=== PATIENT | male | born 1955 | race Caucasian/White ===

== ENCOUNTER 2017-02-27 21:43 | Emergency (ER) | payer OTHER, MEDICAID ==
--- NOTE | 2017-02-27 22:09 | EDM.PDOC ---
ED HPI GENERAL MEDICAL PROBLEM - General Chief Complaint: Neuro Symptoms/Deficits Stated Complaint: JARAD ND Time Seen by Provider: 02/27/17 21:43 - History of Present Illness INITIAL COMMENTS - FREE TEXT/NARRATIVE: 62-year-old male brought in by EMS. Begin patient was at a local bar became lightheaded and pale. He was brought in by EMS. According to patient's the patient has not been feeling well all day today he woke up he had significant weakness on his right side. This was first noticed when he got up at about 11:00 this morning the patient has some generalized weakness secondary to a fall on the ice nearly 2 years ago he usually gets around with the aid of a walker today he awoke with increasing right-sided weakness. This evening he wanted to go visit some friends at the bar and he's had a few drinks he states he's had 4 drinks. During the course the day his speech is been a little bit slower than normal. His thinks his strength in the right side is decreased approximately 50% for more was yesterday. At no point during the course today take any chest pain or chest pressure. - Related Data Allergies Allergy/AdvReac Type Severity Reaction Status Date / Time No Known Allergies Allergy Verified 04/29/15 09:56 Home Meds: Home Meds Acetaminophen [Tylenol] 650 mg PO Q6H PRN 01/16/16 [History] Albuterol [Proventil HFA] 1 - 2 puff INH ASDIRECTED 01/16/16 [History] Baclofen 20 mg PO TID 01/16/16 [History] Famotidine [Pepcid] 40 mg PO DAILY 01/16/16 [History] Furosemide [Lasix] 20 mg PO DAILY #30 tablet 01/16/16 [Rx] Hydrocodone/Acetaminophen [Hydrocodon-Acetaminophen 5-325] 5 - 325 mg PO BEDTIME PRN 01/16/16 [History] Oxybutynin 5 mg PO BID 01/16/16 [History] Tamsulosin [Flomax] 0.4 mg PO DAILY 01/16/16 [History] Tiotropium [Spiriva HandiHaler] 1 puff INH DAILY 01/16/16 [History] traZODone 50 mg PO BEDTIME 01/16/16 [History] Past Medical History Respiratory History: Reports: COPD Gastrointestinal History: Reports: Chronic Constipation Musculoskeletal History: Reports: Back Pain, Chronic, Osteoarthritis - History Comment History Comment: Should rarely sees a physician and therefore not sure if he has any health related problems. Social & Family History - Tobacco Use Smoking Status *Q: Current Every Day Smoker Years of Tobacco use: 40 Packs/Tins Daily: 0.2 - Caffeine Use Caffeine Use: Reports: Coffee, Energy Drinks, Soda - Recreational Drug Use Recreational Drug Use: No ED ROS GENERAL - Review of Systems Review Of Systems: See Below Constitutional: Denies: Fever, Chills HEENT: Reports: No Symptoms Respiratory: Reports: Cough (This is chronic he has some degree of chronic obstructive pulmonary disease) Cardiovascular: Reports: Edema. Denies: Chest Pain Endocrine: Reports: No Symptoms GI/Abdominal: Reports: No Symptoms : Reports: No Symptoms Musculoskeletal: Reports: No Symptoms Neurological: Reports: No Symptoms Psychiatric: Reports: No Symptoms ED EXAM, NEURO - Physical Exam Exam: See Below Exam Limited By: Other (The patient had a significant neck injury that almost left him paralyzed nearly 2 years ago he has some degree of right-sided weakness compared to the left.) General Appearance: Alert, No Apparent Distress, Other (He has been drinking however he is fully cooperative) Eye Exam: Bilateral Eye: Normal Inspection Ears: Normal External Exam, Normal Canal, Hearing Grossly Normal, Normal TMs Nose: Normal Inspection, Normal Mucosa, No Blood Throat/Mouth: Normal Inspection, Normal Oropharynx, Normal Voice, No Airway Compromise, Other (Poor dentition) Head Exam: Atraumatic, Normocephalic Neck: Non-Tender. No: Lymphadenopathy (L), Lymphadenopathy (R) Respiratory/Chest: No Respiratory Distress, Lungs Clear, Normal Breath Sounds Cardiovascular: Normal Peripheral Pulses, Regular Rate, Rhythm, No Edema GI/Abdominal: Normal Bowel Sounds, Soft, Non-Tender Neurological: Alert, Normal Mood/Affect, Other (Significant right-sided weakness compared to the left and according to the much of this is new first noted around 11:00 this morning he can lift his leg up against gravity but has difficulty difficulty holding up he can raise his arm and his roller helper is a lot weaker than it was yesterday he can raise his arm but doesn't have the strength that he had yesterday. His stroke score is 5) Course - Vital Signs Last Recorded V/S: Last Vital Signs Temp 36.4 C 02/27/17 22:00 Pulse 82 02/27/17 22:00 Resp 19 02/27/17 22:00 BP 103/90 02/27/17 22:00 Pulse Ox 85 L 02/27/17 22:00 - Orders/Labs/Meds Orders: Active Orders 24 hr Category Date Time Status EKG Documentation Completion [RC] STAT Care 02/27/17 22:00 Active Cervical Spine 2V or 3V [CR] Stat Exams 02/27/17 22:27 Ordered Cervical Spine wo Cont [CT] Stat Exams 02/27/17 22:20 Stop Req Chest 1V Frontal [CR] Stat Exams 02/27/17 21:59 Ordered Head wo Cont [CT] Stat Exams 02/27/17 21:58 Taken SEDIMENTATION RATE AUTO [HEME] Stat Lab 02/27/17 23:20 Ordered Labs: Laboratory Tests 02/27/17 02/27/17 02/27/17 Range/Units 22:21 22:21 22:21 WBC 4.46 (4.23-9.07) K/mm3 RBC 4.85 (4.63-6.08) M/mm3 Hgb 15.3 (13.7-17.5) gm/L Hct 45.4 (40.1-51.0) % MCV 93.6 H (79.0-92.2) fl MCH 31.5 (25.7-32.2) pg MCHC 33.7 (32.2-35.5) g/dl RDW Std Deviation 47.7 H (35.1-43.9) fL Plt Count 142 L (163-337) K/mm3 MPV 10.8 (9.4-12.3) fl Neutrophils % (Manual) 51 (40-60) % Band Neutrophils % 0 (0-10) % Lymphocytes % (Manual) 33 (20-40) % Atypical Lymphs % 2 % Monocytes % (Manual) 11 H (2-10) % Eosinophils % (Manual) 0 L (0.8-7.0) % Basophils % (Manual) 3 H (0.2-1.2) Platelet Estimate Adequate Plt Morphology Comment Normal Polychromasia 1+ slight Poikilocytosis 1+ slight Anisocytosis 1+ slight Microcytosis 1+ slight Macrocytosis 1+ slight RBC Morph Comment Abnormal PT 9.8 (8.0-13.0) SECONDS INR 0.90 APTT 26 (22-36) SECONDS Sodium 140 (136-145) mEq/L Potassium 3.7 (3.5-5.1) mEq/L Chloride 106 (98-107) mEq/L Carbon Dioxide 26 (21-32) mEq/L Anion Gap 11.7 (5-15) BUN 11 (7-18) mg/dL Creatinine 1.1 (0.7-1.3) mg/dL Est Cr Clr Drug Dosing TNP Estimated GFR (MDRD) > 60 (>60) mL/min BUN/Creatinine Ratio 10.0 L (14-18) Glucose 114 (80-115) mg/dL Calcium 9.1 (8.5-10.1) mg/dL Total Bilirubin 0.5 (0.2-1.0) mg/dL AST 24 (15-37) U/L ALT 46 (16-63) U/L Alkaline Phosphatase 85 (46-116) U/L Troponin I < 0.017 (0.00-0.056) ng/mL C-Reactive Protein (<1.0) mg/dL Total Protein 7.2 (6.4-8.2) g/dl Albumin 3.4 (3.4-5.0) g/dl Globulin 3.8 gm/dL Albumin/Globulin Ratio 0.9 L (1-2) Ethyl Alcohol 0.12 (0.00) gm% // Range/Units 22:21 WBC (4.23-9.07) K/mm3 RBC (4.63-6.08) M/mm3 Hgb (13.7-17.5) gm/L Hct (40.1-51.0) % MCV (79.0-92.2) fl MCH (25.7-32.2) pg MCHC (32.2-35.5) g/dl RDW Std Deviation (35.1-43.9) fL Plt Count (163-337) K/mm3 MPV (9.4-12.3) fl Neutrophils % (Manual) (40-60) % Band Neutrophils % (0-10) % Lymphocytes % (Manual) (20-40) % Atypical Lymphs % % Monocytes % (Manual) (2-10) % Eosinophils % (Manual) (0.8-7.0) % Basophils % (Manual) (0.2-1.2) Platelet Estimate Plt Morphology Comment Polychromasia Poikilocytosis Anisocytosis Microcytosis Macrocytosis RBC Morph Comment PT (8.0-13.0) SECONDS INR APTT (22-36) SECONDS Sodium (136-145) mEq/L Potassium (3.5-5.1) mEq/L Chloride (98-107) mEq/L Carbon Dioxide (21-32) mEq/L Anion Gap (5-15) BUN (7-18) mg/dL Creatinine (0.7-1.3) mg/dL Est Cr Clr Drug Dosing Estimated GFR (MDRD) (>60) mL/min BUN/Creatinine Ratio (14-18) Glucose (80-115) mg/dL Calcium (8.5-10.1) mg/dL Total Bilirubin (0.2-1.0) mg/dL AST (15-37) U/L ALT (16-63) U/L Alkaline Phosphatase (46-116) U/L Troponin I (0.00-0.056) ng/mL C-Reactive Protein 1.5 H* (<1.0) mg/dL Total Protein (6.4-8.2) g/dl Albumin (3.4-5.0) g/dl Globulin gm/dL Albumin/Globulin Ratio (1-2) Ethyl Alcohol (0.00) gm% - Re-Assessments/Exams Free Text/Narrative Re-Assessment/Exam: 02/27/17 23:38 Evaluation is nondiagnostic thus far he could very well about a little stroke adding to his right-sided weakness however the symptoms were first noted around 11:00 this morning this evening he had what sounds like a prolonged vasovagal type reaction lasting 10:15 minutes were he had garbled speech no increased weakness he was pale and diaphoretic this improved on its own. The patient has a history of a significant cervical spine injury nearly 2 years ago. He could have a complication associated with this albeit no history of recent trauma. EKG is nondiagnostic he has normal sinus rhythm borderline axis, intervals normal no acute ST-T wave changes CVA is certainly in the working diagnosis cannot exclude something going on in his C-spine versus other causes. Case was discussed with Dr. Benavides your physician at [facility] in [place] who agrees further evaluation beyond what I can do [place] is indicated and is willing to accept the patient. Departure - Departure Time of Disposition: 23:41 Disposition: DC/Tfer to Acute Hospital 02 Clinical Impression: Right sided weakness - Discharge Information Referrals: PCP,Unknown [Ordering Only Provider] - Forms: ED Department Discharge - My Orders Last 24 Hours: My Active Orders 02/27/17 21:58 Head wo Cont [CT] Stat 02/27/17 21:59 Chest 1V Frontal [CR] Stat 02/27/17 22:00 EKG Documentation Completion [RC] STAT 02/27/17 22:20 Cervical Spine wo Cont [CT] Stat 02/27/17 22:27 Cervical Spine 2V or 3V [CR] Stat 02/27/17 23:20 SEDIMENTATION RATE AUTO [HEME] Stat - Assessment/Plan Last 24 Hours: My Active Orders 02/27/17 21:58 Head wo Cont [CT] Stat 02/27/17 21:59 Chest 1V Frontal [CR] Stat 02/27/17 22:00 EKG Documentation Completion [RC] STAT 02/27/17 22:20 Cervical Spine wo Cont [CT] Stat 02/27/17 22:27 Cervical Spine 2V or 3V [CR] Stat 02/27/17 23:20 SEDIMENTATION RATE AUTO [HEME] Stat
[2017-02-27 23:27] VITALS: BP 103/90
--- NOTE | 2017-02-28 08:43 | CR ---
Chest: Frontal view of the chest was obtained. Comparison: No prior chest x-ray. Mild atelectasis is seen within both lung bases. Lungs otherwise are clear. Heart size and mediastinum are normal. Bony structures are grossly intact. Previous cervical spine surgery is partially seen. Impression: 1. Mild bibasilar atelectasis. Nothing acute is appreciated on frontal chest x-ray. Diagnostic code #2
--- NOTE | 2017-02-28 08:43 | CR ---
Cervical spine: AP, lateral and odontoid views of the cervical spine were obtained. Comparison: Previous MRI cervical spine exam of 04/29/15 is available. Previous surgery noted at C3, C4 and C5. Mild disc space narrowing is noted at C5-C6 and C6-C7. Scoliosis is noted. Anterior osteophytes are noted within the lower cervical spine. Nothing acute is otherwise seen. Impression: 1. Previous cervical spine surgery. Mild degenerative change within the lower cervical spine. Diagnostic code #2
--- NOTE | 2017-02-28 10:43 | CT ---
Head CT Technique: Multiple axial sections through the brain were obtained. Comparison: Prior head CT study of 04/29/15. Findings: Ventricles along with basal cisterns and sulci over the convexities are mildly prominent. 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 No other abnormal parenchymal densities are seen. No evidence of intracranial hemorrhage. No midline shift or mass effect is seen. Bone window settings were reviewed which show no acute calvarial abnormality. Near-complete opacification of the left maxillary sinus is seen. Minimal areas of mucosal thickening are seen within the ethmoid sinuses. Impression: 1. Chronic sinusitis within the left maxillary sinus and ethmoid sinuses. 2. 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 3. No acute intracranial abnormality is identified. Diagnostic code #2 Agree with preliminary report issued by [facility], 02/27/17, 11:17 PM Central Time
== END 2017-02-28 00:19 ==
LOC: JD.ED 21:43
DX: R53.1 Weakness (principal); F17.210 Nicotine dependence, cigarettes, uncomplicated; Z79.899 Other long term (current) drug therapy
CPT/HCPCS: 36415; 70450; 71010; 72040; 80053; 84484; 85025; 85610; 85652; 85730; 86140; 93005; 99285; G0480; 93010

== ENCOUNTER 2017-10-27 00:02 | Emergency (ER) | payer OTHER, MEDICARE ==
[2017-10-27 00:15] VITALS: BP 160/84
--- NOTE | 2017-10-27 01:08 | EDM.PDOC ---
ED HPI GENERAL MEDICAL PROBLEM - General Chief Complaint: Genitourinary Problem Stated Complaint: TROUBLE URINATING Time Seen by Provider: 10/27/17 00:12 Source of Information: Reports: Patient, Family History Limitations: Reports: No Limitations - History of Present Illness INITIAL COMMENTS - FREE TEXT/NARRATIVE: This is a 62-year-old male. He has not been able to urinate well for the last 12 hours. He feels like he is full and he only dribbles. He has a history of a cervical spine injury causing decreased strength in his lower extremities and especially his right upper extremity. He is able to walk with a walker but he has limited movement and strength of his extremities. He's had an episode of being unable to urinate and back in February they required a catheter to drain his bladder and then after that he did fine. He does take medication at night to keep him from urinating and I suggested that they stop those medicines until his bladder first to work appropriately again. The bladder scanner showed greater than 270 mL of urine in the bladder. He denies any fever or chills denies any cough or congestion and there's been no nausea or vomiting. Lower Abdomen Pain Score (Numeric/FACES): 8 - Related Data Allergies Allergy/AdvReac Type Severity Reaction Status Date / Time No Known Allergies Allergy Verified 10/27/17 00:12 Home Meds: Home Meds Baclofen 20 mg PO QID 01/16/16 [History] Famotidine [Pepcid] 40 mg PO DAILY 01/16/16 [History] Oxybutynin 5 mg PO BID 01/16/16 [History] Tamsulosin [Flomax] 0.4 mg PO DAILY 01/16/16 [History] Tiotropium [Spiriva HandiHaler] 1 puff INH DAILY 01/16/16 [History] Past Medical History Respiratory History: Reports: COPD Gastrointestinal History: Reports: Chronic Constipation Genitourinary History: Reports: Urinary Incontinence, Other (See Below) Other Genitourinary History: frequency Musculoskeletal History: Reports: Back Pain, Chronic, Osteoarthritis Neurological History: Reports: Concussion - Past Surgical History Neurological Surgical History: Reports: Other (See Below) Other Neurological Surgeries/Procedures: spinal injury to C5, cage to C4, 5 & 6. - History Comment History Comment: Should rarely sees a physician and therefore not sure if he has any health related problems. Social & Family History - Family History Family Medical History: Noncontributory - Tobacco Use Smoking Status *Q: Current Every Day Smoker Years of Tobacco use: 52 Packs/Tins Daily: 0.5 - Caffeine Use Caffeine Use: Reports: Coffee, Energy Drinks, Soda - Recreational Drug Use Recreational Drug Use: No ED ROS GENERAL - Review of Systems Review Of Systems: See Below Constitutional: Denies: Fever, Chills HEENT: Reports: No Symptoms Respiratory: Reports: No Symptoms Cardiovascular: Reports: No Symptoms Endocrine: Reports: No Symptoms GI/Abdominal: Denies: Abdominal Pain, Diarrhea, Nausea, Vomiting : Reports: Urinary Retention Musculoskeletal: Reports: Other (As per history of present illness) Skin: Reports: No Symptoms Neurological: Reports: No Symptoms (As per history of present illness) Psychiatric: Reports: No Symptoms Hematologic/Lymphatic: Reports: No Symptoms ED EXAM, GI/ABD - Physical Exam Exam: See Below Exam Limited By: No Limitations General Appearance: Alert, WD/WN, No Apparent Distress Eyes: Bilateral: Normal Appearance Ears: Normal External Exam Nose: Normal Inspection Throat/Mouth: Normal Inspection, Normal Lips, Normal Voice, No Airway Compromise Head: Normocephalic Neck: Non-Tender Respiratory/Chest: No Respiratory Distress, Lungs Clear, Normal Breath Sounds Cardiovascular: Regular Rate, Rhythm, No Murmur GI/Abdominal Exam: Soft, Other (May be some mild bladder distention noted in the lower abdomen with some tenderness on palpation, no other tenderness noted of the abdomen and no rebound noted) Extremities: Limited Range of Motion, Other (The patient has much decreased use of his right upper extremity and his hand, his lower extremities have some 1+ pitting edema noted.) Neurological: Alert, Oriented Psychiatric: Normal Affect, Normal Mood Skin Exam: Warm, Dry Course - Vital Signs Last Recorded V/S: Last Vital Signs Temp 98.1 F 10/27/17 00:12 Pulse 96 10/27/17 00:12 Resp 18 10/27/17 00:12 BP 160/84 H 10/27/17 00:12 Pulse Ox 91 L 10/27/17 00:12 - Orders/Labs/Meds Labs: Laboratory Tests 10/27/17 Range/Units 00:35 Urine Color Yellow (Yellow) Urine Appearance Clear (Clear) Urine pH 6.5 (5.0-8.0) Ur Specific [place] 1.015 (1.005-1.030) Urine Protein Negative (Negative) Urine Glucose (UA) Negative (Negative) Urine Ketones Negative (Negative) Urine Occult Blood Negative (Negative) Urine Nitrite Negative (Negative) Urine Bilirubin Negative (Negative) Urine Urobilinogen 0.2 (0.2-1.0) Ur Leukocyte Esterase Negative (Negative) Urine RBC 0-5 (0-5) /hpf Urine WBC 0-5 (0-5) /hpf Ur Epithelial Cells Not seen (0-5) /hpf Urine Bacteria Not seen (FEW) /hpf Urine Mucus Not seen (FEW) /hpf - Re-Assessments/Exams Free Text/Narrative Re-Assessment/Exam: 10/27/17 01:53 I spoke to the family regarding the normal urinalysis results. He's had a total of about 350 mL drained from his bladder. They want us to remove the catheter and they're going to stop his Ditropan and continue his Flomax and they believe that will help him be able to urinate and get back to normal again. I did caution them that if he continues to have problems with urination over the next 12 hours he might need to return for a catheter for a few days. They understand. Departure - Departure Time of Disposition: 01:54 Disposition: Home, Self-Care 01 Condition: Fair Clinical Impression: Urinary retention - Discharge Information *PRESCRIPTION DRUG MONITORING PROGRAM REVIEWED*: Not Applicable *COPY OF PRESCRIPTION DRUG MONITORING REPORT IN PATIENT MIGUEL: Not Applicable Referrals: Ga Dunn Jr, MD [Primary Care Provider] - Forms: ED Department Discharge Additional Instructions: Follow-up with your family doctor this coming week for recheck, if you continue to have problems with urination return to the ER for a catheter that will stay in for a couple of days, stop the Ditropan and continue the Flomax, recheck the ER as needed
== END 2017-10-27 02:05 | disposition home or self-care (01) ==
LOC: JD.ED 00:02
DX: R33.9 Retention of urine, unspecified (principal); J44.9 Chronic obstructive pulmonary disease, unspecified; F17.210 Nicotine dependence, cigarettes, uncomplicated; Z79.899 Other long term (current) drug therapy
CPT/HCPCS: 51702; 51798; 81001; 99283-25

== ENCOUNTER 2017-11-20 15:07 | Emergency (ER) | payer MEDICARE, OTHER ==
[2017-11-20 15:18] VITALS: BP 149/91
--- NOTE | 2017-11-20 15:31 | EDM.PDOC ---
ED HPI GENERAL MEDICAL PROBLEM - General Chief Complaint: Genitourinary Problem Stated Complaint: NOT EMPTYING HIS BLADDER Time Seen by Provider: 11/20/17 15:31 Source of Information: Reports: Patient History Limitations: Reports: No Limitations - History of Present Illness INITIAL COMMENTS - FREE TEXT/NARRATIVE: Patient is a 62 year old male with history of cervical spine fracture 2015 who presents the ED with the sensation to urinate but unable to. States he has not urinated for almost 11 hours. When he attempts there is only small amount of dribbling present. He has a sensation that he needs to urinate and has some discomfort to suprapubic region. Patient had the cervical spine fracture with with paralysis to upper/lower extremities for almost one month. This required cervical spine surgery to stabilize the fracture. Patient since has been having issues with urinary retention. He has been evaluated multiple times by [facility]. States 11/08/[address] Rivas and had the oxybutin discontinued. Patient was 10/27/2017 in the E.D. He had not been able to urinate for the last 12 hours as well with only minimal dribbling present. Bladder scan showed greater than 270 mls. Patient had a normal urinalysis. He had approximately 350 mL draining from his bladder. Patient wanted the catheter removed. The n and continue the Flomax. He was cautioned if he continues to have problems with urination over the next 12 hours he might need a return for catheter for a few days. They understood this. abdomen Pain Score (Numeric/FACES): 9 - Related Data Allergies Allergy/AdvReac Type Severity Reaction Status Date / Time No Known Allergies Allergy Verified 11/20/17 15:18 Home Meds: Home Meds Baclofen 20 mg PO QID 01/16/16 [History] Famotidine [Pepcid] 40 mg PO DAILY 01/16/16 [History] Tamsulosin [Flomax] 0.4 mg PO DAILY 01/16/16 [History] Tiotropium [Spiriva HandiHaler] 1 puff INH DAILY 01/16/16 [History] Acetaminophen [Tylenol Extra Strength] 500 mg PO Q4H PRN 11/20/17 [History] Acetaminophen/HYDROcodone [[place] 325-5 MG] 1 tab PO BEDTIME PRN 11/20/17 [ History] Albuterol [Proventil HFA] 1 puff INH QID PRN 11/20/17 [History] Bisacodyl [Dulcolax] 10 mg RC Q48H 11/20/17 [History] Docusate Sodium [Colace] 100 mg PO ASDIRECTED 11/20/17 [History] Nitroglycerin [Nitro-Bid 2%] 1 inch TOP ASDIRECTED PRN 11/20/17 [History] Nystatin [Nystop] 1 applic TP BID 11/20/17 [History] Umeclidinium Brm/Vilanterol Tr [Anoro Ellipta 62.5-25 MCG] 1 puff IH DAILY 11/20 [History] Past Medical History Respiratory History: Reports: COPD, SOB, Other (See Below) Other Respiratory History: decreased oxygen saturations Gastrointestinal History: Reports: Chronic Constipation, GERD Genitourinary History: Reports: Retention, Urinary, Urinary Incontinence, Other (See Below) Other Genitourinary History: frequency Musculoskeletal History: Reports: Back Pain, Chronic, Fracture, Osteoarthritis Other Musculoskeletal History: 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 - History Comment History Comment: Should rarely sees a physician and therefore not sure if he has any health related problems. Social & Family History - Family History Family Medical History: Noncontributory - Tobacco Use Smoking Status *Q: Current Every Day Smoker Years of Tobacco use: 40 Packs/Tins Daily: 0.2 - Caffeine Use Caffeine Use: Reports: Coffee - Recreational Drug Use Recreational Drug Use: No ED ROS GENERAL - Review of Systems Review Of Systems: ROS reveals no pertinent complaints other than HPI. ED EXAM, RENAL/ - Physical Exam Exam: See Below Exam Limited By: No Limitations General Appearance: Alert, WD/WN, No Apparent Distress Ears: Hearing Grossly Normal Nose: Normal Inspection Throat/Mouth: Normal Voice, No Airway Compromise Neck: Normal Inspection, Supple Respiratory/Chest: No Respiratory Distress, Lungs Clear, Normal Breath Sounds, No Accessory Muscle Use, Chest Non-Tender Cardiovascular: Normal Peripheral Pulses, Regular Rate, Rhythm GI/Abdominal: Normal Bowel Sounds, Soft, Non-Tender, No Organomegaly, No Distention (Male) Exam: Suprapubic Fullness (with pain per patient. ). No: Scrotum Tenderness (L), Scrotum Tenderness (R), Testicular Tenderness (L), Testicular Tenderness (R), Urethral Discharge Back Exam: Normal Inspection Extremities: Non-Tender, Pedal Edema (1+ bilateral) Neurological: Alert, Oriented, CN II-XII Intact, Normal Cognition Psychiatric: Normal Affect, Normal Mood Skin Exam: Warm, Dry, Intact, Normal Color, No Rash Course - Vital Signs Last Recorded V/S: Last Vital Signs Temp 97.7 F 11/20/17 15:10 Pulse 90 11/20/17 15:10 Resp 20 11/20/17 15:10 BP 149/91 H 11/20/17 15:10 Pulse Ox 91 L 11/20/17 15:10 - Orders/Labs/Meds Orders: Active Orders 24 hr Category Date Time Status Bladder Scan [RC] ASDIRECTED Care 11/20/17 15:30 Active Labs: Laboratory Tests 11/20/17 Range/Units 15:53 Urine Color Yellow (Yellow) Urine Appearance Clear (Clear) Urine pH 6.0 (5.0-8.0) Ur Specific [place] > or = 1.030 (1.005-1.030) Urine Protein Trace H (Negative) Urine Glucose (UA) Negative (Negative) Urine Ketones Negative (Negative) Urine Occult Blood Negative (Negative) Urine Nitrite Negative (Negative) Urine Bilirubin Negative (Negative) Urine Urobilinogen 0.2 (0.2-1.0) Ur Leukocyte Esterase Negative (Negative) Urine RBC 0-5 (0-5) /hpf Urine WBC 0-5 (0-5) /hpf Ur Epithelial Cells 0-5 (0-5) /hpf Urine Bacteria Few (FEW) /hpf Urine Mucus Moderate H (FEW) /hpf - Re-Assessments/Exams Free Text/Narrative Re-Assessment/Exam: Bladder scan revealed 198 mL present. Quick in and out catheter will be obtained. Patient was refusing indwelling catheter. He will return back to the ED for quick in and IF needed. UA was ordered which came back negative for infection. Reassessment, patient had approximately 200 mL of urine with quick in and out catheter. Patient refuses being discharged home with a Conteh catheter. He is well aware that he may need to return to the ED for quick in and out catheter to drain his urine. He will speak to his urologist to discuss performing the quick in and out catheter at home. Patient states he is feeling better after urine has been drained. The patient remained hemodynamically stable while under my care in the E.D. I discussed the concerning symptoms for which to return to the E.D. with the patient/family. The patient/family verbalized understanding. All questions were answered. Departure - Departure Time of Disposition: 16:55 Disposition: Home, Self-Care 01 Condition: Good Clinical Impression: Urinary retention - Discharge Information Forms: ED Department Discharge Additional Instructions: As discussed 200 mL of urine was drained from her bladder with quick in and out catheter. U may require additional draining of your bladder with quick in and out catheter secondary to chronic urinary retention. Please return back to ED if you have the sensation of needing to void with the inability too. I would contact your urologist to discuss performing the quick in and out catheter at home. This will require some instruction on how to do so. Please return to ED if you develop any new or worsening symptoms. Continue taking all your home medications as prescribed. - My Orders Last 24 Hours: My Active Orders 11/20/17 15:30 Bladder Scan [RC] ASDIRECTED - Assessment/Plan Last 24 Hours: My Active Orders 11/20/17 15:30 Bladder Scan [RC] ASDIRECTED
== END 2017-11-20 17:14 | disposition home or self-care (01) ==
LOC: JD.ED 15:07
DX: R33.9 Retention of urine, unspecified (principal); F17.210 Nicotine dependence, cigarettes, uncomplicated; Z79.899 Other long term (current) drug therapy
CPT/HCPCS: 51798; 81001; 99283; 99283-25

== ENCOUNTER 2021-01-10 10:20 | Inpatient (IN) | payer MEDICARE, OTHER ==
[2021-01-10] MEDS ORDERED: Sodium Chloride 0.9% 10 ML Syringe FLUSH PRN ×2 (10:39→12:32)
--- NOTE | 2021-01-10 12:23 | EDM.PDOC ---
ED HPI GENERAL MEDICAL PROBLEM - General Chief Complaint: Gastrointestinal Problem Stated Complaint: JARAD AMB Time Seen by Provider: 01/10/21 12:02 Source of Information: Reports: Patient, Family, RN Notes Reviewed History Limitations: Reports: No Limitations - History of Present Illness INITIAL COMMENTS - FREE TEXT/NARRATIVE: Patient is a 65-year-old male presenting to the emergency department with complaints of GI bleed. Patient was discharged from [facility] 5 days ago after having a total of 3-1/2-week stay in the hospital and acute care facility for COPD exacerbation. Patient has a history of spinal cord injury and is quadriplegic due to this. He also has COPD. reports that the day they were discharged, she noticed small amounts of blood in his stool. He was initially constipated upon discharge, however, the stools have been loose since the day following discharge. The amount of blood has been progressively increasing since that time as well. Patient complains of "tightness "across his abdomen.. Reports that he has pressure ulcer on his coccyx which he developed while in the [facility]. Patient has no history of GI bleed. He is not currently on any anticoagulation or NSAIDs. - Related Data Allergies Allergy/AdvReac Type Severity Reaction Status Date / Time No Known Allergies Allergy Verified 01/10/21 10:36 Home Meds: Home Meds Baclofen 10 mg PO QID 01/16/16 [History] Famotidine [Pepcid] 40 mg PO DAILY 01/16/16 [History] Tiotropium [Spiriva HandiHaler] 1 puff INH DAILY 01/16/16 [History] Acetaminophen [Tylenol Extra Strength] 500 mg PO Q4H PRN 11/20/17 [History] Albuterol [Proventil HFA] 1 puff INH Q6H PRN 11/20/17 [History] Nitroglycerin [Nitro-Bid 2%] 1 inch TOP ASDIRECTED PRN 11/20/17 [History] bisacodyL [Dulcolax] 10 mg RC DAILY PRN 11/20/17 [History] Baclofen 10 mg PO BEDTIME 01/10/21 [History] Diclofenac Sodium [Voltaren] 1 applic TOP TID 01/10/21 [History] Fluticasone Propionate [Allergy Relief] 1 puff NASBOTH BID 01/10/21 [History] Hydrocodone/Acetaminophen [HYDROcodone-Acetaminophen 5-325 MG] 1 tab PO BEDTIME PRN 01/10/21 [History] Lidocaine 5% [Lidoderm 5%] 1 patch TOP DAILY 01/10/21 [History] Menthol [Biofreeze] 1 applic TOP Q2H PRN 01/10/21 [History] Menthol/Zinc Oxide [Calmoseptine] 1 applic TOP Q1H PRN 01/10/21 [History] Simethicone 80 mg PO Q6H PRN 01/10/21 [History] Tamsulosin [Flomax] 0.8 mg PO BEDTIME 01/10/21 [History] guaiFENesin [Mucinex] 1,200 mg PO BID 01/10/21 [History] predniSONE [Prednisone] 40 mg PO DAILY 01/10/21 [History] Past Medical History Respiratory History: Reports: COPD, SOB, Other (See Below) Other Respiratory History: decreased oxygen saturations, home oxygen 3L [place] Gastrointestinal History: Reports: Chronic Constipation, GERD Genitourinary History: Reports: Retention, Urinary, Urinary Incontinence, Other (See Below) Other Genitourinary History: frequency Musculoskeletal History: Reports: Back Pain, Chronic, Fracture, Osteoarthritis Other Musculoskeletal History: 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 - History Comment History Comment: Should rarely sees a physician and therefore not sure if he has any health related problems. Social & Family History - Family History Family Medical History: No Pertinent Family History - Tobacco Use Tobacco Use Status *Q: Former Tobacco User Used Tobacco, but Quit: Yes Month/Year Tobacco Last Used: 1 month ago - Caffeine Use Caffeine Use: Reports: Coffee - Recreational Drug Use Recreational Drug Use: No ED ROS GENERAL - Review of Systems Review Of Systems: See Below Constitutional: Reports: No Symptoms. Denies: Fever HEENT: Reports: No Symptoms Respiratory: Reports: No Symptoms. Denies: Shortness of Breath, Cough Cardiovascular: Reports: No Symptoms. Denies: Chest Pain Endocrine: Reports: No Symptoms GI/Abdominal: Reports: Bloody Stool, Other (abdominal "tightness"). Denies: Nausea, Vomiting : Reports: Incontinence Musculoskeletal: Reports: No Symptoms Skin: Reports: No Symptoms Neurological: Reports: Pre-Existing Deficit (quadriplegic d/t hx of spinal cord injury) Psychiatric: Reports: No Symptoms Hematologic/Lymphatic: Reports: No Symptoms Immunologic: Reports: No Symptoms ED EXAM, GI/ABD - Physical Exam Exam: See Below Exam Limited By: No Limitations General Appearance: Alert, WD/WN, No Apparent Distress Respiratory/Chest: No Respiratory Distress, No Accessory Muscle Use, Chest Non- Tender, Other (faint fine crackles to bilateral bases). No: Wheezing Cardiovascular: Normal Peripheral Pulses, Regular Rate, Rhythm, No Edema, No Gallop, No JVD, No Murmur, No Rub GI/Abdominal Exam: Normal Bowel Sounds, Soft, Non-Tender, No Organomegaly, No Distention, No Abnormal Bruit, No Mass, Pelvis Stable Neurological: Alert, Oriented, Normal Cognition, Sensory/Motor Deficit (chad driplegic. limited movement of upper extremities) Psychiatric: Normal Affect, Normal Mood Skin Exam: Warm, Dry, Normal Color, Other (stage II decubitus ulcer to coccyx) Lymphatic: No Adenopathy Course - Vital Signs Last Recorded V/S: Last Vital Signs Temp 97.8 F 01/10/21 10:33 Pulse 80 01/10/21 10:33 Resp 16 01/10/21 10:33 BP 122/78 01/10/21 10:33 Pulse Ox 92 L 01/10/21 10:33 - Orders/Labs/Meds Orders: Active Orders 24 hr Category Date Time Status Admission Status [Patient Status] [ADT] Routine ADT 01/10/21 14:08 Active Cardiac Monitoring [RC] . DIRECTED Care 01/10/21 14:08 Active Sodium Chloride 0.9% [Saline Flush] Med 01/10/21 10:39 Active 10 ml FLUSH ASDIRECTED PRN Sodium Chloride 0.9% [Saline Flush] Med 01/10/21 12:32 Active 10 ml FLUSH ONETIME PRN Saline Lock Insert [OM.PC] Routine Oth 01/10/21 10:39 Ordered Medication Orders Acetaminophen (Acetaminophen 325 Mg Tab) 650 mg PO Q4H PRN PRN Reason: Pain (Mild 1-3)/fever Hydrocodone Bitart/Acetaminophen (Acetaminophen/Hydrocodone 325-5 Mg Tab) 1 tab PO Q4H PRN PRN Reason: Pain (moderate 4-6) Famotidine (Famotidine 20 Mg/2 Ml Sdv) 20 mg IVPUSH BEDTIME RACHELE Hydromorphone HCl (Hydromorphone 0.5 Mg/0.5 Ml Syringe) 0.25 mg IVPUSH Q2H PRN PRN Reason: Pain (severe 7-10) Sodium Chloride (Normal Saline) 1,000 mls @ 100 mls/hr IV ASDIRECTED RACHELE Ondansetron HCl (Ondansetron 4 Mg/2 Ml Sdv) 4 mg IV Q4H PRN PRN Reason: Nausea/Vomiting Sodium Chloride (Sodium Chloride 0.9% 10 Ml Syringe) 10 ml FLUSH ASDIRECTED PRN PRN Reason: Keep Vein Open Last Admin: 01/10/21 10:49 Dose: 10 ml Documented by: JEANNINE Sodium Chloride (Sodium Chloride 0.9% 10 Ml Syringe) 10 ml FLUSH ONETIME PRN PRN Reason: IV FLUSH Last Admin: 01/10/21 12:58 Dose: 10 ml Documented by: FORD Temazepam (Temazepam 7.5 Mg Cap) 7.5 mg PO BEDTIME PRN PRN Reason: Sleep Labs: Laboratory Tests 01/10/21 01/10/21 01/10/21 Range/Units 11:01 11:01 11:01 WBC 5.54 (4.23-9.07) K/mm3 RBC 5.03 (4.63-6.08) M/mm3 Hgb 16.5 (13.7-17.5) gm/dl Hct 50.4 (40.1-51.0) % MCV 100.2 H D (79.0-92.2) fl MCH 32.8 H (25.7-32.2) pg MCHC 32.7 (32.2-35.5) g/dl RDW Std Deviation 52.0 H (35.1-43.9) fL Plt Count 97 L (163-337) K/mm3 MPV 10.7 (9.4-12.3) fl Neutrophils % (Manual) 65 H (40-60) % Band Neutrophils % 0 (0-10) % Lymphocytes % (Manual) 26 (20-40) % Atypical Lymphs % 0 % Monocytes % (Manual) 7 (2-10) % Eosinophils % (Manual) 2 (0.8-7.0) % Basophils % (Manual) 0 L (0.2-1.2) Platelet Estimate Adequate RBC Morph Comment Normal PT 9.9 (9.7-12.0) SECONDS INR < 0.93 Sodium 142 (136-145) mEq/L Potassium 5.1 (3.5-5.1) mEq/L Chloride 105 (98-107) mEq/L Carbon Dioxide 37 H D (21-32) mEq/L Anion Gap 5.1 (5-15) BUN 15 (7-18) mg/dL Creatinine 1.0 (0.7-1.3) mg/dL Est Cr Clr Drug Dosing TNP Estimated GFR (MDRD) > 60 (>60) mL/min BUN/Creatinine Ratio 15.0 (14-18) Glucose 115 H (70-99) mg/dL Calcium 8.7 (8.5-10.1) mg/dL Total Bilirubin 1.1 H (0.2-1.0) mg/dL AST 13 L (15-37) U/L ALT 40 (16-63) U/L Alkaline Phosphatase 69 (46-116) U/L Total Protein 6.2 L (6.4-8.2) g/dl Albumin 2.6 L (3.4-5.0) g/dl Globulin 3.6 gm/dL Albumin/Globulin Ratio 0.7 L (1-2) SARS-CoV-2 RNA (BEN) (NEGATIVE) 01/10/21 Range/Units 13:46 WBC (4.23-9.07) K/mm3 RBC (4.63-6.08) M/mm3 Hgb (13.7-17.5) gm/dl Hct (40.1-51.0) % MCV (79.0-92.2) fl MCH (25.7-32.2) pg MCHC (32.2-35.5) g/dl RDW Std Deviation (35.1-43.9) fL Plt Count (163-337) K/mm3 MPV (9.4-12.3) fl Neutrophils % (Manual) (40-60) % Band Neutrophils % (0-10) % Lymphocytes % (Manual) (20-40) % Atypical Lymphs % % Monocytes % (Manual) (2-10) % Eosinophils % (Manual) (0.8-7.0) % Basophils % (Manual) (0.2-1.2) Platelet Estimate RBC Morph Comment PT (9.7-12.0) SECONDS INR Sodium (136-145) mEq/L Potassium (3.5-5.1) mEq/L Chloride (98-107) mEq/L Carbon Dioxide (21-32) mEq/L Anion Gap (5-15) BUN (7-18) mg/dL Creatinine (0.7-1.3) mg/dL Est Cr Clr Drug Dosing Estimated GFR (MDRD) (>60) mL/min BUN/Creatinine Ratio (14-18) Glucose (70-99) mg/dL Calcium (8.5-10.1) mg/dL Total Bilirubin (0.2-1.0) mg/dL AST (15-37) U/L ALT (16-63) U/L Alkaline Phosphatase (46-116) U/L Total Protein (6.4-8.2) g/dl Albumin (3.4-5.0) g/dl Globulin gm/dL Albumin/Globulin Ratio (1-2) SARS-CoV-2 RNA (BEN) Positive H (NEGATIVE) Meds: Medications Generic Name Dose Route Start Last Admin Trade Name Freq PRN Reason Stop Dose Admin Acetaminophen 650 mg 01/10/21 14:11 Acetaminophen 325 Mg Tab PO Q4H PRN Pain (Mild 1-3)/fever Hydrocodone Bitart/Acetaminophen 1 tab 01/10/21 14:11 Acetaminophen/Hydrocodone 325-5 Mg Tab PO Q4H PRN Pain (moderate 4-6) Famotidine 20 mg 01/10/21 21:00 Famotidine 20 Mg/2 Ml Sdv IVPUSH BEDTIME RACHELE Hydromorphone HCl 0.25 mg 01/10/21 14:11 Hydromorphone 0.5 Mg/0.5 Ml Syringe IVPUSH Q2H PRN Pain (severe 7-10) Sodium Chloride 1,000 mls @ 100 mls/hr 01/10/21 15:00 Normal Saline IV ASDIRECTED RACHELE Ondansetron HCl 4 mg 01/10/21 14:11 Ondansetron 4 Mg/2 Ml Sdv IV Q4H PRN Nausea/Vomiting Sodium Chloride 10 ml 01/10/21 10:39 01/10/21 10:49 Sodium Chloride 0.9% 10 Ml Syringe FLUSH 10 ml ASDIRECTED PRN Administration Keep Vein Open Sodium Chloride 10 ml 01/10/21 12:32 01/10/21 12:58 Sodium Chloride 0.9% 10 Ml Syringe FLUSH 10 ml ONETIME PRN Administration IV FLUSH Temazepam 7.5 mg 01/10/21 14:11 Temazepam 7.5 Mg Cap PO BEDTIME PRN Sleep Discontinued Medications Generic Name Dose Route Start Last Admin Trade Name Freq PRN Reason Stop Dose Admin Iopamidol 50 ml 01/10/21 12:32 01/10/21 12:58 Iopamidol 612 Mg/Ml 50 Ml Sdv IVPUSH 01/10/21 12:33 50 ml ONETIME ONE Administration Iopamidol 100 ml 01/10/21 12:32 01/10/21 12:58 Iopamidol 612 Mg/Ml 100 Ml Bottle IVPUSH 01/10/21 12:33 100 ml ONETIME ONE Administration - Re-Assessments/Exams Free Text/Narrative Re-Assessment/Exam: Patient is a 65-year-old male presenting to the ER with his with concerns of GI bleed which has been progressively worsening over the course of last 5 days. Rectal exam was completed and was grossly positive for fallon red blood. Blood work was completed using standing orders and was found to be unremarkable. Case was discussed with general surgeon, Dr. Viveros. He recommended CT of the abdomen pelvis with IV contrast and depending on the results, possible admission to observation with a consult to him. I have ordered CT scan of the abdomen pelvis with IV contrast. 01/10/21 14:00 CT scan of the abdomen pelvis impression as follows: 1. Small aneurysmal dilatation of the distal abdominal aorta at 2.7 cm. 2. Minimal cyst within the upper left kidney. 3. 1.0 cm lucent lesion within T12 which is stable and most likely incidental as no other lucent areas are seen within the osseous system. 4. Patchy areas of consolidation are seen within both lung bases most likely representing mild bibasilar pneumonia. Please correlate with the patient's symptoms. 5. Nothing is appreciated to indicate an etiology for the patient's lower GI bleed Results discussed with general surgeon, Dr. Viveros. He request patient to be admitted under hospitalist service and consult him. Case was discussed with hospitalist, Dr. Lynch. He is excepted the patient for admission. Departure - Departure Time of Disposition: 14:00 Disposition: Admitted As Inpatient 64 Condition: Good Clinical Impression: Lower GI bleed, SCIWORA (spinal cord injury without radiographic abnormality) - Discharge Information Sepsis Event Note (ED) - Evaluation Sepsis Screening Result: No Definite Risk - Focused Exam Vital Signs: Vital Signs Temp Pulse Resp BP Pulse Ox 01/10/21 10:33 97.8 F 80 16 122/78 92 L - My Orders Last 24 Hours: My Active Orders 01/10/21 10:39 Sodium Chloride 0.9% [Saline Flush] 10 ml FLUSH ASDIRECTED PRN Saline Lock Insert [OM.PC] Routine 01/10/21 12:32 Sodium Chloride 0.9% [Saline Flush] 10 ml FLUSH ONETIME PRN - Assessment/Plan Last 24 Hours: My Active Orders 01/10/21 10:39 Sodium Chloride 0.9% [Saline Flush] 10 ml FLUSH ASDIRECTED PRN Saline Lock Insert [OM.PC] Routine 01/10/21 12:32 Sodium Chloride 0.9% [Saline Flush] 10 ml FLUSH ONETIME PRN
[2021-01-10] MEDS ORDERED: Iopamidol 612 MG/ML 100 ML Bottle IVPUSH ONE (12:32)
[2021-01-10] MEDS ORDERED: Iopamidol 612 MG/ML 50 ML SDV IVPUSH ONE (12:32)
--- NOTE | 2021-01-10 13:25 | CT ---
CT abdomen and pelvis Technique: Multiple axial sections were obtained from above the dome of the diaphragm inferiorly through the pubic symphysis. Intravenous contrast was utilized. No oral contrast has been given. Comparison: No prior abdomen or pelvis imaging is available. Findings: Patchy densities are noted within both lung bases which are worse on the right side. Findings most likely represent bilateral pneumonia. Liver contains no focal abnormality. Gallbladder contains no calcified gallstones. Spleen size is normal. Adrenal glands show no nodule. Pancreas shows no abnormality. Kidneys shows bilateral contrast enhancement. Small low density finding is seen off the upper left kidney. This is most likely due to a small cyst. Kidneys otherwise appear within normal limits. No ureteral dilatation or ureteral calculus is seen. Abdominal aorta shows atherosclerotic change. Distal aorta is slightly aneurysmal with AP dimension of 2.7 cm. Atherosclerotic change is noted within the abdominal aorta which continues into the iliac vessels. No retroperitoneal adenopathy or mesenteric abnormalities are seen. Small fat-containing umbilical hernia is noted. Appendix is not visualized with certainty. No pelvic mass or adenopathy is seen. Delayed images shows no contrast excretion into the ureters or bladder. Bone window settings were reviewed which show mild diffuse degenerative change throughout the spine. T12 vertebral body shows a small lucent lesion measuring 1.0 cm which is stable from CT lumbar spine dated 04/29/15. No other lucent areas are seen within the spine. Impression: 1. Small aneurysmal dilatation of the distal abdominal aorta at 2.7 cm. 2. Minimal cyst within the upper left kidney. 3. 1.0 cm lucent lesion within T12 which is stable and most likely incidental as no other lucent areas are seen within the osseous system. 4. Patchy areas of consolidation are seen within both lung bases most likely representing mild bibasilar pneumonia. Please correlate with patient's symptoms. 5. Nothing is appreciated to indicate an etiology for the patient's lower GI bleed. Diagnostic code #3
[2021-01-10] MEDS ORDERED: Temazepam 7.5 MG Cap PO PRN (14:11)
[2021-01-10] MEDS ORDERED: Ondansetron 4 MG/2 ML SDV IV PRN (14:11)
[2021-01-10] MEDS ORDERED: HYDROmorphone 0.5 MG/0.5 ML Syringe IVPUSH PRN (14:11)
--- NOTE | 2021-01-10 14:28 | PCM.HP.2 ---
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 Patient states he was discharged from [facility] located in [place] on approximately 5 days ago. He did have a 3-1/2-week stay in the hospital and acute care facility for COPD exacerbation. Patient is currently on 3 L per nasal cannula and states th at he has been on oxygen since being hospitalized. He states prior to this however he was not oxygen dependent. He does have a history of smoking, he states 4 to 5 cigarettes daily, for 20+ years. He states he stopped smoking about 1 month ago. Initially upon discharge from [facility], the patient was constipated. The reported that the day that they were discharged to home she did notice small amounts of blood in his stool however she states it has been progressively increasing since that time up until today when it became bright red. Patient denies any abdominal discomfort however he states his abdomen feels tight. He denies any urinary symptoms. He denies any recent fever, chills, nausea or vomiting or any other respiratory symptoms. He does not have a history of GI bleed. He denies alcohol use. He is not currently taking any anticoagulation or NSAIDs. Of note, the patient does have a stage II pressure ulcer noted to his coccyx which he states he developed while in the [facility]. Patient was hemodynamically stable while in the emergency department. He is not tachycardic or hypotensive. Hematology reveals a WBC of 5.54, hemoglobin 16.5, hematocrit 50.4, platelet count 97,000, pro time 9.9, INR less than 0.93, sodium 142, potassium 5.1, carbon dioxide 37, anion gap 5.1, BUN 15, creatinine 1.0, glucose 115, total bilirubin 1.1, AST 13, ALT 40, alk phos 69 CT scan was completed while in the emergency department. Radiologist impression CT scan of the abdomen and pelvis: 1. 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 2. Minimal cyst within the left upper kidney. 3. 1.0 cm lucent lesion within T12 which is stable and most likely incidental as no other lucent areas are seen within the osseous system. 4. Patchy areas of consolidation are seen within both lung bases most likely representing mild bibasilar pneumonia. Please correlate with the patient's symptoms. 5. Nothing is appreciated to indicate an etiology for the lower GI bleed. Results were discussed with the general surgeon, Dr. Viveros. He requested the patient be admitted under the hospitalist services and to consult him. Onset of Symptoms: Reports: Gradual - Related Data Allergies/Adverse Reactions: Allergies Allergy/AdvReac Type Severity Reaction Status Date / Time No Known Allergies Allergy Verified 01/10/21 16:20 Home Medications: Home Meds Baclofen 10 mg PO QID 01/16/16 [History] Famotidine [Pepcid] 40 mg PO DAILY 01/16/16 [History] Tiotropium [Spiriva HandiHaler] 1 puff INH DAILY 01/16/16 [History] Acetaminophen [Tylenol Extra Strength] 500 mg PO Q4H PRN 11/20/17 [History] Albuterol [Proventil HFA] 1 puff INH Q6H PRN 11/20/17 [History] Nitroglycerin [Nitro-Bid 2%] 1 inch TOP ASDIRECTED PRN 11/20/17 [History] bisacodyL [Dulcolax] 10 mg RC DAILY PRN 11/20/17 [History] Baclofen 10 mg PO BEDTIME 01/10/21 [History] Diclofenac Sodium [Voltaren] 1 applic TOP TID 01/10/21 [History] Fluticasone Propionate [Allergy Relief] 1 puff NASBOTH BID 01/10/21 [History] Hydrocodone/Acetaminophen [HYDROcodone-Acetaminophen 5-325 MG] 1 tab PO BEDTIME PRN 01/10/21 [History] Lidocaine 5% [Lidoderm 5%] 1 patch TOP DAILY 01/10/21 [History] Menthol [Biofreeze] 1 applic TOP Q2H PRN 01/10/21 [History] Menthol/Zinc Oxide [Calmoseptine] 1 applic TOP Q1H PRN 01/10/21 [History] Simethicone 80 mg PO Q6H PRN 01/10/21 [History] Tamsulosin [Flomax] 0.8 mg PO BEDTIME 01/10/21 [History] guaiFENesin [Mucinex] 1,200 mg PO BID 01/10/21 [History] predniSONE [Prednisone] 40 mg PO DAILY 01/10/21 [History] Past Medical History Respiratory History: Reports: COPD, SOB, Other (See Below) Other Respiratory History: decreased oxygen saturations, home oxygen 3L [place] Gastrointestinal History: Reports: Chronic Constipation, GERD Genitourinary History: Reports: Retention, Urinary, Urinary Incontinence, Other (See Below) Other Genitourinary History: frequency Musculoskeletal History: Reports: Back Pain, Chronic, Fracture, Osteoarthritis Other Musculoskeletal History: 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 - History Comment History Comment: Should rarely sees a physician and therefore not sure if he has any health related problems. Social & Family History - Family History Family Medical History: No Pertinent Family History - Tobacco Use Tobacco Use Status *Q: Former Tobacco User Used Tobacco, but Quit: Yes Month/Year Tobacco Last Used: 1 month ago - Caffeine Use Caffeine Use: Reports: Coffee - Recreational Drug Use Recreational Drug Use: No H&P Review of Systems - Review of Systems: Review Of Systems: Comprehensive ROS is negative, except as noted in HPI. Exam - Exam Exam: See Below - Vital Signs Vital Signs: Last Vital Signs Temp 97.8 F 01/10/21 10:33 Pulse 80 01/10/21 10:33 Resp 16 01/10/21 10:33 BP 122/78 01/10/21 10:33 Pulse Ox 92 L 01/10/21 10:33 - Exam Quality Assessment: Supplemental Oxygen (3 L per nasal cannula). No: DVT Prophylaxis (Contraindicated due to GI bleed) General: Alert, Oriented, Cooperative, Mild Distress HEENT: Hearing Intact, Mucosa Moist & [place], Pupils Equal Neck: Supple, Trachea Midline Lungs: Crackles (Bilateral bases) Cardiovascular: Regular Rate, Regular Rhythm GI/Abdominal Exam: Normal Bowel Sounds, Soft, Non-Tender, No Distention (Male) Exam: Deferred Rectal (Males) Exam: Deferred Back Exam: Normal Inspection Extremities: Limited Range of Motion (Due to spinal injury however, patient states he is able to ambulate with the use of a cane) Peripheral Pulses: 2+: Radial (L), Radial (R) Skin: Warm, Dry, Decubitis (Coccyx) Neuro Extensive - Mental Status: Alert, Oriented x3, Normal Mood/Affect, Normal Cognition, Memory Intact Psychiatric: Alert, Normal Affect, Normal Mood - Patient Data Lab Results Last 24 hrs: Laboratory Results - last 24 hr 01/10/21 01/10/21 01/10/21 Range/Units 11:01 11:01 11:01 WBC 5.54 (4.23-9.07) K/mm3 RBC 5.03 (4.63-6.08) M/mm3 Hgb 16.5 (13.7-17.5) gm/dl Hct 50.4 (40.1-51.0) % MCV 100.2 H D (79.0-92.2) fl MCH 32.8 H (25.7-32.2) pg MCHC 32.7 (32.2-35.5) g/dl RDW Std Deviation 52.0 H (35.1-43.9) fL Plt Count 97 L (163-337) K/mm3 MPV 10.7 (9.4-12.3) fl Neutrophils % (Manual) 65 H (40-60) % Band Neutrophils % 0 (0-10) % Lymphocytes % (Manual) 26 (20-40) % Atypical Lymphs % 0 % Monocytes % (Manual) 7 (2-10) % Eosinophils % (Manual) 2 (0.8-7.0) % Basophils % (Manual) 0 L (0.2-1.2) Platelet Estimate Adequate RBC Morph Comment Normal PT 9.9 (9.7-12.0) SECONDS INR < 0.93 Sodium 142 (136-145) mEq/L Potassium 5.1 (3.5-5.1) mEq/L Chloride 105 (98-107) mEq/L Carbon Dioxide 37 H D (21-32) mEq/L Anion Gap 5.1 (5-15) BUN 15 (7-18) mg/dL Creatinine 1.0 (0.7-1.3) mg/dL Est Cr Clr Drug Dosing TNP Estimated GFR (MDRD) > 60 (>60) mL/min BUN/Creatinine Ratio 15.0 (14-18) Glucose 115 H (70-99) mg/dL Calcium 8.7 (8.5-10.1) mg/dL Total Bilirubin 1.1 H (0.2-1.0) mg/dL AST 13 L (15-37) U/L ALT 40 (16-63) U/L Alkaline Phosphatase 69 (46-116) U/L Total Protein 6.2 L (6.4-8.2) g/dl Albumin 2.6 L (3.4-5.0) g/dl Globulin 3.6 gm/dL Albumin/Globulin Ratio 0.7 L (1-2) Result Diagrams: 01/10/21 11:01 01/10/21 11:01 Sepsis Event Note - Evaluation Sepsis Screening Result: No Definite Risk - Focused Exam Vital Signs: Vital Signs Temp Pulse Resp BP Pulse Ox 01/10/21 10:33 97.8 F 80 16 122/78 92 L *Q Meaningful Use (ADM) - VTE *Q VTE Anticoagulation Contraindications: Medical/Procedure Contrai - Problem List (1) History of COPD SNOMED Code(s): 525046021 ICD Code: Z87.09 - PERSONAL HISTORY OF OTHER DISEASES OF THE RESPIRATORY SYSTEM Status: Chronic Priority: Medium Current Visit: Yes (2) Lower GI bleed SNOMED Code(s): 33322514 ICD Code: K92.2 - GASTROINTESTINAL HEMORRHAGE, UNSPECIFIED Status: Acute Priority: High Current Visit: Yes (3) History of spinal cord injury SNOMED Code(s): 89195797437145 ICD Code: Z87.828 - PERSONAL HISTORY OF OTH (HEALED) PHYSICAL INJURY AND TRAUMA Status: Chronic Priority: Low Current Visit: Yes (4) Decubital ulcer SNOMED Code(s): 963596899 ICD Code: L89.90 - PRESSURE ULCER OF UNSPECIFIED SITE, UNSPECIFIED STAGE Status: Acute Priority: High Current Visit: Yes Qualifiers: Pressure injury location: sacral region Pressure injury stage: unspecified pressure injury stage Qualified Code(s): L89.159 - Pressure ulcer of sacral region, unspecified stage Problem List Initiated/Reviewed/Updated: Yes Orders Last 24hrs: Active Orders 24 hr Category Date Time Status Admission Status [Patient Status] [ADT] Routine ADT 01/10/21 14:08 Ordered Patient Status [ADT] Routine ADT 01/10/21 14:11 Active Cardiac Monitoring [RC] . DIRECTED Care 01/10/21 14:08 Ordered Height and Weight [RC] DAILY Care 01/10/21 14:11 Ordered Intake and Output [RC] QSHIFT Care 01/10/21 14:11 Ordered Notify Provider Consults [RC] ASDIRECTED Care 01/10/21 14:16 Ordered Oxygen Therapy [RC] PRN Care 01/10/21 14:11 Ordered Up With Assistance [RC] ASDIRECTED Care 01/10/21 14:11 Ordered VTE/DVT Education [RC] PER UNIT ROUTINE Care 01/10/21 14:11 Ordered Vital Signs [RC] Q4H Care 01/10/21 14:11 Ordered Consult to Case Management/Chair Lift Operator [CONS] Cons 01/10/21 14:11 Ordered Routine Consult to Perioperative Assistant [CONS] Routine Cons 01/10/21 14:11 Ordered Consult to Physician [CONS] Routine Cons 01/10/21 14:11 Ordered OT Evaluation and Treatment [CONS] Routine Cons 01/10/21 14:11 Ordered PT Evaluation and Treatment [CONS] Routine Cons 01/10/21 14:11 Ordered Respiratory Care Assess and Treatment [CONS] Routine Cons 01/10/21 14:11 Ordered Nothing per Oral Now Diet [DIET] Diet 01/10/21 Dinner Ordered CBC WITH AUTO DIFF [HEME] DAILY Lab 01/11/21 05:11 Ordered CBC WITH AUTO DIFF [HEME] DAILY Lab 01/12/21 05:11 Ordered CBC WITH AUTO DIFF [HEME] DAILY Lab 01/13/21 05:11 Ordered CBC WITH AUTO DIFF [HEME] DAILY Lab 01/14/21 05:11 Ordered CBC WITH AUTO DIFF [HEME] DAILY Lab 01/15/21 05:11 Ordered COMPREHENSIVE METABOLIC PN,CMP [CHEM] DAILY Lab 01/11/21 05:11 Ordered COMPREHENSIVE METABOLIC PN,CMP [CHEM] DAILY Lab 01/12/21 05:11 Ordered COMPREHENSIVE METABOLIC PN,CMP [CHEM] DAILY Lab 01/13/21 05:11 Ordered COMPREHENSIVE METABOLIC PN,CMP [CHEM] DAILY Lab 01/14/21 05:11 Ordered COMPREHENSIVE METABOLIC PN,CMP [CHEM] DAILY Lab 01/15/21 05:11 Ordered CORONAVIRUS COVID-19 BEN [MOLEC] Stat Lab 01/10/21 13:46 Received MAGNESIUM [CHEM] DAILY Lab 01/11/21 05:11 Ordered MAGNESIUM [CHEM] DAILY Lab 01/12/21 05:11 Ordered MAGNESIUM [CHEM] DAILY Lab 01/13/21 05:11 Ordered MAGNESIUM [CHEM] DAILY Lab 01/14/21 05:11 Ordered MAGNESIUM [CHEM] DAILY Lab 01/15/21 05:11 Ordered Acetaminophen [TylenoL] Med 01/10/21 14:11 Ordered 650 mg PO Q4H PRN Acetaminophen/HYDROcodone [[place] 325-5 MG] Med 01/10/21 14:11 Ordered 1 tab PO Q4H PRN HYDROmorphone [Dilaudid] Med 01/10/21 14:11 Ordered 0.25 mg IVPUSH Q2H PRN Ondansetron [Zofran] Med 01/10/21 14:11 Ordered 4 mg IV Q4H PRN Sodium Chloride 0.9% [Saline Flush] Med 01/10/21 10:39 Active 10 ml FLUSH ASDIRECTED PRN Sodium Chloride 0.9% [Saline Flush] Med 01/10/21 12:32 Active 10 ml FLUSH ONETIME PRN Temazepam [Restoril] Med 01/10/21 14:11 Ordered 7.5 mg PO BEDTIME PRN Anticoagulation Contraindications VTE [AST] Per Unit Oth 01/10/21 14:11 Ordered Routine Saline Lock Insert [OM.PC] Routine Oth 01/10/21 10:39 Ordered Medication Orders Acetaminophen (Acetaminophen 325 Mg Tab) 650 mg PO Q4H PRN PRN Reason: Pain (Mild 1-3)/fever Hydrocodone Bitart/Acetaminophen (Acetaminophen/Hydrocodone 325-5 Mg Tab) 1 tab PO Q4H PRN PRN Reason: Pain (moderate 4-6) Hydromorphone HCl (Hydromorphone 0.5 Mg/0.5 Ml Syringe) 0.25 mg IVPUSH Q2H PRN PRN Reason: Pain (severe 7-10) Ondansetron HCl (Ondansetron 4 Mg/2 Ml Sdv) 4 mg IV Q4H PRN PRN Reason: Nausea/Vomiting Sodium Chloride (Sodium Chloride 0.9% 10 Ml Syringe) 10 ml FLUSH ASDIRECTED PRN PRN Reason: Keep Vein Open Last Admin: 01/10/21 10:49 Dose: 10 ml Documented by: JEANNINE Sodium Chloride (Sodium Chloride 0.9% 10 Ml Syringe) 10 ml FLUSH ONETIME PRN PRN Reason: IV FLUSH Last Admin: 01/10/21 12:58 Dose: 10 ml Documented by: FORD Temazepam (Temazepam 7.5 Mg Cap) 7.5 mg PO BEDTIME PRN PRN Reason: Sleep Assessment/Plan Comment:: 65-year-old male who presents with 5-day history of rectal bleeding which has progressively worsened. And is not taking any anticoagulants or NSAIDs. P atient does not drink alcohol. Denies any abdominal pain. Hemoglobin and hematocrit are stable at this time. Patient is not hypotensive or tachycardic. CT scan was essentially unremarkable. PLAN: History of COPD * O2 to keep sats between 88-92% * Albuterol nebs prn * RT to eval and treat Lower GI bleed * H&H Q4h * NPO * Consult general surgery * VS q4h; monitor for hypotension and tachycardia * Saline Lock History of spinal cord injury; Decubital ulcer * Reposition every 2 hours * Nursing staff to apply Mepilex to coccyx * PT/OT to eval and treat for strengthening as patient states he is still ambulatory Primary physician: pt needs DVT prophylaxis: contraindicated at this time due to GIB GI: Pepcid Code Status: will clarify Disposition: director of women's services and case management to assist with discharge pl anning. Patient will likely be here 2 to 3 days. - Mortality Measure Prognosis:: Good <Yobany Lynch - Last Filed: 01/10/21 17:28> H&P History of Present Illness - General Admit Problem/Dx: Admission Diagnosis/Problem Admission Diagnosis/Problem GI bleed not requiring more than 4 units of blood in 24 hours, ICU, or surgery Exam - Vital Signs Vital Signs: Last Vital Signs Temp 36.6 C 01/10/21 10:33 Pulse 80 01/10/21 10:33 Resp 16 01/10/21 10:33 BP 122/78 01/10/21 10:33 Pulse Ox 92 L 01/10/21 10:33 - Patient Data Lab Results Last 24 hrs: Laboratory Results - last 24 hr 01/10/21 01/10/21 01/10/21 Range/Units 11:01 11:01 11:01 WBC 5.54 (4.23-9.07) K/mm3 RBC 5.03 (4.63-6.08) M/mm3 Hgb 16.5 (13.7-17.5) gm/dl Hct 50.4 (40.1-51.0) % MCV 100.2 H D (79.0-92.2) fl MCH 32.8 H (25.7-32.2) pg MCHC 32.7 (32.2-35.5) g/dl RDW Std Deviation 52.0 H (35.1-43.9) fL Plt Count 97 L (163-337) K/mm3 MPV 10.7 (9.4-12.3) fl Neutrophils % (Manual) 65 H (40-60) % Band Neutrophils % 0 (0-10) % Lymphocytes % (Manual) 26 (20-40) % Atypical Lymphs % 0 % Monocytes % (Manual) 7 (2-10) % Eosinophils % (Manual) 2 (0.8-7.0) % Basophils % (Manual) 0 L (0.2-1.2) Platelet Estimate Adequate RBC Morph Comment Normal PT 9.9 (9.7-12.0) SECONDS INR < 0.93 Sodium 142 (136-145) mEq/L Potassium 5.1 (3.5-5.1) mEq/L Chloride 105 (98-107) mEq/L Carbon Dioxide 37 H D (21-32) mEq/L Anion Gap 5.1 (5-15) BUN 15 (7-18) mg/dL Creatinine 1.0 (0.7-1.3) mg/dL Est Cr Clr Drug Dosing TNP Estimated GFR (MDRD) > 60 (>60) mL/min BUN/Creatinine Ratio 15.0 (14-18) Glucose 115 H (70-99) mg/dL Calcium 8.7 (8.5-10.1) mg/dL Total Bilirubin 1.1 H (0.2-1.0) mg/dL AST 13 L (15-37) U/L ALT 40 (16-63) U/L Alkaline Phosphatase 69 (46-116) U/L Total Protein 6.2 L (6.4-8.2) g/dl Albumin 2.6 L (3.4-5.0) g/dl Globulin 3.6 gm/dL Albumin/Globulin Ratio 0.7 L (1-2) SARS-CoV-2 RNA (BEN) (NEGATIVE) 01/10/21 01/10/21 Range/Units 13:46 15:52 WBC (4.23-9.07) K/mm3 RBC (4.63-6.08) M/mm3 Hgb 15.9 (13.7-17.5) gm/dl Hct 48.7 (40.1-51.0) % MCV (79.0-92.2) fl MCH (25.7-32.2) pg MCHC (32.2-35.5) g/dl RDW Std Deviation (35.1-43.9) fL Plt Count (163-337) K/mm3 MPV (9.4-12.3) fl Neutrophils % (Manual) (40-60) % Band Neutrophils % (0-10) % Lymphocytes % (Manual) (20-40) % Atypical Lymphs % % Monocytes % (Manual) (2-10) % Eosinophils % (Manual) (0.8-7.0) % Basophils % (Manual) (0.2-1.2) Platelet Estimate RBC Morph Comment PT (9.7-12.0) SECONDS INR Sodium (136-145) mEq/L Potassium (3.5-5.1) mEq/L Chloride (98-107) mEq/L Carbon Dioxide (21-32) mEq/L Anion Gap (5-15) BUN (7-18) mg/dL Creatinine (0.7-1.3) mg/dL Est Cr Clr Drug Dosing Estimated GFR (MDRD) (>60) mL/min BUN/Creatinine Ratio (14-18) Glucose (70-99) mg/dL Calcium (8.5-10.1) mg/dL Total Bilirubin (0.2-1.0) mg/dL AST (15-37) U/L ALT (16-63) U/L Alkaline Phosphatase (46-116) U/L Total Protein (6.4-8.2) g/dl Albumin (3.4-5.0) g/dl Globulin gm/dL Albumin/Globulin Ratio (1-2) SARS-CoV-2 RNA (BEN) Positive H (NEGATIVE) Result Diagrams: 01/10/21 15:52 01/10/21 11:01 Sepsis Event Note - Focused Exam Vital Signs: Vital Signs Temp Pulse Resp BP Pulse Ox 01/10/21 10:33 36.6 C 80 16 122/78 92 L Orders Last 24hrs: Active Orders 24 hr Category Date Time Status Admission Status [Patient Status] [ADT] Routine ADT 01/10/21 14:08 Active Patient Status [ADT] Routine ADT 01/10/21 14:11 Active Cardiac Monitoring [RC] . DIRECTED Care 01/10/21 14:08 Active Intake and Output [RC] 04,16 Care 01/10/21 14:11 Active Notify Provider Consults [RC] ASDIRECTED Care 01/10/21 14:16 Active Oxygen Therapy [RC] PRN Care 01/10/21 14:11 Active Oxygen Therapy [RC] PRN Care 01/10/21 17:24 Ordered RT Aerosol Therapy [RC] ASDIRECTED Care 01/10/21 17:25 Ordered Up With Assistance [RC] ASDIRECTED Care 01/10/21 14:11 Active VTE/DVT Education [RC] PER UNIT ROUTINE Care 01/10/21 14:11 Active VTE/DVT Education [RC] PER UNIT ROUTINE Care 01/10/21 17:24 Ordered Vital Signs [RC] Q4H Care 01/10/21 17:24 Ordered Vital Signs [RC] Q4HR Care 01/10/21 14:11 Active Consult to Case Management/Chair Lift Operator [CONS] Cons 01/10/21 14:11 Active Routine Consult to Perioperative Assistant [CONS] Routine Cons 01/10/21 14:11 Active Consult to Physician [CONS] Routine Cons 01/10/21 14:11 Active OT Evaluation and Treatment [CONS] Routine Cons 01/10/21 14:11 Active PT Evaluation and Treatment [CONS] Routine Cons 01/10/21 14:11 Active Respiratory Care Assess and Treatment [CONS] Routine Cons 01/10/21 14:11 Active Nothing per Oral Now Diet [DIET] Diet 01/10/21 Dinner Active CBC WITH AUTO DIFF [HEME] DAILY Lab 01/11/21 05:11 Ordered CBC WITH AUTO DIFF [HEME] DAILY Lab 01/12/21 05:11 Ordered CBC WITH AUTO DIFF [HEME] DAILY Lab 01/13/21 05:11 Ordered CBC WITH AUTO DIFF [HEME] DAILY Lab 01/14/21 05:11 Ordered CBC WITH AUTO DIFF [HEME] DAILY Lab 01/15/21 05:11 Ordered COMPREHENSIVE METABOLIC PN,CMP [CHEM] DAILY Lab 01/11/21 05:11 Ordered COMPREHENSIVE METABOLIC PN,CMP [CHEM] DAILY Lab 01/12/21 05:11 Ordered COMPREHENSIVE METABOLIC PN,CMP [CHEM] DAILY Lab 01/13/21 05:11 Ordered COMPREHENSIVE METABOLIC PN,CMP [CHEM] DAILY Lab 01/14/21 05:11 Ordered COMPREHENSIVE METABOLIC PN,CMP [CHEM] DAILY Lab 01/15/21 05:11 Ordered HEMOGLOBIN/HEMATOCRIT,HH [HEME] Q4H Lab 01/10/21 20:00 Ordered HEMOGLOBIN/HEMATOCRIT,HH [HEME] Q4H Lab 01/11/21 00:00 Ordered HEMOGLOBIN/HEMATOCRIT,HH [HEME] Q4H Lab 01/11/21 04:00 Ordered MAGNESIUM [CHEM] DAILY Lab 01/11/21 05:11 Ordered MAGNESIUM [CHEM] DAILY Lab 01/12/21 05:11 Ordered MAGNESIUM [CHEM] DAILY Lab 01/13/21 05:11 Ordered MAGNESIUM [CHEM] DAILY Lab 01/14/21 05:11 Ordered MAGNESIUM [CHEM] DAILY Lab 01/15/21 05:11 Ordered Acetaminophen [TylenoL] Med 01/10/21 14:11 Active 650 mg PO Q4H PRN Acetaminophen/HYDROcodone [[place] 325-5 MG] Med 01/10/21 14:11 Active 1 tab PO Q4H PRN Albuterol/Ipratropium [DuoNeb 3.0-0.5 MG/3 ML] Med 01/10/21 17:24 Ordered 3 ml NEB Q4H PRN Famotidine [Pepcid] Med 01/10/21 21:00 Active 20 mg IVPUSH BEDTIME HYDROmorphone [Dilaudid] Med 01/10/21 14:11 Active 0.25 mg IVPUSH Q2H PRN Ondansetron [Zofran] Med 01/10/21 14:11 Active 4 mg IV Q4H PRN Remdesivir 200 mg Med 01/10/21 17:25 Ordered Sodium Chloride 0.9% [Normal Saline] 250 ml IV ONETIME Sodium Chloride 0.9% [Normal Saline] 1,000 ml Med 01/10/21 15:00 Active IV ASDIRECTED Sodium Chloride 0.9% [Saline Flush] Med 01/10/21 10:39 Active 10 ml FLUSH ASDIRECTED PRN Sodium Chloride 0.9% [Saline Flush] Med 01/10/21 12:32 Active 10 ml FLUSH ONETIME PRN Temazepam [Restoril] Med 01/10/21 14:11 Active 7.5 mg PO BEDTIME PRN dexAMETHasone Med 01/11/21 09:00 Ordered 6 mg PO DAILY Anticoagulation Contraindications VTE [AST] Per Unit Oth 01/10/21 14:11 Ordered Routine Saline Lock Insert [OM.PC] Routine Oth 01/10/21 10:39 Ordered Resuscitation Status Routine Resus Stat 01/10/21 16:05 Ordered Medication Orders Acetaminophen (Acetaminophen 325 Mg Tab) 650 mg PO Q4H PRN PRN Reason: Pain (Mild 1-3)/fever Hydrocodone Bitart/Acetaminophen (Acetaminophen/Hydrocodone 325-5 Mg Tab) 1 tab PO Q4H PRN PRN Reason: Pain (moderate 4-6) Albuterol/Ipratropium (Albuterol/Ipratropium 3.0-0.5 Mg/3 Ml Neb Soln) 3 ml NEB Q4H PRN PRN Reason: Shortness Of Breath/wheezing Famotidine (Famotidine 20 Mg/2 Ml Sdv) 20 mg IVPUSH BEDTIME RACHELE Hydromorphone HCl (Hydromorphone 0.5 Mg/0.5 Ml Syringe) 0.25 mg IVPUSH Q2H PRN PRN Reason: Pain (severe 7-10) Sodium Chloride (Normal Saline) 1,000 mls @ 100 mls/hr IV ASDIRECTED RACHELE Last Admin: 01/10/21 16:26 Dose: 100 mls/hr Documented by: DUKAEMI Remdesivir 200 mg/ Sodium (Chloride) 250 mls @ 250 mls/hr IV ONETIME ONE Stop: 01/10/21 17:26 Ondansetron HCl (Ondansetron 4 Mg/2 Ml Sdv) 4 mg IV Q4H PRN PRN Reason: Nausea/Vomiting Sodium Chloride (Sodium Chloride 0.9% 10 Ml Syringe) 10 ml FLUSH ASDIRECTED PRN PRN Reason: Keep Vein Open Last Admin: 01/10/21 10:49 Dose: 10 ml Documented by: JEANNINE Sodium Chloride (Sodium Chloride 0.9% 10 Ml Syringe) 10 ml FLUSH ONETIME PRN PRN Reason: IV FLUSH Last Admin: 01/10/21 12:58 Dose: 10 ml Documented by: FORD Temazepam (Temazepam 7.5 Mg Cap) 7.5 mg PO BEDTIME PRN PRN Reason: Sleep - Free Text/Narrative Note: I have seen and examined the patient independently of DHEERAJ Eng, and I have discussed the case with her. I have reviewed and agree with the plan of care as outlined by her. Please see orders. Of note, the patient was diagnosed with COVID-19. The patient is on 3 L of oxygen and the result of this the patient was placed on remdesivir starting initial dose of 200 mg IV followed by 100 mg IV daily for the next 5 days. Patient also has been started on dexamethasone 6 mg p.o. daily and the patient has expressed some misgivings about the use of the steroids. I have discussed this with the consulting surgeon.
[2021-01-10] MEDS: Sodium Chloride 0.9% 1,000 ML IV SCH (16:26)
[2021-01-10] MEDS ORDERED: Albuterol/Ipratropium 3.0-0.5 MG/3 ML Neb Soln NEB PRN (17:24)
[2021-01-10] MEDS ORDERED: REMDESIVIR 200 MG in Sodium Chloride 0.9% 250 ML IV ONE (17:25)
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
[2021-01-10] MEDS ORDERED: FLU Vacc QS2021(65UP)/MF59C/PF 60 MCG/0.5 ML Syringe IM ONE (20:00)
[2021-01-10] MEDS ORDERED: Famotidine 20 MG/2 ML SDV IVPUSH SCH (21:00)
[2021-01-10] MEDS: Acetaminophen/HYDROcodone 325-5 MG Tab PO PRN (21:31)
[2021-01-11] MEDS ORDERED: Baclofen 10 MG Tab PO ONE (00:49)
[2021-01-11] MEDS: Sodium Chloride 0.9% 1,000 ML IV SCH (04:29)
[2021-01-11] MEDS: Dexamethasone 4 MG Tab PO SCH (08:19)
[2021-01-11] MEDS: Acetaminophen/HYDROcodone 325-5 MG Tab PO PRN ×2 (08:20→15:06)
[2021-01-11] MEDS ORDERED: Simethicone 80 MG Tab.Chew PO PRN (09:14)
[2021-01-11] MEDS: Acetaminophen 325 MG Tab PO PRN (12:11)
[2021-01-11] MEDS: Baclofen 10 MG Tab PO SCH ×4 (12:11→21:20)
--- NOTE | 2021-01-11 14:38 | PCM.PN ---
<RicardoJason M - Last Filed: 01/11/21 14:32> - General Info Date of Service: 01/11/21 Admission Dx/Problem (Free Text): Admission Diagnosis/Problem Admission Diagnosis/Problem GI bleed not requiring more than 4 units of blood in 24 hours, ICU, or surgery Subjective Update: Santi was seen on rounds this morning and he admits to not being happy. He states he is frustrated with his Covid diagnosis. He has had no bowel movements or rectal bleeding noted today. I did speak with Dr. Jameson, general surgeon, and he states that we can allow the patient to eat as he feels that the rectal bleeding has stopped. Functional Status: Reports: Pain Controlled, Urinating (Not), Incentive Spirometry - Review of Systems General: Reports: Weakness, Fatigue HEENT: Reports: No Symptoms Pulmonary: Reports: Cough. Denies: Sputum Cardiovascular: Reports: No Symptoms Gastrointestinal: Reports: No Symptoms Genitourinary: Reports: Incontinence Musculoskeletal: Reports: No Symptoms Skin: Reports: No Symptoms Neurological: Reports: No Symptoms Psychiatric: Reports: No Symptoms - Patient Data Vitals - Most Recent: Last Vital Signs Temp 98.4 F 01/11/21 11:36 Pulse 83 01/11/21 11:36 Resp 24 H 01/11/21 11:36 BP 127/74 01/11/21 11:36 Pulse Ox 87 L 01/11/21 11:36 Weight - Most Recent: 90.537 kg I&O - Last 24 Hours: Intake & Output 01/10/21 01/11/21 01/11/21 22:59 06:59 14:59 Intake Total 1008 Balance 1008 Lab Results Last 24 Hours: Laboratory Results - last 24 hr 01/10/21 01/10/21 01/10/21 Range/Units 13:46 15:52 19:56 WBC (4.23-9.07) K/mm3 RBC (4.63-6.08) M/mm3 Hgb 15.9 15.7 (13.7-17.5) gm/dl Hct 48.7 48.7 (40.1-51.0) % MCV (79.0-92.2) fl MCH (25.7-32.2) pg MCHC (32.2-35.5) g/dl RDW Std Deviation (35.1-43.9) fL Plt Count (163-337) K/mm3 MPV (9.4-12.3) fl Neut % (Auto) (34.0-67.9) % Lymph % (Auto) (21.8-53.1) % Orange % (Auto) (5.3-12.2) % Eos % (Auto) (0.8-7.0) Baso % (Auto) (0.1-1.2) % Neut # (Auto) (1.78-5.38) K/mm3 Lymph # (Auto) (1.32-3.57) K/mm3 Orange # (Auto) (0.30-0.82) K/mm3 Eos # (Auto) (0.04-0.54) K/mm3 Baso # (Auto) (0.01-0.08) K/mm3 Manual Slide Review Sodium (136-145) mEq/L Potassium (3.5-5.1) mEq/L Chloride (98-107) mEq/L Carbon Dioxide (21-32) mEq/L Anion Gap (5-15) BUN (7-18) mg/dL Creatinine (0.7-1.3) mg/dL Est Cr Clr Drug Dosing mL/min Estimated GFR (MDRD) (>60) mL/min BUN/Creatinine Ratio (14-18) Glucose (70-99) mg/dL Calcium (8.5-10.1) mg/dL Magnesium (1.8-2.4) mg/dL Total Bilirubin (0.2-1.0) mg/dL AST (15-37) U/L ALT (16-63) U/L Alkaline Phosphatase (46-116) U/L Total Protein (6.4-8.2) g/dl Albumin (3.4-5.0) g/dl Globulin gm/dL Albumin/Globulin Ratio (1-2) SARS-CoV-2 RNA (BEN) Positive H (NEGATIVE) 01/11/21 01/11/21 01/11/21 Range/Units 00:18 04:07 04:07 WBC 4.10 L (4.23-9.07) K/mm3 RBC 5.10 (4.63-6.08) M/mm3 Hgb 16.0 16.3 (13.7-17.5) gm/dl Hct 50.0 51.1 H (40.1-51.0) % MCV 100.2 H (79.0-92.2) fl MCH 32.0 (25.7-32.2) pg MCHC 31.9 L (32.2-35.5) g/dl RDW Std Deviation 51.8 H (35.1-43.9) fL Plt Count 85 L (163-337) K/mm3 MPV 10.4 (9.4-12.3) fl Neut % (Auto) 81.3 H (34.0-67.9) % Lymph % (Auto) 10.2 L (21.8-53.1) % Orange % (Auto) 6.6 (5.3-12.2) % Eos % (Auto) 1.2 (0.8-7.0) Baso % (Auto) 0.2 (0.1-1.2) % Neut # (Auto) 3.33 (1.78-5.38) K/mm3 Lymph # (Auto) 0.42 L (1.32-3.57) K/mm3 Orange # (Auto) 0.27 L (0.30-0.82) K/mm3 Eos # (Auto) 0.05 (0.04-0.54) K/mm3 Baso # (Auto) 0.01 (0.01-0.08) K/mm3 Manual Slide Review Abnormal smear Sodium 139 (136-145) mEq/L Potassium 4.4 (3.5-5.1) mEq/L Chloride 103 (98-107) mEq/L Carbon Dioxide 32 (21-32) mEq/L Anion Gap 8.4 (5-15) BUN 10 (7-18) mg/dL Creatinine 0.7 (0.7-1.3) mg/dL Est Cr Clr Drug Dosing 102.40 mL/min Estimated GFR (MDRD) > 60 (>60) mL/min BUN/Creatinine Ratio 14.3 (14-18) Glucose 115 H (70-99) mg/dL Calcium 8.4 L (8.5-10.1) mg/dL Magnesium 1.8 (1.8-2.4) mg/dL Total Bilirubin 0.9 (0.2-1.0) mg/dL AST 14 L (15-37) U/L ALT 35 (16-63) U/L Alkaline Phosphatase 79 (46-116) U/L Total Protein 5.8 L (6.4-8.2) g/dl Albumin 2.4 L (3.4-5.0) g/dl Globulin 3.4 gm/dL Albumin/Globulin Ratio 0.7 L (1-2) SARS-CoV-2 RNA (BEN) (NEGATIVE) 01/11/21 Range/Units 14:08 WBC (4.23-9.07) K/mm3 RBC (4.63-6.08) M/mm3 Hgb 15.8 (13.7-17.5) gm/dl Hct 48.7 (40.1-51.0) % MCV (79.0-92.2) fl MCH (25.7-32.2) pg MCHC (32.2-35.5) g/dl RDW Std Deviation (35.1-43.9) fL Plt Count (163-337) K/mm3 MPV (9.4-12.3) fl Neut % (Auto) (34.0-67.9) % Lymph % (Auto) (21.8-53.1) % Orange % (Auto) (5.3-12.2) % Eos % (Auto) (0.8-7.0) Baso % (Auto) (0.1-1.2) % Neut # (Auto) (1.78-5.38) K/mm3 Lymph # (Auto) (1.32-3.57) K/mm3 Orange # (Auto) (0.30-0.82) K/mm3 Eos # (Auto) (0.04-0.54) K/mm3 Baso # (Auto) (0.01-0.08) K/mm3 Manual Slide Review Sodium (136-145) mEq/L Potassium (3.5-5.1) mEq/L Chloride (98-107) mEq/L Carbon Dioxide (21-32) mEq/L Anion Gap (5-15) BUN (7-18) mg/dL Creatinine (0.7-1.3) mg/dL Est Cr Clr Drug Dosing mL/min Estimated GFR (MDRD) (>60) mL/min BUN/Creatinine Ratio (14-18) Glucose (70-99) mg/dL Calcium (8.5-10.1) mg/dL Magnesium (1.8-2.4) mg/dL Total Bilirubin (0.2-1.0) mg/dL AST (15-37) U/L ALT (16-63) U/L Alkaline Phosphatase (46-116) U/L Total Protein (6.4-8.2) g/dl Albumin (3.4-5.0) g/dl Globulin gm/dL Albumin/Globulin Ratio (1-2) SARS-CoV-2 RNA (BEN) (NEGATIVE) Med Orders - Current: Current Medications Acetaminophen (Acetaminophen 325 Mg Tab) 650 mg PO Q4H PRN PRN Reason: Pain (Mild 1-3)/fever Last Admin: 01/11/21 12:11 Dose: 650 mg Documented by: Hydrocodone Bitart/Acetaminophen (Acetaminophen/Hydrocodone 325-5 Mg Tab) 1 tab PO Q4H PRN PRN Reason: Pain (moderate 4-6) Last Admin: 01/11/21 08:20 Dose: 1 tab Documented by: Albuterol/Ipratropium (Albuterol/Ipratropium 3.0-0.5 Mg/3 Ml Neb Soln) 3 ml NEB Q4H PRN PRN Reason: Shortness Of Breath/wheezing Baclofen (Baclofen 10 Mg Tab) 10 mg PO BEDTIME [facility] Baclofen (Baclofen 10 Mg Tab) 10 mg PO QID [facility] Last Admin: 01/11/21 12:11 Dose: 10 mg Documented by: Dexamethasone (Dexamethasone 4 Mg Tab) 6 mg PO DAILY [facility] Last Admin: 01/11/21 08:19 Dose: 6 mg Documented by: Famotidine (Famotidine 20 Mg/2 Ml Sdv) 20 mg IVPUSH BEDTIME [facility] Last Admin: 01/10/21 21:15 Dose: 20 mg Documented by: Fluticasone Propionate (Fluticasone Propionate Nasal Odell 16 Gm Bottle) 0 gm NASBOTH BID RACHELE Guaifenesin (Guaifenesin 600 Mg Tab.Er) 1,200 mg PO BID RACHELE Hydromorphone HCl (Hydromorphone 0.5 Mg/0.5 Ml Syringe) 0.25 mg IVPUSH Q2H PRN PRN Reason: Pain (severe 7-10) Remdesivir 100 mg/ Sodium (Chloride) 100 mls @ 100 mls/hr IV Q24H RACHELE Stop: 01/14/21 19:59 Lidocaine (Lidocaine 4% 1 Each Patch) 1 each TOP DAILY [facility] Miscellaneous Information (Remove Patch) 0 ea TRDERM Q24H RACHELE Ondansetron HCl (Ondansetron 4 Mg/2 Ml Sdv) 4 mg IV Q4H PRN PRN Reason: Nausea/Vomiting Simethicone (Simethicone 80 Mg Tab.Chew) 80 mg PO Q6H PRN PRN Reason: Gas Sodium Chloride (Sodium Chloride 0.9% 10 Ml Syringe) 10 ml FLUSH ASDIRECTED PRN PRN Reason: Keep Vein Open Last Admin: 01/10/21 10:49 Dose: 10 ml Documented by: Sodium Chloride (Sodium Chloride 0.9% 10 Ml Syringe) 10 ml FLUSH ONETIME PRN PRN Reason: IV FLUSH Last Admin: 01/10/21 12:58 Dose: 10 ml Documented by: Tamsulosin HCl (Tamsulosin 0.4 Mg Cap.Er) 0.8 mg PO BEDTIME RACHE[facility] Temazepam (Temazepam 7.5 Mg Cap) 7.5 mg PO BEDTIME PRN PRN Reason: Sleep Tiotropium Fairchance (Tiotropium Fairchance 4 Gm Inhalation Odell (2.5mcg/1 Dose; 10 Doses)) 0 gm INH DAILY [facility]AC[facility] Zinc Sulfate (Zinc Sulfate 220 Mg Cap) 220 mg PO DAILY RACHELE Discontinued Medications Baclofen (Baclofen 10 Mg Tab) 10 mg PO ONETIME ONE Stop: 01/11/21 00:50 Last Admin: 01/11/21 01:34 Dose: 10 mg Documented by: Sodium Chloride (Normal Saline) 1,000 mls @ 100 mls/hr IV ASDIRECTED RACHELE Last Admin: 01/11/21 04:29 Dose: 100 mls/hr Documented by: Remdesivir 200 mg/ Sodium (Chloride) 250 mls @ 250 mls/hr IV ONETIME ONE Stop: 01/10/21 17:26 Last Admin: 01/10/21 18:49 Dose: 250 mls/hr Documented by: Influenza Virus Vaccine (Flu Vacc [id number](65up)/Mf59c/Pf 60 Mcg/0.5 Ml Syringe) 60 mcg IM .ONCE ONE Stop: 01/10/21 20:01 Iopamidol (Iopamidol 612 Mg/Ml 50 Ml Sdv) 50 ml IVPUSH ONETIME ONE Stop: 01/10/21 12:33 Last Admin: 01/10/21 12:58 Dose: 50 ml Documented by: Iopamidol (Iopamidol 612 Mg/Ml 100 Ml Bottle) 100 ml IVPUSH ONETIME ONE Stop: 01/10/21 12:33 Last Admin: 01/10/21 12:58 Dose: 100 ml Documented by: - Exam Quality Assessment: Supplemental Oxygen (1 L per nasal cannula), Skin Breakdown (Coccyx; physical therapy/wound care to evaluate). No: DVT Prophylaxis (Contraindicated due to rectal bleeding; SCDs ordered) General: Alert, Oriented, Cooperative HEENT: Pupils Equal, Mucous Membr. Moist/[place] Neck: Supple, Trachea Midline Lungs: Normal Respiratory Effort, Crackles (Bilaterally) Cardiovascular: Regular Rate, Regular Rhythm, No Murmurs GI/Abdominal Exam: Normal Bowel Sounds, Soft, Non-Tender, No Distention (Male) Exam: Deferred Back Exam: Normal Inspection Extremities: Normal Inspection, Other (Patient does have a history of spinal injury and right upper extremity is flaccid, limited mobility control of left upper extremity; patient is able to ambulate with a cane.) Peripheral Pulses: 2+: Radial (L), Radial (R) Skin: Warm, Dry, Other (Pressure ulcer noted to coccyx) Wound/Incisions: Decubitis (Coccyx; physical therapy for wound care) Neurological: No New Focal Deficit Psy/Mental Status: Alert, Normal Mood. No: Normal Affect (Flat affect) - Patient Data Lab Results Last 24 hrs: Laboratory Results - last 24 hr 01/10/21 01/10/21 01/10/21 Range/Units 13:46 15:52 19:56 WBC (4.23-9.07) K/mm3 RBC (4.63-6.08) M/mm3 Hgb 15.9 15.7 (13.7-17.5) gm/dl Hct 48.7 48.7 (40.1-51.0) % MCV (79.0-92.2) fl MCH (25.7-32.2) pg MCHC (32.2-35.5) g/dl RDW Std Deviation (35.1-43.9) fL Plt Count (163-337) K/mm3 MPV (9.4-12.3) fl Neut % (Auto) (34.0-67.9) % Lymph % (Auto) (21.8-53.1) % Orange % (Auto) (5.3-12.2) % Eos % (Auto) (0.8-7.0) Baso % (Auto) (0.1-1.2) % Neut # (Auto) (1.78-5.38) K/mm3 Lymph # (Auto) (1.32-3.57) K/mm3 Orange # (Auto) (0.30-0.82) K/mm3 Eos # (Auto) (0.04-0.54) K/mm3 Baso # (Auto) (0.01-0.08) K/mm3 Manual Slide Review Sodium (136-145) mEq/L Potassium (3.5-5.1) mEq/L Chloride (98-107) mEq/L Carbon Dioxide (21-32) mEq/L Anion Gap (5-15) BUN (7-18) mg/dL Creatinine (0.7-1.3) mg/dL Est Cr Clr Drug Dosing mL/min Estimated GFR (MDRD) (>60) mL/min BUN/Creatinine Ratio (14-18) Glucose (70-99) mg/dL Calcium (8.5-10.1) mg/dL Magnesium (1.8-2.4) mg/dL Total Bilirubin (0.2-1.0) mg/dL AST (15-37) U/L ALT (16-63) U/L Alkaline Phosphatase (46-116) U/L Total Protein (6.4-8.2) g/dl Albumin (3.4-5.0) g/dl Globulin gm/dL Albumin/Globulin Ratio (1-2) SARS-CoV-2 RNA (BEN) Positive H (NEGATIVE) 01/11/21 01/11/21 01/11/21 Range/Units 00:18 04:07 04:07 WBC 4.10 L (4.23-9.07) K/mm3 RBC 5.10 (4.63-6.08) M/mm3 Hgb 16.0 16.3 (13.7-17.5) gm/dl Hct 50.0 51.1 H (40.1-51.0) % MCV 100.2 H (79.0-92.2) fl MCH 32.0 (25.7-32.2) pg MCHC 31.9 L (32.2-35.5) g/dl RDW Std Deviation 51.8 H (35.1-43.9) fL Plt Count 85 L (163-337) K/mm3 MPV 10.4 (9.4-12.3) fl Neut % (Auto) 81.3 H (34.0-67.9) % Lymph % (Auto) 10.2 L (21.8-53.1) % Orange % (Auto) 6.6 (5.3-12.2) % Eos % (Auto) 1.2 (0.8-7.0) Baso % (Auto) 0.2 (0.1-1.2) % Neut # (Auto) 3.33 (1.78-5.38) K/mm3 Lymph # (Auto) 0.42 L (1.32-3.57) K/mm3 Orange # (Auto) 0.27 L (0.30-0.82) K/mm3 Eos # (Auto) 0.05 (0.04-0.54) K/mm3 Baso # (Auto) 0.01 (0.01-0.08) K/mm3 Manual Slide Review Abnormal smear Sodium 139 (136-145) mEq/L Potassium 4.4 (3.5-5.1) mEq/L Chloride 103 (98-107) mEq/L Carbon Dioxide 32 (21-32) mEq/L Anion Gap 8.4 (5-15) BUN 10 (7-18) mg/dL Creatinine 0.7 (0.7-1.3) mg/dL Est Cr Clr Drug Dosing 102.40 mL/min Estimated GFR (MDRD) > 60 (>60) mL/min BUN/Creatinine Ratio 14.3 (14-18) Glucose 115 H (70-99) mg/dL Calcium 8.4 L (8.5-10.1) mg/dL Magnesium 1.8 (1.8-2.4) mg/dL Total Bilirubin 0.9 (0.2-1.0) mg/dL AST 14 L (15-37) U/L ALT 35 (16-63) U/L Alkaline Phosphatase 79 (46-116) U/L Total Protein 5.8 L (6.4-8.2) g/dl Albumin 2.4 L (3.4-5.0) g/dl Globulin 3.4 gm/dL Albumin/Globulin Ratio 0.7 L (1-2) SARS-CoV-2 RNA (BEN) (NEGATIVE) 01/11/21 Range/Units 14:08 WBC (4.23-9.07) K/mm3 RBC (4.63-6.08) M/mm3 Hgb 15.8 (13.7-17.5) gm/dl Hct 48.7 (40.1-51.0) % MCV (79.0-92.2) fl MCH (25.7-32.2) pg MCHC (32.2-35.5) g/dl RDW Std Deviation (35.1-43.9) fL Plt Count (163-337) K/mm3 MPV (9.4-12.3) fl Neut % (Auto) (34.0-67.9) % Lymph % (Auto) (21.8-53.1) % Orange % (Auto) (5.3-12.2) % Eos % (Auto) (0.8-7.0) Baso % (Auto) (0.1-1.2) % Neut # (Auto) (1.78-5.38) K/mm3 Lymph # (Auto) (1.32-3.57) K/mm3 Orange # (Auto) (0.30-0.82) K/mm3 Eos # (Auto) (0.04-0.54) K/mm3 Baso # (Auto) (0.01-0.08) K/mm3 Manual Slide Review Sodium (136-145) mEq/L Potassium (3.5-5.1) mEq/L Chloride (98-107) mEq/L Carbon Dioxide (21-32) mEq/L Anion Gap (5-15) BUN (7-18) mg/dL Creatinine (0.7-1.3) mg/dL Est Cr Clr Drug Dosing mL/min Estimated GFR (MDRD) (>60) mL/min BUN/Creatinine Ratio (14-18) Glucose (70-99) mg/dL Calcium (8.5-10.1) mg/dL Magnesium (1.8-2.4) mg/dL Total Bilirubin (0.2-1.0) mg/dL AST (15-37) U/L ALT (16-63) U/L Alkaline Phosphatase (46-116) U/L Total Protein (6.4-8.2) g/dl Albumin (3.4-5.0) g/dl Globulin gm/dL Albumin/Globulin Ratio (1-2) SARS-CoV-2 RNA (BEN) (NEGATIVE) Result Diagrams: 01/11/21 14:08 01/11/21 04:07 Sepsis Event Note - Evaluation Sepsis Screening Result: No Definite Risk - Focused Exam Vital Signs: Vital Signs Temp Pulse Resp BP Pulse Ox Pulse Ox 01/11/21 11:36 98.4 F 83 24 H 127/74 87 L 01/11/21 08:18 99.7 F 94 26 H 143/74 H 88 L 01/11/21 06:23 92 L 01/11/21 03:53 99.0 F 87 20 135/76 91 L - Problem List & Annotations (1) History of COPD SNOMED Code(s): 205309105 Code(s): Z87.09 - PERSONAL HISTORY OF OTHER DISEASES OF THE RESPIRATORY SYSTEM Status: Chronic Priority: Medium Current Visit: Yes (2) Lower GI bleed SNOMED Code(s): 14575352 Code(s): K92.2 - GASTROINTESTINAL HEMORRHAGE, UNSPECIFIED Status: Acute Priority: High Current Visit: Yes (3) History of spinal cord injury SNOMED Code(s): 59176142983796 Code(s): Z87.828 - PERSONAL HISTORY OF OTH (HEALED) PHYSICAL INJURY AND TRAUMA Status: Chronic Priority: Low Current Visit: Yes (4) Decubital ulcer SNOMED Code(s): 627916499 Code(s): L89.90 - PRESSURE ULCER OF UNSPECIFIED SITE, UNSPECIFIED STAGE Status: Acute Priority: High Current Visit: Yes Qualifiers: Pressure injury location: sacral region Pressure injury stage: unspecified pressure injury stage Qualified Code(s): L89.159 - Pressure ulcer of sacral region, unspecified stage (5) COVID-19 SNOMED Code(s): 829349621 Code(s): U07.1 - COVID-19 Status: Acute Current Visit: Yes - Problem List Review Problem List Initiated/Reviewed/Updated: Yes - My Orders Last 24 Hours: My Active Orders 01/10/21 14:08 Cardiac Monitoring [RC] . DIRECTED 01/10/21 14:11 Intake and Output [RC] 04,16 Oxygen Therapy [RC] PRN Up With Assistance [RC] BID Vital Signs [RC] Q4HR Consult to Case Management/Boiler Repair Supervisor [CONS] Routine Consult to Fluid Jet Cutter Operator [CONS] Routine Consult to Physician [CONS] Routine OT Evaluation and Treatment [CONS] Routine PT Evaluation and Treatment [CONS] Routine Respiratory Care Assess and Treatment [CONS] Routine Acetaminophen [TylenoL] 650 mg PO Q4H PRN Acetaminophen/HYDROcodone [Enloe 325-5 MG] 1 tab PO Q4H PRN HYDROmorphone [Dilaudid] 0.25 mg IVPUSH Q2H PRN Ondansetron [Zofran] 4 mg IV Q4H PRN Temazepam [Restoril] 7.5 mg PO BEDTIME PRN Anticoagulation Contraindications VTE [AST] Per Unit Routine 01/10/21 14:16 Notify Provider Consults [RC] ASDIRECTED 01/10/21 21:00 Famotidine [Pepcid] 20 mg IVPUSH BEDTIME 01/11/21 09:14 Simethicone 80 mg PO Q6H PRN 01/11/21 10:44 PT Evaluation and Treatment [CONS] Routine 01/11/21 13:00 Baclofen [Lioresal] 10 mg PO QID 01/11/21 Dinner Regular Diet [DIET] 01/11/21 19:00 Remdesivir 100 mg Sodium Chloride 0.9% [Normal Saline] 100 ml IV Q24H 01/11/21 21:00 Baclofen [Lioresal] 10 mg PO BEDTIME Fluticasone Propionate [Flonase] 0 gm NASBOTH BID Tamsulosin [Flomax] 0.8 mg PO BEDTIME guaiFENesin [Mucinex] 1,200 mg PO BID 01/12/21 05:11 CBC WITH AUTO DIFF [HEME] DAILY COMPREHENSIVE METABOLIC PN,CMP [CHEM] DAILY MAGNESIUM [CHEM] DAILY 01/12/21 09:00 Lidocaine 4% [Aspercreme 4%] 1 each TOP DAILY Tiotropium Fairchance [Spiriva Respimat] 0 gm INH DAILY Zinc Sulfate [Zincate] 220 mg PO DAILY 01/13/21 05:11 CBC WITH AUTO DIFF [HEME] DAILY COMPREHENSIVE METABOLIC PN,CMP [CHEM] DAILY MAGNESIUM [CHEM] DAILY 01/14/21 05:11 CBC WITH AUTO DIFF [HEME] DAILY COMPREHENSIVE METABOLIC PN,CMP [CHEM] DAILY MAGNESIUM [CHEM] DAILY 01/15/21 05:11 CBC WITH AUTO DIFF [HEME] DAILY COMPREHENSIVE METABOLIC PN,CMP [CHEM] DAILY MAGNESIUM [CHEM] DAILY - Plan Plan:: 65-year-old male who presents with 5-day history of rectal bleeding which has progressively worsened. And is not taking any anticoagulants or NSAIDs. Patient does not drink alcohol. Denies any abdominal pain. Hemoglobin and hematocrit are stable at this time. Patient is not hypotensive or tachycardic. CT scan was essentially unremarkable. PLAN: History of COPD * O2 to keep sats between 88-92% * Albuterol nebs prn * RT to eval and treat Lower GI bleed * H&H Q4h * NPO * Consult general surgery * VS q4h; monitor for hypotension and tachycardia * Saline Lock History of spinal cord injury; Decubital ulcer * Reposition every 2 hours * Nursing staff to apply Mepilex to coccyx * PT/OT to eval and treat for strengthening as patient states he is still amb ulatory Primary physician: pt needs DVT prophylaxis: contraindicated at this time due to GIB, pt placed on SCD's GI: Pepcid Code Status: Full Code Disposition: guest services coordinator and case management to assist with discharge planning. Patient will likely be here greater than 96 hours due to the xiang tment of Covid. 01/11/2021 65-year-old male who presented with a history of rectal bleeding. Nursing staff reports that there has been no bowel movements or rectal bleeding noted this morning. General surgeon, , did see the patient in consult last evening and recommended outpatient EGD and colonoscopy as the patient is stable and Covid test did come back positive. I did speak with Dr. Jameson today and he states that we can allow the patient to eat and drink. IV fluids were saline locked and the patient was placed on regular diet. Patient was given first dose of remdesivir last evening and will complete a 5-day course of treatment. He was also started on dexamethasone 6 mg daily. I have ordered incentive spirometer and flutter valve as well. Patient was titrated down to 1 L of oxygen per nasal cannula today and is doing well. As stated above, hemoglobins remained stable. Initially had been checking hemoglobins every 4 hours however we will check these every 12. Patient states that he did not sleep well last night so I ordered for him to receive melatonin at bedtime. Physical therapy has been ordered for wound care. They will also evaluate and treat for ambul ation however the patient refused today as he does not have his cane at the hospital. Labs this a.m. reveal a WBC of 4.10, hemoglobin 16.3, hematocrit 51.1, platelet count 85,000, chemistry reveals a sodium of 139, potassium 4.4, chloride 103, anion gap 8.4, BUN 10, creatinine 0.7, GFR greater than 60, glucose 115, calcium 8.4, magnesium 1.8 As stated above, patient's platelet count is 85,000 which is down from 97,000 yesterday. Discussed the case with Dr. Lynch who recommends I order HIT panel as the patient was at [facility] and may have been receiving heparin while he was there. <Yobany Lynch - Last Filed: 01/11/21 15:14> - Patient Data Vitals - Most Recent: Last Vital Signs Temp 36.9 C 01/11/21 11:36 Pulse 83 01/11/21 11:36 Resp 24 H 01/11/21 11:36 BP 127/74 01/11/21 11:36 Pulse Ox 87 L 01/11/21 11:36 I&O - Last 24 Hours: Intake & Output 01/11/21 01/11/21 01/11/21 06:59 14:59 22:59 Intake Total 1008 Balance 1008 Lab Results Last 24 Hours: Laboratory Results - last 24 hr 01/10/21 01/10/21 01/10/21 Range/Units 13:46 15:52 19:56 WBC (4.23-9.07) K/mm3 RBC (4.63-6.08) M/mm3 Hgb 15.9 15.7 (13.7-17.5) gm/dl Hct 48.7 48.7 (40.1-51.0) % MCV (79.0-92.2) fl MCH (25.7-32.2) pg MCHC (32.2-35.5) g/dl RDW Std Deviation (35.1-43.9) fL Plt Count (163-337) K/mm3 MPV (9.4-12.3) fl Neut % (Auto) (34.0-67.9) % Lymph % (Auto) (21.8-53.1) % Orange % (Auto) (5.3-12.2) % Eos % (Auto) (0.8-7.0) Baso % (Auto) (0.1-1.2) % Neut # (Auto) (1.78-5.38) K/mm3 Lymph # (Auto) (1.32-3.57) K/mm3 Orange # (Auto) (0.30-0.82) K/mm3 Eos # (Auto) (0.04-0.54) K/mm3 Baso # (Auto) (0.01-0.08) K/mm3 Manual Slide Review Sodium (136-145) mEq/L Potassium (3.5-5.1) mEq/L Chloride (98-107) mEq/L Carbon Dioxide (21-32) mEq/L Anion Gap (5-15) BUN (7-18) mg/dL Creatinine (0.7-1.3) mg/dL Est Cr Clr Drug Dosing mL/min Estimated GFR (MDRD) (>60) mL/min BUN/Creatinine Ratio (14-18) Glucose (70-99) mg/dL Calcium (8.5-10.1) mg/dL Magnesium (1.8-2.4) mg/dL Total Bilirubin (0.2-1.0) mg/dL AST (15-37) U/L ALT (16-63) U/L Alkaline Phosphatase (46-116) U/L Total Protein (6.4-8.2) g/dl Albumin (3.4-5.0) g/dl Globulin gm/dL Albumin/Globulin Ratio (1-2) SARS-CoV-2 RNA ([facility]) Positive H (NEGATIVE) 01/11/21 01/11/21 01/11/21 Range/Units 00:18 04:07 04:07 WBC 4.10 L (4.23-9.07) K/mm3 RBC 5.10 (4.63-6.08) M/mm3 Hgb 16.0 16.3 (13.7-17.5) gm/dl Hct 50.0 51.1 H (40.1-51.0) % MCV 100.2 H (79.0-92.2) fl MCH 32.0 (25.7-32.2) pg MCHC 31.9 L (32.2-35.5) g/dl RDW Std Deviation 51.8 H (35.1-43.9) fL Plt Count 85 L (163-337) K/mm3 MPV 10.4 (9.4-12.3) fl Neut % (Auto) 81.3 H (34.0-67.9) % Lymph % (Auto) 10.2 L (21.8-53.1) % Orange % (Auto) 6.6 (5.3-12.2) % Eos % (Auto) 1.2 (0.8-7.0) Baso % (Auto) 0.2 (0.1-1.2) % Neut # (Auto) 3.33 (1.78-5.38) K/mm3 Lymph # (Auto) 0.42 L (1.32-3.57) K/mm3 Orange # (Auto) 0.27 L (0.30-0.82) K/mm3 Eos # (Auto) 0.05 (0.04-0.54) K/mm3 Baso # (Auto) 0.01 (0.01-0.08) K/mm3 Manual Slide Review Abnormal smear Sodium 139 (136-145) mEq/L Potassium 4.4 (3.5-5.1) mEq/L Chloride 103 (98-107) mEq/L Carbon Dioxide 32 (21-32) mEq/L Anion Gap 8.4 (5-15) BUN 10 (7-18) mg/dL Creatinine 0.7 (0.7-1.3) mg/dL Est Cr Clr Drug Dosing 102.40 mL/min Estimated GFR (MDRD) > 60 (>60) mL/min BUN/Creatinine Ratio 14.3 (14-18) Glucose 115 H (70-99) mg/dL Calcium 8.4 L (8.5-10.1) mg/dL Magnesium 1.8 (1.8-2.4) mg/dL Total Bilirubin 0.9 (0.2-1.0) mg/dL AST 14 L (15-37) U/L ALT 35 (16-63) U/L Alkaline Phosphatase 79 (46-116) U/L Total Protein 5.8 L (6.4-8.2) g/dl Albumin 2.4 L (3.4-5.0) g/dl Globulin 3.4 gm/dL Albumin/Globulin Ratio 0.7 L (1-2) SARS-CoV-2 RNA ([facility]) (NEGATIVE) 01/11/21 Range/Units 14:08 WBC (4.23-9.07) K/mm3 RBC (4.63-6.08) M/mm3 Hgb 15.8 (13.7-17.5) gm/dl Hct 48.7 (40.1-51.0) % MCV (79.0-92.2) fl MCH (25.7-32.2) pg MCHC (32.2-35.5) g/dl RDW Std Deviation (35.1-43.9) fL Plt Count (163-337) K/mm3 MPV (9.4-12.3) fl Neut % (Auto) (34.0-67.9) % Lymph % (Auto) (21.8-53.1) % Orange % (Auto) (5.3-12.2) % Eos % (Auto) (0.8-7.0) Baso % (Auto) (0.1-1.2) % Neut # (Auto) (1.78-5.38) K/mm3 Lymph # (Auto) (1.32-3.57) K/mm3 Orange # (Auto) (0.30-0.82) K/mm3 Eos # (Auto) (0.04-0.54) K/mm3 Baso # (Auto) (0.01-0.08) K/mm3 Manual Slide Review Sodium (136-145) mEq/L Potassium (3.5-5.1) mEq/L Chloride (98-107) mEq/L Carbon Dioxide (21-32) mEq/L Anion Gap (5-15) BUN (7-18) mg/dL Creatinine (0.7-1.3) mg/dL Est Cr Clr Drug Dosing mL/min Estimated GFR (MDRD) (>60) mL/min BUN/Creatinine Ratio (14-18) Glucose (70-99) mg/dL Calcium (8.5-10.1) mg/dL Magnesium (1.8-2.4) mg/dL Total Bilirubin (0.2-1.0) mg/dL AST (15-37) U/L ALT (16-63) U/L Alkaline Phosphatase (46-116) U/L Total Protein (6.4-8.2) g/dl Albumin (3.4-5.0) g/dl Globulin gm/dL Albumin/Globulin Ratio (1-2) SARS-CoV-2 RNA ([facility]) (NEGATIVE) Med Orders - Current: Current Medications Acetaminophen (Acetaminophen 325 Mg Tab) 650 mg PO Q4H PRN PRN Reason: Pain (Mild 1-3)/fever Last Admin: 01/11/21 12:11 Dose: 650 mg Documented by: Hydrocodone Bitart/Acetaminophen (Acetaminophen/Hydrocodone 325-5 Mg Tab) 1 tab PO Q4H PRN PRN Reason: Pain (moderate 4-6) Last Admin: 01/11/21 15:06 Dose: 1 tab Documented by: Albuterol/Ipratropium (Albuterol/Ipratropium 3.0-0.5 Mg/3 Ml Neb Soln) 3 ml NEB Q4H PRN PRN Reason: Shortness Of Breath/wheezing Baclofen (Baclofen 10 Mg Tab) 10 mg PO BEDTIME [facility] Baclofen (Baclofen 10 Mg Tab) 10 mg PO QID [facility] Last Admin: 01/11/21 12:11 Dose: 10 mg Documented by: Dexamethasone (Dexamethasone 4 Mg Tab) 6 mg PO DAILY [facility] Last Admin: 01/11/21 08:19 Dose: 6 mg Documented by: Famotidine (Famotidine 20 Mg Tab) 20 mg PO DAILY [facility] Fluticasone Propionate (Fluticasone Propionate Nasal Odell 16 Gm Bottle) 0 gm NASBOTH BID [facility] Guaifenesin (Guaifenesin 600 Mg Tab.Er) 1,200 mg PO BID [facility] Hydromorphone HCl (Hydromorphone 0.5 Mg/0.5 Ml Syringe) 0.25 mg IVPUSH Q2H PRN PRN Reason: Pain (severe 7-10) Remdesivir 100 mg/ Sodium (Chloride) 100 mls @ 100 mls/hr IV Q24H [facility] Stop: 01/14/21 19:59 Lidocaine (Lidocaine 4% 1 Each Patch) 1 each TOP DAILY [facility] Melatonin (Melatonin 3 Mg Tab) 6 mg PO BEDTIME [facility] Miscellaneous Information (Remove Patch) 0 ea TRDERM Q24H [facility] Ondansetron HCl (Ondansetron 4 Mg/2 Ml Sdv) 4 mg IV Q4H PRN PRN Reason: Nausea/Vomiting Simethicone (Simethicone 80 Mg Tab.Chew) 80 mg PO Q6H PRN PRN Reason: Gas Sodium Chloride (Sodium Chloride 0.9% 10 Ml Syringe) 10 ml FLUSH ASDIRECTED PRN PRN Reason: Keep Vein Open Last Admin: 01/10/21 10:49 Dose: 10 ml Documented by: Sodium Chloride (Sodium Chloride 0.9% 10 Ml Syringe) 10 ml FLUSH ONETIME PRN PRN Reason: IV FLUSH Last Admin: 01/10/21 12:58 Dose: 10 ml Documented by: Tamsulosin HCl (Tamsulosin 0.4 Mg Cap.Er) 0.8 mg PO BEDTIME [facility] Tiotropium Fairchance (Tiotropium Fairchance 4 Gm Inhalation Odell (2.5mcg/1 Dose; 10 Doses)) 0 gm INH DAILY [facility] Zinc Sulfate (Zinc Sulfate 220 Mg Cap) 220 mg PO DAILY [facility] Discontinued Medications Baclofen (Baclofen 10 Mg Tab) 10 mg PO ONETIME ONE Stop: 01/11/21 00:50 Last Admin: 01/11/21 01:34 Dose: 10 mg Documented by: Famotidine (Famotidine 20 Mg/2 Ml Sdv) 20 mg IVPUSH BEDTIME [facility] Last Admin: 01/10/21 21:15 Dose: 20 mg Documented by: Sodium Chloride (Normal Saline) 1,000 mls @ 100 mls/hr IV ASDIRECTED [facility] Last Admin: 01/11/21 04:29 Dose: 100 mls/hr Documented by: Remdesivir 200 mg/ Sodium (Chloride) 250 mls @ 250 mls/hr IV ONETIME ONE Stop: 01/10/21 17:26 Last Admin: 01/10/21 18:49 Dose: 250 mls/hr Documented by: Influenza Virus Vaccine (Flu Vacc [id number](65up)/Mf59c/Pf 60 Mcg/0.5 Ml Syringe) 60 mcg IM .ONCE ONE Stop: 01/10/21 20:01 Iopamidol (Iopamidol 612 Mg/Ml 50 Ml Sdv) 50 ml IVPUSH ONETIME ONE Stop: 01/10/21 12:33 Last Admin: 01/10/21 12:58 Dose: 50 ml Documented by: Iopamidol (Iopamidol 612 Mg/Ml 100 Ml Bottle) 100 ml IVPUSH ONETIME ONE Stop: 01/10/21 12:33 Last Admin: 01/10/21 12:58 Dose: 100 ml Documented by: Temazepam (Temazepam 7.5 Mg Cap) 7.5 mg PO BEDTIME PRN PRN Reason: Sleep - Patient Data Lab Results Last 24 hrs: Laboratory Results - last 24 hr 01/10/21 01/10/21 01/10/21 Range/Units 13:46 15:52 19:56 WBC (4.23-9.07) K/mm3 RBC (4.63-6.08) M/mm3 Hgb 15.9 15.7 (13.7-17.5) gm/dl Hct 48.7 48.7 (40.1-51.0) % MCV (79.0-92.2) fl MCH (25.7-32.2) pg MCHC (32.2-35.5) g/dl RDW Std Deviation (35.1-43.9) fL Plt Count (163-337) K/mm3 MPV (9.4-12.3) fl Neut % (Auto) (34.0-67.9) % Lymph % (Auto) (21.8-53.1) % Orange % (Auto) (5.3-12.2) % Eos % (Auto) (0.8-7.0) Baso % (Auto) (0.1-1.2) % Neut # (Auto) (1.78-5.38) K/mm3 Lymph # (Auto) (1.32-3.57) K/mm3 Orange # (Auto) (0.30-0.82) K/mm3 Eos # (Auto) (0.04-0.54) K/mm3 Baso # (Auto) (0.01-0.08) K/mm3 Manual Slide Review Sodium (136-145) mEq/L Potassium (3.5-5.1) mEq/L Chloride (98-107) mEq/L Carbon Dioxide (21-32) mEq/L Anion Gap (5-15) BUN (7-18) mg/dL Creatinine (0.7-1.3) mg/dL Est Cr Clr Drug Dosing mL/min Estimated GFR (MDRD) (>60) mL/min BUN/Creatinine Ratio (14-18) Glucose (70-99) mg/dL Calcium (8.5-10.1) mg/dL Magnesium (1.8-2.4) mg/dL Total Bilirubin (0.2-1.0) mg/dL AST (15-37) U/L ALT (16-63) U/L Alkaline Phosphatase (46-116) U/L Total Protein (6.4-8.2) g/dl Albumin (3.4-5.0) g/dl Globulin gm/dL Albumin/Globulin Ratio (1-2) SARS-CoV-2 RNA (BEN) Positive H (NEGATIVE) 01/11/21 01/11/21 01/11/21 Range/Units 00:18 04:07 04:07 WBC 4.10 L (4.23-9.07) K/mm3 RBC 5.10 (4.63-6.08) M/mm3 Hgb 16.0 16.3 (13.7-17.5) gm/dl Hct 50.0 51.1 H (40.1-51.0) % MCV 100.2 H (79.0-92.2) fl MCH 32.0 (25.7-32.2) pg MCHC 31.9 L (32.2-35.5) g/dl RDW Std Deviation 51.8 H (35.1-43.9) fL Plt Count 85 L (163-337) K/mm3 MPV 10.4 (9.4-12.3) fl Neut % (Auto) 81.3 H (34.0-67.9) % Lymph % (Auto) 10.2 L (21.8-53.1) % Orange % (Auto) 6.6 (5.3-12.2) % Eos % (Auto) 1.2 (0.8-7.0) Baso % (Auto) 0.2 (0.1-1.2) % Neut # (Auto) 3.33 (1.78-5.38) K/mm3 Lymph # (Auto) 0.42 L (1.32-3.57) K/mm3 Orange # (Auto) 0.27 L (0.30-0.82) K/mm3 Eos # (Auto) 0.05 (0.04-0.54) K/mm3 Baso # (Auto) 0.01 (0.01-0.08) K/mm3 Manual Slide Review Abnormal smear Sodium 139 (136-145) mEq/L Potassium 4.4 (3.5-5.1) mEq/L Chloride 103 (98-107) mEq/L Carbon Dioxide 32 (21-32) mEq/L Anion Gap 8.4 (5-15) BUN 10 (7-18) mg/dL Creatinine 0.7 (0.7-1.3) mg/dL Est Cr Clr Drug Dosing 102.40 mL/min Estimated GFR (MDRD) > 60 (>60) mL/min BUN/Creatinine Ratio 14.3 (14-18) Glucose 115 H (70-99) mg/dL Calcium 8.4 L (8.5-10.1) mg/dL Magnesium 1.8 (1.8-2.4) mg/dL Total Bilirubin 0.9 (0.2-1.0) mg/dL AST 14 L (15-37) U/L ALT 35 (16-63) U/L Alkaline Phosphatase 79 (46-116) U/L Total Protein 5.8 L (6.4-8.2) g/dl Albumin 2.4 L (3.4-5.0) g/dl Globulin 3.4 gm/dL Albumin/Globulin Ratio 0.7 L (1-2) SARS-CoV-2 RNA ([facility]) (NEGATIVE) 01/11/21 Range/Units 14:08 WBC (4.23-9.07) K/mm3 RBC (4.63-6.08) M/mm3 Hgb 15.8 (13.7-17.5) gm/dl Hct 48.7 (40.1-51.0) % MCV (79.0-92.2) fl MCH (25.7-32.2) pg MCHC (32.2-35.5) g/dl RDW Std Deviation (35.1-43.9) fL Plt Count (163-337) K/mm3 MPV (9.4-12.3) fl Neut % (Auto) (34.0-67.9) % Lymph % (Auto) (21.8-53.1) % Orange % (Auto) (5.3-12.2) % Eos % (Auto) (0.8-7.0) Baso % (Auto) (0.1-1.2) % Neut # (Auto) (1.78-5.38) K/mm3 Lymph # (Auto) (1.32-3.57) K/mm3 Orange # (Auto) (0.30-0.82) K/mm3 Eos # (Auto) (0.04-0.54) K/mm3 Baso # (Auto) (0.01-0.08) K/mm3 Manual Slide Review Sodium (136-145) mEq/L Potassium (3.5-5.1) mEq/L Chloride (98-107) mEq/L Carbon Dioxide (21-32) mEq/L Anion Gap (5-15) BUN (7-18) mg/dL Creatinine (0.7-1.3) mg/dL Est Cr Clr Drug Dosing mL/min Estimated GFR (MDRD) (>60) mL/min BUN/Creatinine Ratio (14-18) Glucose (70-99) mg/dL Calcium (8.5-10.1) mg/dL Magnesium (1.8-2.4) mg/dL Total Bilirubin (0.2-1.0) mg/dL AST (15-37) U/L ALT (16-63) U/L Alkaline Phosphatase (46-116) U/L Total Protein (6.4-8.2) g/dl Albumin (3.4-5.0) g/dl Globulin gm/dL Albumin/Globulin Ratio (1-2) SARS-CoV-2 RNA (BEN) (NEGATIVE) Result Diagrams: 01/11/21 14:08 01/11/21 04:07 Sepsis Event Note - Focused Exam Vital Signs: Vital Signs Temp Pulse Resp BP Pulse Ox Pulse Ox 01/11/21 11:36 36.9 C 83 24 H 127/74 87 L 01/11/21 08:18 37.6 C 94 26 H 143/74 H 88 L 01/11/21 06:23 92 L 01/11/21 03:53 37.2 C 87 20 135/76 91 L - My Orders Last 24 Hours: My Active Orders 01/10/21 16:05 Resuscitation Status Routine 01/10/21 17:24 VTE/DVT Education [RC] DAILY Albuterol/Ipratropium [DuoNeb 3.0-0.5 MG/3 ML] 3 ml NEB Q4H PRN 01/10/21 17:25 RT Aerosol Therapy [RC] ASDIRECTED 01/10/21 19:52 Vaccine to be Administered/Admin Charge [RC] ASDIRECTED 01/10/21 19:54 Patient Status [ADT] Routine 01/11/21 09:00 dexAMETHasone 6 mg PO DAILY 01/11/21 09:12 Pulse Oximetry Continuous Monitoring [OM.PC] Routine 01/12/21 21:00 Remove Patch 0 ea TRDERM Q24H - Free Text/Narrative Note: I have seen and examined the patient independently of WILBUR Eng, and I have discussed the case with her. I have reviewed and agree with the plan of care as outlined by her. Please see orders.
[2021-01-11] MEDS: REMDESIVIR 100 MG in Sodium Chloride 0.9% 100 ML IV SCH (18:22)
[2021-01-11] MEDS: guaiFENesin 600 MG Tab.ER PO SCH (21:10)
[2021-01-11] MEDS: Melatonin 3 MG Tab PO SCH (21:11)
[2021-01-11] MEDS: Tamsulosin 0.4 MG Cap.ER PO SCH (21:12)
[2021-01-11] MEDS: Fluticasone Propionate Nasal Spray 16 GM Bottle NASBOTH SCH (21:13)
[2021-01-12] MEDS: guaiFENesin 600 MG Tab.ER PO SCH ×2 (09:19→21:02)
[2021-01-12] MEDS: Baclofen 10 MG Tab PO SCH ×5 (09:19→21:00)
[2021-01-12] MEDS: Famotidine 20 MG Tab PO SCH (09:19)
[2021-01-12] MEDS: Dexamethasone 4 MG Tab PO SCH (09:20)
[2021-01-12] MEDS: Fluticasone Propionate Nasal Spray 16 GM Bottle NASBOTH SCH ×2 (09:20→21:03)
[2021-01-12] MEDS: Lidocaine 4% 1 each Patch TOP SCH (09:20)
[2021-01-12] MEDS: Zinc Sulfate 220 MG Cap PO SCH (09:20)
[2021-01-12] MEDS: Tiotropium Bromide 4 GM Inhalation Spray (2.5mcg/1 dose; 10 doses) INH SCH (11:54)
[2021-01-12 11:59] LABS: VITAMIN D,25-HYDROXY 25.7 ng/ml (30.0-100.0)
--- NOTE | 2021-01-12 13:41 | PCM.PN ---
<Jason Silva M - Last Filed: 01/12/21 14:03> - General Info Date of Service: 01/12/21 Admission Dx/Problem (Free Text): Admission Diagnosis/Problem Admission Diagnosis/Problem GI bleed not requiring more than 4 units of blood in 24 hours, ICU, or surgery Subjective Update: Santi was seen on rounds this morning. He became very agitated when I asked him if he had been out of bed to ambulate yet. He told me that he's tired of telling everyone that he can't ambulate until he has his walking and shoes from home. He reports that his will be bringing it some time today. He states he did sleep well last evening after taking melatonin. Functional Status: Reports: Pain Controlled, Tolerating Diet, Urinating, Incentive Spirometry. Denies: Ambulating - Review of Systems General: Reports: No Symptoms HEENT: Reports: No Symptoms Pulmonary: Reports: Cough Cardiovascular: Reports: No Symptoms Gastrointestinal: Reports: No Symptoms Genitourinary: Reports: No Symptoms Musculoskeletal: Reports: Other (Story of spinal injury) Skin: Reports: No Symptoms Neurological: Reports: No Symptoms Psychiatric: Reports: Agitation - Patient Data Vitals - Most Recent: Last Vital Signs Temp 98.2 F 01/12/21 12:09 Pulse 61 01/12/21 12:09 Resp 16 01/12/21 12:09 BP 126/67 01/12/21 12:45 Pulse Ox 94 L 01/12/21 12:09 Weight - Most Recent: 89.358 kg I&O - Last 24 Hours: Intake & Output 01/11/21 01/12/21 01/12/21 22:59 06:59 14:59 Intake Total 1702 300 Balance 1702 300 Lab Results Last 24 Hours: Laboratory Results - last 24 hr 01/11/21 01/12/21 01/12/21 Range/Units 14:08 05:25 05:25 WBC 3.60 L (4.23-9.07) K/mm3 RBC 4.89 (4.63-6.08) M/mm3 Hgb 15.8 15.7 (13.7-17.5) gm/dl Hct 48.7 47.6 (40.1-51.0) % MCV 97.3 H (79.0-92.2) fl MCH 32.1 (25.7-32.2) pg MCHC 33.0 (32.2-35.5) g/dl RDW Std Deviation 49.1 H (35.1-43.9) fL Plt Count 106 L (163-337) K/mm3 MPV 10.8 (9.4-12.3) fl Neut % (Auto) 70.2 H (34.0-67.9) % Lymph % (Auto) 16.4 L (21.8-53.1) % Greenlee % (Auto) 12.8 H (5.3-12.2) % Eos % (Auto) 0 L (0.8-7.0) Baso % (Auto) 0.3 (0.1-1.2) % Neut # (Auto) 2.53 (1.78-5.38) K/mm3 Lymph # (Auto) 0.59 L (1.32-3.57) K/mm3 Greenlee # (Auto) 0.46 (0.30-0.82) K/mm3 Eos # (Auto) 0.00 L (0.04-0.54) K/mm3 Baso # (Auto) 0.01 (0.01-0.08) K/mm3 Sodium 139 (136-145) mEq/L Potassium 4.4 (3.5-5.1) mEq/L Chloride 104 (98-107) mEq/L Carbon Dioxide 31 (21-32) mEq/L Anion Gap 8.4 (5-15) BUN 19 H (7-18) mg/dL Creatinine 0.7 (0.7-1.3) mg/dL Est Cr Clr Drug Dosing 102.06 mL/min Estimated GFR (MDRD) > 60 (>60) mL/min BUN/Creatinine Ratio 27.1 H (14-18) Glucose 148 H (70-99) mg/dL Calcium 8.3 L (8.5-10.1) mg/dL Magnesium 1.9 (1.8-2.4) mg/dL Total Bilirubin 0.6 (0.2-1.0) mg/dL AST 12 L (15-37) U/L ALT 35 (16-63) U/L Alkaline Phosphatase 78 (46-116) U/L Total Protein 5.3 L (6.4-8.2) g/dl Albumin 2.4 L (3.4-5.0) g/dl Globulin 2.9 gm/dL Albumin/Globulin Ratio 0.8 L (1-2) Vitamin D 25-Hydroxy 25.7 L (30.0-100.0) ng/ml Med Orders - Current: Current Medications Acetaminophen (Acetaminophen 325 Mg Tab) 650 mg PO Q4H PRN PRN Reason: Pain (Mild 1-3)/fever Last Admin: 01/11/21 12:11 Dose: 650 mg Documented by: Hydrocodone Bitart/Acetaminophen (Acetaminophen/Hydrocodone 325-5 Mg Tab) 1 tab PO Q4H PRN PRN Reason: Pain (moderate 4-6) Last Admin: 01/11/21 15:06 Dose: 1 tab Documented by: Albuterol/Ipratropium (Albuterol/Ipratropium 3.0-0.5 Mg/3 Ml Neb Soln) 3 ml NEB Q4H PRN PRN Reason: Shortness Of Breath/wheezing Baclofen (Baclofen 10 Mg Tab) 10 mg PO BEDTIME [facility] Last Admin: 01/11/21 21:13 Dose: 10 mg Documented by: Baclofen (Baclofen 10 Mg Tab) 10 mg PO QID [facility] Last Admin: 01/12/21 12:44 Dose: 10 mg Documented by: Dexamethasone (Dexamethasone 4 Mg Tab) 6 mg PO DAILY [facility] Last Admin: 01/12/21 09:20 Dose: 6 mg Documented by: Famotidine (Famotidine 20 Mg Tab) 20 mg PO DAILY [facility] Last Admin: 01/12/21 09:19 Dose: 20 mg Documented by: Fluticasone Propionate (Fluticasone Propionate Nasal [place] 16 Gm Bottle) 0 gm NASBOTH BID [facility] Last Admin: 01/12/21 09:20 Dose: 1 spray Documented by: Guaifenesin (Guaifenesin 600 Mg Tab.Er) 1,200 mg PO BID [facility] Last Admin: 01/12/21 09:19 Dose: 1,200 mg Documented by: Hydromorphone HCl (Hydromorphone 0.5 Mg/0.5 Ml Syringe) 0.25 mg IVPUSH Q2H PRN PRN Reason: Pain (severe 7-10) Remdesivir 100 mg/ Sodium (Chloride) 100 mls @ 100 mls/hr IV Q24H [facility] Stop: 01/14/21 19:59 Last Admin: 01/11/21 18:22 Dose: 100 mls/hr Documented by: Lidocaine (Lidocaine 4% 1 Each Patch) 1 each TOP DAILY [facility] Last Admin: 01/12/21 09:20 Dose: 1 each Documented by: Melatonin (Melatonin 3 Mg Tab) 6 mg PO BEDTIME [facility] Last Admin: 01/11/21 21:11 Dose: 6 mg Documented by: Miscellaneous Information (Remove Patch) 0 ea TRDERM Q24H [facility] Ondansetron HCl (Ondansetron 4 Mg/2 Ml Sdv) 4 mg IV Q4H PRN PRN Reason: Nausea/Vomiting Simethicone (Simethicone 80 Mg Tab.Chew) 80 mg PO Q6H PRN PRN Reason: Gas Sodium Chloride (Sodium Chloride 0.9% 10 Ml Syringe) 10 ml FLUSH ASDIRECTED PRN PRN Reason: Keep Vein Open Last Admin: 01/10/21 10:49 Dose: 10 ml Documented by: Tamsulosin HCl (Tamsulosin 0.4 Mg Cap.Er) 0.8 mg PO BEDTIME [facility] Last Admin: 01/11/21 21:12 Dose: 0.8 mg Documented by: Tiotropium [place] (Tiotropium [place] 4 Gm Inhalation [place] (2.5mcg/1 Dose; 10 Doses)) 0 gm INH DAILY [facility] Last Admin: 01/12/21 11:54 Dose: Not Given Documented by: Zinc Sulfate (Zinc Sulfate 220 Mg Cap) 220 mg PO DAILY [facility] Last Admin: 01/12/21 09:20 Dose: 220 mg Documented by: Discontinued Medications Baclofen (Baclofen 10 Mg Tab) 10 mg PO ONETIME ONE Stop: 01/11/21 00:50 Last Admin: 01/11/21 01:34 Dose: 10 mg Documented by: Famotidine (Famotidine 20 Mg/2 Ml Sdv) 20 mg IVPUSH BEDTIME [facility] Last Admin: 01/10/21 21:15 Dose: 20 mg Documented by: Sodium Chloride (Normal Saline) 1,000 mls @ 100 mls/hr IV ASDIRECTED [facility] Last Admin: 01/11/21 04:29 Dose: 100 mls/hr Documented by: Remdesivir 200 mg/ Sodium (Chloride) 250 mls @ 250 mls/hr IV ONETIME ONE Stop: 01/10/21 17:26 Last Admin: 01/10/21 18:49 Dose: 250 mls/hr Documented by: Influenza Virus Vaccine (Flu Vacc [id number](65up)/Mf59c/Pf 60 Mcg/0.5 Ml Syringe) 60 mcg IM .ONCE ONE Stop: 01/10/21 20:01 Iopamidol (Iopamidol 612 Mg/Ml 50 Ml Sdv) 50 ml IVPUSH ONETIME ONE Stop: 01/10/21 12:33 Last Admin: 01/10/21 12:58 Dose: 50 ml Documented by: Iopamidol (Iopamidol 612 Mg/Ml 100 Ml Bottle) 100 ml IVPUSH ONETIME ONE Stop: 01/10/21 12:33 Last Admin: 01/10/21 12:58 Dose: 100 ml Documented by: Sodium Chloride (Sodium Chloride 0.9% 10 Ml Syringe) 10 ml FLUSH ONETIME PRN PRN Reason: IV FLUSH Last Admin: 01/10/21 12:58 Dose: 10 ml Documented by: Temazepam (Temazepam 7.5 Mg Cap) 7.5 mg PO BEDTIME PRN PRN Reason: Sleep - Exam Quality Assessment: Supplemental Oxygen (Conically at 2 to 3 L per nasal cannula), DVT Prophylaxis (SCDs) General: Alert, Oriented, No Acute Distress HEENT: Pupils Equal, Mucous Membr. Moist/Galliano Neck: Supple, Trachea Midline Lungs: Crackles (Bilateral) Cardiovascular: Regular Rate, Regular Rhythm, No Murmurs GI/Abdominal Exam: Normal Bowel Sounds, Soft, Non-Tender, No Distention (Male) Exam: Deferred Back Exam: Normal Inspection Extremities: Normal Inspection, Non-Tender, Normal Capillary Refill Peripheral Pulses: 2+: Radial (L), Radial (R) Skin: Warm, Dry, Intact Wound/Incisions: Dressing Dry and Intact (Sacrum) Neurological: No New Focal Deficit Psy/Mental Status: Alert, Agitated - Patient Data Lab Results Last 24 hrs: Laboratory Results - last 24 hr 01/11/21 01/12/21 01/12/21 Range/Units 14:08 05:25 05:25 WBC 3.60 L (4.23-9.07) K/mm3 RBC 4.89 (4.63-6.08) M/mm3 Hgb 15.8 15.7 (13.7-17.5) gm/dl Hct 48.7 47.6 (40.1-51.0) % MCV 97.3 H (79.0-92.2) fl MCH 32.1 (25.7-32.2) pg MCHC 33.0 (32.2-35.5) g/dl RDW Std Deviation 49.1 H (35.1-43.9) fL Plt Count 106 L (163-337) K/mm3 MPV 10.8 (9.4-12.3) fl Neut % (Auto) 70.2 H (34.0-67.9) % Lymph % (Auto) 16.4 L (21.8-53.1) % Greenlee % (Auto) 12.8 H (5.3-12.2) % Eos % (Auto) 0 L (0.8-7.0) Baso % (Auto) 0.3 (0.1-1.2) % Neut # (Auto) 2.53 (1.78-5.38) K/mm3 Lymph # (Auto) 0.59 L (1.32-3.57) K/mm3 Greenlee # (Auto) 0.46 (0.30-0.82) K/mm3 Eos # (Auto) 0.00 L (0.04-0.54) K/mm3 Baso # (Auto) 0.01 (0.01-0.08) K/mm3 Sodium 139 (136-145) mEq/L Potassium 4.4 (3.5-5.1) mEq/L Chloride 104 (98-107) mEq/L Carbon Dioxide 31 (21-32) mEq/L Anion Gap 8.4 (5-15) BUN 19 H (7-18) mg/dL Creatinine 0.7 (0.7-1.3) mg/dL Est Cr Clr Drug Dosing 102.06 mL/min Estimated GFR (MDRD) > 60 (>60) mL/min BUN/Creatinine Ratio 27.1 H (14-18) Glucose 148 H (70-99) mg/dL Calcium 8.3 L (8.5-10.1) mg/dL Magnesium 1.9 (1.8-2.4) mg/dL Total Bilirubin 0.6 (0.2-1.0) mg/dL AST 12 L (15-37) U/L ALT 35 (16-63) U/L Alkaline Phosphatase 78 (46-116) U/L Total Protein 5.3 L (6.4-8.2) g/dl Albumin 2.4 L (3.4-5.0) g/dl Globulin 2.9 gm/dL Albumin/Globulin Ratio 0.8 L (1-2) Vitamin D 25-Hydroxy 25.7 L (30.0-100.0) ng/ml Result Diagrams: 01/12/21 05:25 01/12/21 05:25 Sepsis Event Note - Evaluation Sepsis Screening Result: No Definite Risk - Focused Exam Vital Signs: Vital Signs Temp Pulse Resp BP Pulse Ox Pulse Ox 01/12/21 12:45 126/67 01/12/21 12:09 98.2 F 61 16 129/94 H 94 L 01/12/21 10:25 88 L 01/12/21 09:17 59 L 96 01/12/21 08:51 97.9 F 16 142/75 H 01/12/21 05:11 97.2 F 61 20 121/66 97 - Problem List & Annotations (1) History of COPD SNOMED Code(s): 685587617 Code(s): Z87.09 - PERSONAL HISTORY OF OTHER DISEASES OF THE RESPIRATORY SYSTEM Status: Chronic Priority: Medium Current Visit: Yes (2) Lower GI bleed SNOMED Code(s): 26185758 Code(s): K92.2 - GASTROINTESTINAL HEMORRHAGE, UNSPECIFIED Status: Acute Priority: High Current Visit: Yes (3) History of spinal cord injury SNOMED Code(s): 66524142055357 Code(s): Z87.828 - PERSONAL HISTORY OF OTH (HEALED) PHYSICAL INJURY AND TRAUMA Status: Chronic Priority: Low Current Visit: Yes (4) Decubital ulcer SNOMED Code(s): 430040288 Code(s): L89.90 - PRESSURE ULCER OF UNSPECIFIED SITE, UNSPECIFIED STAGE Status: Acute Priority: High Current Visit: Yes Qualifiers: Pressure injury location: sacral region Pressure injury stage: unspecified pressure injury stage Qualified Code(s): L89.159 - Pressure ulcer of sacral region, unspecified stage (5) COVID-19 SNOMED Code(s): 310916704 Code(s): U07.1 - COVID-19 Status: Acute Priority: High Current Visit: Yes - Problem List Review Problem List Initiated/Reviewed/Updated: Yes - My Orders Last 24 Hours: My Active Orders 01/11/21 13:00 Baclofen [Lioresal] 10 mg PO QID 01/11/21 14:34 RT Incentive Spirometry [RC] ASDIRECTED 01/11/21 Dinner Regular Diet [DIET] 01/11/21 19:00 Remdesivir 100 mg Sodium Chloride 0.9% [Normal Saline] 100 ml IV Q24H 01/11/21 21:00 Baclofen [Lioresal] 10 mg PO BEDTIME Fluticasone Propionate [Flonase] 0 gm NASBOTH BID Melatonin 6 mg PO BEDTIME Tamsulosin [Flomax] 0.8 mg PO BEDTIME guaiFENesin [Mucinex] 1,200 mg PO BID 01/12/21 05:25 MISC TEST Routine 01/12/21 09:00 Famotidine [Pepcid] 20 mg PO DAILY Lidocaine 4% [Aspercreme 4%] 1 each TOP DAILY Tiotropium [place] [Spiriva Respimat] 0 gm INH DAILY Zinc Sulfate [Zincate] 220 mg PO DAILY 01/12/21 13:22 CRP [C-REACTIVE PROTEIN] [CHEM] Routine D-DIMER QUANTITATIVE [COAG] Routine 01/13/21 05:11 CBC WITH AUTO DIFF [HEME] DAILY COMPREHENSIVE METABOLIC PN,CMP [CHEM] DAILY MAGNESIUM [CHEM] DAILY 01/14/21 05:11 CBC WITH AUTO DIFF [HEME] DAILY COMPREHENSIVE METABOLIC PN,CMP [CHEM] DAILY MAGNESIUM [CHEM] DAILY 01/15/21 05:11 CBC WITH AUTO DIFF [HEME] DAILY COMPREHENSIVE METABOLIC PN,CMP [CHEM] DAILY MAGNESIUM [CHEM] DAILY - Plan Plan:: 65-year-old male who presents with 5-day history of rectal bleeding which has progressively worsened. And is not taking any anticoagulants or NSAIDs. Patient does not drink alcohol. Denies any abdominal pain. Hemoglobin and hematocrit are stable at this time. Patient is not hypotensive or tachycardic. CT scan was essentially unremarkable. PLAN: History of COPD * O2 to keep sats between 88-92% * Albuterol nebs prn * RT to eval and treat Lower GI bleed * H&H Q4h * NPO * Consult general surgery * VS q4h; monitor for hypotension and tachycardia * Saline Lock History of spinal cord injury; Decubital ulcer * Reposition every 2 hours * Nursing staff to apply Mepilex to coccyx * PT/OT to eval and treat for strengthening as patient states he is still ambulatory Covid 19 * Remdesivir * Dexamethasone * RT to eval and treat * Incentive spirometer and flutter valve * D-dimer and C-reactive protein are pending * Baseline portable chest x-ray has been ordered Primary physician: pt needs DVT prophylaxis: contraindicated at this time due to GIB, pt placed on SCD's GI: Pepcid Code Status: Full Code Disposition: human resources services specialist and case management to assist with discharge planning. Patient will likely be here greater than 96 hours due to the treatment of Covid. 01/11/2021 65-year-old male who presented with a history of rectal bleeding. Nursing staff reports that there has been no bowel movements or rectal bleeding noted this morning. General surgeon, , did see the patient in consult last evening and recommended outpatient EGD and colonoscopy as the patient is stable and Covid test did come back positive. I did speak with Dr. Jameson today and he states that we can allow the patient to eat and drink. IV fluids were saline locked and the patient was placed on regular diet. Patient was given first dose of remdesivir last evening and will complete a 5-day course of treatment. He was also started on dexamethasone 6 mg daily. I have ordered incentive spirometer and flutter valve as well. Patient was titrated down to 1 L of oxygen per nasal cannula today and is doing well. As stated above, hemoglobins remained stable. Initially had been checking hemoglobins every 4 hours however we will check these every 12. Patient states that he did not sleep well last night so I ordered for him to receive melatonin at bedtime. Physical therapy has been ordered for wound care. They will also evaluate and treat for ambulation however the patient refused today as he does not have his cane at the hospital. Labs this a.m. reveal a WBC of 4.10, hemoglobin 16.3, hematocrit 51.1, platelet count 85,000, chemistry reveals a sodium of 139, potassium 4.4, chloride 103, anion gap 8.4, BUN 10, creatinine 0.7, GFR greater than 60, glucose 115, calcium 8.4, magnesium 1.8 As stated above, patient's platelet count is 85,000 which is down from 97,000 yesterday. Discussed the case with Dr. Lynch who recommends I order HIT panel as the patient was at [facility] and may have been receiving heparin while he was there. 01/12/2021 65-year-old gentleman who presented to the ER with a history of rectal bleeding and tested positive for Covid. Rectal bleeding has seemed to stop and H&H remained stable. Currently receiving remdesivir and dexamethasone treatment for Covid. Patient is irritable with staff. Has yet to ambulate with physical therapy due to the fact that he does not have his walker or to any shoes. Currently on 2 to 3 L of oxygen per nasal cannula. Has remained hemodynamically stable. Hematology reveals a WBC of 3.60, hemoglobin 15.7, hematocrit 47.6, platelet count 106, sodium 139, potassium 4.4, anion gap 8.4, BUN 19, creatinine 0.7, GFR greater than 60, glucose 148, calcium 8.3. D-dimer and C-reactive protein are pending. I have ordered a portable chest x-ray for baseline. Repeat lab studies in the a.m. plan on discharge to home once patient has completed 5- day course of remdesivir treatment. <Yobany Lynch - Last Filed: 01/12/21 16:18> - Patient Data Vitals - Most Recent: Last Vital Signs Temp 36.5 C 01/12/21 16:14 Pulse 77 01/12/21 16:14 Resp 16 01/12/21 16:14 BP 130/65 01/12/21 16:14 Pulse Ox 92 L 01/12/21 16:14 I&O - Last 24 Hours: Intake & Output 01/12/21 01/12/21 01/12/21 06:59 14:59 22:59 Intake Total 300 240 300 Balance 300 240 300 Lab Results Last 24 Hours: Laboratory Results - last 24 hr 01/12/21 01/12/21 01/12/21 Range/Units 05:25 05:25 13:22 WBC 3.60 L (4.23-9.07) K/mm3 RBC 4.89 (4.63-6.08) M/mm3 Hgb 15.7 (13.7-17.5) gm/dl Hct 47.6 (40.1-51.0) % MCV 97.3 H (79.0-92.2) fl MCH 32.1 (25.7-32.2) pg MCHC 33.0 (32.2-35.5) g/dl RDW Std Deviation 49.1 H (35.1-43.9) fL Plt Count 106 L (163-337) K/mm3 MPV 10.8 (9.4-12.3) fl Neut % (Auto) 70.2 H (34.0-67.9) % Lymph % (Auto) 16.4 L (21.8-53.1) % Greenlee % (Auto) 12.8 H (5.3-12.2) % Eos % (Auto) 0 L (0.8-7.0) Baso % (Auto) 0.3 (0.1-1.2) % Neut # (Auto) 2.53 (1.78-5.38) K/mm3 Lymph # (Auto) 0.59 L (1.32-3.57) K/mm3 Greenlee # (Auto) 0.46 (0.30-0.82) K/mm3 Eos # (Auto) 0.00 L (0.04-0.54) K/mm3 Baso # (Auto) 0.01 (0.01-0.08) K/mm3 D-Dimer, Quantitative 0.79 H (0.19-0.50) mg/L Sodium 139 (136-145) mEq/L Potassium 4.4 (3.5-5.1) mEq/L Chloride 104 (98-107) mEq/L Carbon Dioxide 31 (21-32) mEq/L Anion Gap 8.4 (5-15) BUN 19 H (7-18) mg/dL Creatinine 0.7 (0.7-1.3) mg/dL Est Cr Clr Drug Dosing 102.06 mL/min Estimated GFR (MDRD) > 60 (>60) mL/min BUN/Creatinine Ratio 27.1 H (14-18) Glucose 148 H (70-99) mg/dL Calcium 8.3 L (8.5-10.1) mg/dL Magnesium 1.9 (1.8-2.4) mg/dL Total Bilirubin 0.6 (0.2-1.0) mg/dL AST 12 L (15-37) U/L ALT 35 (16-63) U/L Alkaline Phosphatase 78 (46-116) U/L C-Reactive Protein (<1.0) mg/dL Total Protein 5.3 L (6.4-8.2) g/dl Albumin 2.4 L (3.4-5.0) g/dl Globulin 2.9 gm/dL Albumin/Globulin Ratio 0.8 L (1-2) Vitamin D 25-Hydroxy 25.7 L (30.0-100.0) ng/ml 01/12/21 Range/Units 13:22 WBC (4.23-9.07) K/mm3 RBC (4.63-6.08) M/mm3 Hgb (13.7-17.5) gm/dl Hct (40.1-51.0) % MCV (79.0-92.2) fl MCH (25.7-32.2) pg MCHC (32.2-35.5) g/dl RDW Std Deviation (35.1-43.9) fL Plt Count (163-337) K/mm3 MPV (9.4-12.3) fl Neut % (Auto) (34.0-67.9) % Lymph % (Auto) (21.8-53.1) % Greenlee % (Auto) (5.3-12.2) % Eos % (Auto) (0.8-7.0) Baso % (Auto) (0.1-1.2) % Neut # (Auto) (1.78-5.38) K/mm3 Lymph # (Auto) (1.32-3.57) K/mm3 Greenlee # (Auto) (0.30-0.82) K/mm3 Eos # (Auto) (0.04-0.54) K/mm3 Baso # (Auto) (0.01-0.08) K/mm3 D-Dimer, Quantitative (0.19-0.50) mg/L Sodium (136-145) mEq/L Potassium (3.5-5.1) mEq/L Chloride (98-107) mEq/L Carbon Dioxide (21-32) mEq/L Anion Gap (5-15) BUN (7-18) mg/dL Creatinine (0.7-1.3) mg/dL Est Cr Clr Drug Dosing mL/min Estimated GFR (MDRD) (>60) mL/min BUN/Creatinine Ratio (14-18) Glucose (70-99) mg/dL Calcium (8.5-10.1) mg/dL Magnesium (1.8-2.4) mg/dL Total Bilirubin (0.2-1.0) mg/dL AST (15-37) U/L ALT (16-63) U/L Alkaline Phosphatase (46-116) U/L C-Reactive Protein 5.3 H* (<1.0) mg/dL Total Protein (6.4-8.2) g/dl Albumin (3.4-5.0) g/dl Globulin gm/dL Albumin/Globulin Ratio (1-2) Vitamin D 25-Hydroxy (30.0-100.0) ng/ml Med Orders - Current: Current Medications Acetaminophen (Acetaminophen 325 Mg Tab) 650 mg PO Q4H PRN PRN Reason: Pain (Mild 1-3)/fever Last Admin: 01/11/21 12:11 Dose: 650 mg Documented by: Hydrocodone Bitart/Acetaminophen (Acetaminophen/Hydrocodone 325-5 Mg Tab) 1 tab PO Q4H PRN PRN Reason: Pain (moderate 4-6) Last Admin: 01/11/21 15:06 Dose: 1 tab Documented by: Albuterol/Ipratropium (Albuterol/Ipratropium 3.0-0.5 Mg/3 Ml Neb Soln) 3 ml NEB Q4H PRN PRN Reason: Shortness Of Breath/wheezing Baclofen (Baclofen 10 Mg Tab) 10 mg PO BEDTIME [facility] Last Admin: 01/11/21 21:13 Dose: 10 mg Documented by: Baclofen (Baclofen 10 Mg Tab) 10 mg PO QID [facility] Last Admin: 01/12/21 12:44 Dose: 10 mg Documented by: Dexamethasone (Dexamethasone 4 Mg Tab) 6 mg PO DAILY [facility] Last Admin: 01/12/21 09:20 Dose: 6 mg Documented by: Famotidine (Famotidine 20 Mg Tab) 20 mg PO DAILY [facility] Last Admin: 01/12/21 09:19 Dose: 20 mg Documented by: Fluticasone Propionate (Fluticasone Propionate Nasal [place] 16 Gm Bottle) 0 gm NASBOTH BID [facility] Last Admin: 01/12/21 09:20 Dose: 1 spray Documented by: Guaifenesin (Guaifenesin 600 Mg Tab.Er) 1,200 mg PO BID [facility] Last Admin: 01/12/21 09:19 Dose: 1,200 mg Documented by: Hydromorphone HCl (Hydromorphone 0.5 Mg/0.5 Ml Syringe) 0.25 mg IVPUSH Q2H PRN PRN Reason: Pain (severe 7-10) Remdesivir 100 mg/ Sodium (Chloride) 100 mls @ 100 mls/hr IV Q24H [facility] Stop: 01/14/21 19:59 Last Admin: 01/11/21 18:22 Dose: 100 mls/hr Documented by: Lidocaine (Lidocaine 4% 1 Each Patch) 1 each TOP DAILY [facility] Last Admin: 01/12/21 09:20 Dose: 1 each Documented by: Melatonin (Melatonin 3 Mg Tab) 6 mg PO BEDTIME [facility] Last Admin: 01/11/21 21:11 Dose: 6 mg Documented by: Miscellaneous Information (Remove Patch) 0 ea TRDERM Q24H [facility] Ondansetron HCl (Ondansetron 4 Mg/2 Ml Sdv) 4 mg IV Q4H PRN PRN Reason: Nausea/Vomiting Simethicone (Simethicone 80 Mg Tab.Chew) 80 mg PO Q6H PRN PRN Reason: Gas Sodium Chloride (Sodium Chloride 0.9% 10 Ml Syringe) 10 ml FLUSH ASDIRECTED PRN PRN Reason: Keep Vein Open Last Admin: 01/10/21 10:49 Dose: 10 ml Documented by: Tamsulosin HCl (Tamsulosin 0.4 Mg Cap.Er) 0.8 mg PO BEDTIME [facility] Last Admin: 01/11/21 21:12 Dose: 0.8 mg Documented by: Tiotropium [place] (Tiotropium [place] 4 Gm Inhalation [place] (2.5mcg/1 Dose; 10 Doses)) 0 gm INH DAILY [facility] Last Admin: 01/12/21 11:54 Dose: Not Given Documented by: Zinc Sulfate (Zinc Sulfate 220 Mg Cap) 220 mg PO DAILY [facility] Last Admin: 01/12/21 09:20 Dose: 220 mg Documented by: Discontinued Medications Baclofen (Baclofen 10 Mg Tab) 10 mg PO ONETIME ONE Stop: 01/11/21 00:50 Last Admin: 01/11/21 01:34 Dose: 10 mg Documented by: Famotidine (Famotidine 20 Mg/2 Ml Sdv) 20 mg IVPUSH BEDTIME [facility] Last Admin: 01/10/21 21:15 Dose: 20 mg Documented by: Sodium Chloride (Normal Saline) 1,000 mls @ 100 mls/hr IV ASDIRECTED [facility] Last Admin: 01/11/21 04:29 Dose: 100 mls/hr Documented by: Remdesivir 200 mg/ Sodium (Chloride) 250 mls @ 250 mls/hr IV ONETIME ONE Stop: 01/10/21 17:26 Last Admin: 01/10/21 18:49 Dose: 250 mls/hr Documented by: Influenza Virus Vaccine (Flu Vacc [id number](65up)/Mf59c/Pf 60 Mcg/0.5 Ml Syringe) 60 mcg IM .ONCE ONE Stop: 01/10/21 20:01 Iopamidol (Iopamidol 612 Mg/Ml 50 Ml Sdv) 50 ml IVPUSH ONETIME ONE Stop: 01/10/21 12:33 Last Admin: 01/10/21 12:58 Dose: 50 ml Documented by: Iopamidol (Iopamidol 612 Mg/Ml 100 Ml Bottle) 100 ml IVPUSH ONETIME ONE Stop: 01/10/21 12:33 Last Admin: 01/10/21 12:58 Dose: 100 ml Documented by: Sodium Chloride (Sodium Chloride 0.9% 10 Ml Syringe) 10 ml FLUSH ONETIME PRN PRN Reason: IV FLUSH Last Admin: 01/10/21 12:58 Dose: 10 ml Documented by: Temazepam (Temazepam 7.5 Mg Cap) 7.5 mg PO BEDTIME PRN PRN Reason: Sleep - Patient Data Lab Results Last 24 hrs: Laboratory Results - last 24 hr 01/12/21 01/12/21 01/12/21 Range/Units 05:25 05:25 13:22 WBC 3.60 L (4.23-9.07) K/mm3 RBC 4.89 (4.63-6.08) M/mm3 Hgb 15.7 (13.7-17.5) gm/dl Hct 47.6 (40.1-51.0) % MCV 97.3 H (79.0-92.2) fl MCH 32.1 (25.7-32.2) pg MCHC 33.0 (32.2-35.5) g/dl RDW Std Deviation 49.1 H (35.1-43.9) fL Plt Count 106 L (163-337) K/mm3 MPV 10.8 (9.4-12.3) fl Neut % (Auto) 70.2 H (34.0-67.9) % Lymph % (Auto) 16.4 L (21.8-53.1) % [place] % (Auto) 12.8 H (5.3-12.2) % Eos % (Auto) 0 L (0.8-7.0) Baso % (Auto) 0.3 (0.1-1.2) % Neut # (Auto) 2.53 (1.78-5.38) K/mm3 Lymph # (Auto) 0.59 L (1.32-3.57) K/mm3 [place] # (Auto) 0.46 (0.30-0.82) K/mm3 Eos # (Auto) 0.00 L (0.04-0.54) K/mm3 Baso # (Auto) 0.01 (0.01-0.08) K/mm3 D-Dimer, Quantitative 0.79 H (0.19-0.50) mg/L Sodium 139 (136-145) mEq/L Potassium 4.4 (3.5-5.1) mEq/L Chloride 104 (98-107) mEq/L Carbon Dioxide 31 (21-32) mEq/L Anion Gap 8.4 (5-15) BUN 19 H (7-18) mg/dL Creatinine 0.7 (0.7-1.3) mg/dL Est Cr Clr Drug Dosing 102.06 mL/min Estimated GFR (MDRD) > 60 (>60) mL/min BUN/Creatinine Ratio 27.1 H (14-18) Glucose 148 H (70-99) mg/dL Calcium 8.3 L (8.5-10.1) mg/dL Magnesium 1.9 (1.8-2.4) mg/dL Total Bilirubin 0.6 (0.2-1.0) mg/dL AST 12 L (15-37) U/L ALT 35 (16-63) U/L Alkaline Phosphatase 78 (46-116) U/L C-Reactive Protein (<1.0) mg/dL Total Protein 5.3 L (6.4-8.2) g/dl Albumin 2.4 L (3.4-5.0) g/dl Globulin 2.9 gm/dL Albumin/Globulin Ratio 0.8 L (1-2) Vitamin D 25-Hydroxy 25.7 L (30.0-100.0) ng/ml 01/12/21 Range/Units 13:22 WBC (4.23-9.07) K/mm3 RBC (4.63-6.08) M/mm3 Hgb (13.7-17.5) gm/dl Hct (40.1-51.0) % MCV (79.0-92.2) fl MCH (25.7-32.2) pg MCHC (32.2-35.5) g/dl RDW Std Deviation (35.1-43.9) fL Plt Count (163-337) K/mm3 MPV (9.4-12.3) fl Neut % (Auto) (34.0-67.9) % Lymph % (Auto) (21.8-53.1) % [place] % (Auto) (5.3-12.2) % Eos % (Auto) (0.8-7.0) Baso % (Auto) (0.1-1.2) % Neut # (Auto) (1.78-5.38) K/mm3 Lymph # (Auto) (1.32-3.57) K/mm3 [place] # (Auto) (0.30-0.82) K/mm3 Eos # (Auto) (0.04-0.54) K/mm3 Baso # (Auto) (0.01-0.08) K/mm3 D-Dimer, Quantitative (0.19-0.50) mg/L Sodium (136-145) mEq/L Potassium (3.5-5.1) mEq/L Chloride (98-107) mEq/L Carbon Dioxide (21-32) mEq/L Anion Gap (5-15) BUN (7-18) mg/dL Creatinine (0.7-1.3) mg/dL Est Cr Clr Drug Dosing mL/min Estimated GFR (MDRD) (>60) mL/min BUN/Creatinine Ratio (14-18) Glucose (70-99) mg/dL Calcium (8.5-10.1) mg/dL Magnesium (1.8-2.4) mg/dL Total Bilirubin (0.2-1.0) mg/dL AST (15-37) U/L ALT (16-63) U/L Alkaline Phosphatase (46-116) U/L C-Reactive Protein 5.3 H* (<1.0) mg/dL Total Protein (6.4-8.2) g/dl Albumin (3.4-5.0) g/dl Globulin gm/dL Albumin/Globulin Ratio (1-2) Vitamin D 25-Hydroxy (30.0-100.0) ng/ml Result Diagrams: 01/12/21 05:25 01/12/21 05:25 Sepsis Event Note - Focused Exam Vital Signs: Vital Signs Temp Pulse Resp BP Pulse Ox Pulse Ox 01/12/21 16:14 36.5 C 77 16 130/65 92 L 01/12/21 12:45 126/67 01/12/21 12:09 36.8 C 61 16 129/94 H 94 L 01/12/21 10:25 88 L 01/12/21 09:17 59 L 96 01/12/21 08:51 36.6 C 16 142/75 H 01/12/21 05:11 36.2 C 61 20 121/66 97 - My Orders Last 24 Hours: My Active Orders 01/11/21 15:27 RT Chest Physiotherapy [RC] ASDIRECTED 01/11/21 18:06 Antiembolic Devices [RC] PER UNIT ROUTINE SCD [Sequential Compression Device] [OM.PC] Routine 01/12/21 21:00 Remove Patch 0 ea TRDERM Q24H - Free Text/Narrative Note: I have seen and examined the patient independently of WILBUR Eng, and I have discussed the case with her. I have reviewed and agree with the plan of care as outlined by her. Please see orders.
--- NOTE | 2021-01-12 15:06 | CR ---
Chest: Frontal view of the chest was obtained. Comparison: Prior chest x-ray of 02/27/17. Right hemidiaphragm appears elevated. Difficult to exclude pleural effusion or consolidated lung. Mild increased density is seen within the left retrocardiac region. Upper lungs are clear. Heart is slightly enlarged. Upper mediastinum is within normal limits. Slight scoliosis is noted within the spine with scattered degenerative change. Impression: 1. Elevated right hemidiaphragm which may represent pleural effusion or consolidated lung. 2. Increased density is also noted within the left retrocardiac region presumably representing pneumonia. Findings may represent change from COVID disease. Diagnostic code #3
[2021-01-12] MEDS: REMDESIVIR 100 MG in Sodium Chloride 0.9% 100 ML IV SCH (18:24)
[2021-01-12] MEDS: Tamsulosin 0.4 MG Cap.ER PO SCH (21:02)
[2021-01-12] MEDS: Melatonin 3 MG Tab PO SCH (21:02)
--- NOTE | 2021-01-13 06:56 | PCM.PN ---
- General Info Date of Service: 01/13/21 Admission Dx/Problem (Free Text): Admission Diagnosis/Problem Admission Diagnosis/Problem GI bleed not requiring more than 4 units of blood in 24 hours, ICU, or surgery. Infection with Covid 19 Subjective Update: The patient is a 65-year-old gentleman who has a history of spinal cord injury had originally been admitted due to bright red bleeding per rectum. Since that time the patient has been found to be positive for COVID-19 and has been undergoing treatment for this. The patient has been somewhat angry and aggravated but he has denied any new pain or shortness of breath. He is curr ently on oxygen. The patient has been tolerating his diet. He is asked about his Pepcid as he has been having some stomach pain. Functional Status: Reports: Pain Controlled, Tolerating Diet. Denies: New Symptoms - Review of Systems General: Reports: No Symptoms HEENT: Reports: No Symptoms Pulmonary: Reports: Shortness of Breath Cardiovascular: Reports: No Symptoms Gastrointestinal: Reports: Abdominal Pain Genitourinary: Reports: No Symptoms Musculoskeletal: Reports: No Symptoms Skin: Reports: No Symptoms Neurological: Reports: No Symptoms Psychiatric: Reports: No Symptoms - Patient Data Vitals - Most Recent: Last Vital Signs Temp 36.3 C 01/13/21 03:14 Pulse 61 01/13/21 03:13 Resp 16 01/13/21 03:13 BP 113/73 01/13/21 03:13 Pulse Ox 96 01/13/21 03:13 Weight - Most Recent: 90.174 kg I&O - Last 24 Hours: Intake & Output 01/12/21 01/12/21 01/13/21 14:59 22:59 06:59 Intake Total 878 485 4226 Balance 080 085 5037 Lab Results Last 24 Hours: Laboratory Results - last 24 hr 01/12/21 01/12/21 01/12/21 Range/Units 05:25 13:22 13:22 D-Dimer, Quantitative 0.79 H (0.19-0.50) mg/L C-Reactive Protein 5.3 H* (<1.0) mg/dL Vitamin D 25-Hydroxy 25.7 L (30.0-100.0) ng/ml Med Orders - Current: Current Medications Acetaminophen (Acetaminophen 325 Mg Tab) 650 mg PO Q4H PRN PRN Reason: Pain (Mild 1-3)/fever Last Admin: 01/11/21 12:11 Dose: 650 mg Documented by: Hydrocodone Bitart/Acetaminophen (Acetaminophen/Hydrocodone 325-5 Mg Tab) 1 tab PO Q4H PRN PRN Reason: Pain (moderate 4-6) Last Admin: 01/11/21 15:06 Dose: 1 tab Documented by: Albuterol/Ipratropium (Albuterol/Ipratropium 3.0-0.5 Mg/3 Ml Neb Soln) 3 ml NEB Q4H PRN PRN Reason: Shortness Of Breath/wheezing Baclofen (Baclofen 10 Mg Tab) 10 mg PO BEDTIME [facility] Last Admin: 01/12/21 21:00 Dose: 10 mg Documented by: Baclofen (Baclofen 10 Mg Tab) 10 mg PO QID [facility] Last Admin: 01/12/21 21:00 Dose: 10 mg Documented by: Dexamethasone (Dexamethasone 4 Mg Tab) 6 mg PO DAILY [facility] Last Admin: 01/12/21 09:20 Dose: 6 mg Documented by: Famotidine (Famotidine 20 Mg Tab) 20 mg PO DAILY [facility] Last Admin: 01/12/21 09:19 Dose: 20 mg Documented by: Fluticasone Propionate (Fluticasone Propionate Nasal [place] 16 Gm Bottle) 0 gm NASBOTH BID [facility] Last Admin: 01/12/21 21:03 Dose: 1 spray Documented by: Guaifenesin (Guaifenesin 600 Mg Tab.Er) 1,200 mg PO BID [facility] Last Admin: 01/12/21 21:02 Dose: 1,200 mg Documented by: Hydromorphone HCl (Hydromorphone 0.5 Mg/0.5 Ml Syringe) 0.25 mg IVPUSH Q2H PRN PRN Reason: Pain (severe 7-10) Remdesivir 100 mg/ Sodium (Chloride) 100 mls @ 100 mls/hr IV Q24H [facility] Stop: 01/14/21 19:59 Last Admin: 01/12/21 18:24 Dose: 100 mls/hr Documented by: Lidocaine (Lidocaine 4% 1 Each Patch) 1 each TOP DAILY [facility] Last Admin: 01/12/21 09:20 Dose: 1 each Documented by: Melatonin (Melatonin 3 Mg Tab) 6 mg PO BEDTIME [facility] Last Admin: 01/12/21 21:02 Dose: 6 mg Documented by: Miscellaneous Information (Remove Patch) 0 ea TRDERM Q24H [facility] Last Admin: 01/12/21 21:04 Dose: 1 ea Documented by: Ondansetron HCl (Ondansetron 4 Mg/2 Ml Sdv) 4 mg IV Q4H PRN PRN Reason: Nausea/Vomiting Simethicone (Simethicone 80 Mg Tab.Chew) 80 mg PO Q6H PRN PRN Reason: Gas Sodium Chloride (Sodium Chloride 0.9% 10 Ml Syringe) 10 ml FLUSH ASDIRECTED PRN PRN Reason: Keep Vein Open Last Admin: 01/10/21 10:49 Dose: 10 ml Documented by: Tamsulosin HCl (Tamsulosin 0.4 Mg Cap.Er) 0.8 mg PO BEDTIME [facility] Last Admin: 01/12/21 21:02 Dose: 0.8 mg Documented by: Tiotropium [place] (Tiotropium [place] 4 Gm Inhalation [place] (2.5mcg/1 Dose; 10 Doses)) 0 gm INH DAILY [facility] Last Admin: 01/12/21 11:54 Dose: Not Given Documented by: Zinc Sulfate (Zinc Sulfate 220 Mg Cap) 220 mg PO DAILY [facility] Last Admin: 01/12/21 09:20 Dose: 220 mg Documented by: Discontinued Medications Baclofen (Baclofen 10 Mg Tab) 10 mg PO ONETIME ONE Stop: 01/11/21 00:50 Last Admin: 01/11/21 01:34 Dose: 10 mg Documented by: Famotidine (Famotidine 20 Mg/2 Ml Sdv) 20 mg IVPUSH BEDTIME [facility] Last Admin: 01/10/21 21:15 Dose: 20 mg Documented by: Sodium Chloride (Normal Saline) 1,000 mls @ 100 mls/hr IV ASDIRECTED [facility] Last Admin: 01/11/21 04:29 Dose: 100 mls/hr Documented by: Remdesivir 200 mg/ Sodium (Chloride) 250 mls @ 250 mls/hr IV ONETIME ONE Stop: 01/10/21 17:26 Last Admin: 01/10/21 18:49 Dose: 250 mls/hr Documented by: Influenza Virus Vaccine (Flu Vacc Vi1431(65up)/Mf59c/Pf 60 Mcg/0.5 Ml Syringe) 60 mcg IM .ONCE ONE Stop: 01/10/21 20:01 Iopamidol (Iopamidol 612 Mg/Ml 50 Ml Sdv) 50 ml IVPUSH ONETIME ONE Stop: 01/10/21 12:33 Last Admin: 01/10/21 12:58 Dose: 50 ml Documented by: Iopamidol (Iopamidol 612 Mg/Ml 100 Ml Bottle) 100 ml IVPUSH ONETIME ONE Stop: 01/10/21 12:33 Last Admin: 01/10/21 12:58 Dose: 100 ml Documented by: Sodium Chloride (Sodium Chloride 0.9% 10 Ml Syringe) 10 ml FLUSH ONETIME PRN PRN Reason: IV FLUSH Last Admin: 01/10/21 12:58 Dose: 10 ml Documented by: Temazepam (Temazepam 7.5 Mg Cap) 7.5 mg PO BEDTIME PRN PRN Reason: Sleep - Exam Quality Assessment: Supplemental Oxygen, DVT Prophylaxis General: Alert, Oriented, Cooperative, No Acute Distress HEENT: Pupils Equal, Pupils Reactive, EOMI Neck: Supple, Trachea Midline Lungs: Clear to Auscultation, Normal Respiratory Effort Cardiovascular: Regular Rate, Regular Rhythm GI/Abdominal Exam: Normal Bowel Sounds, Soft, Non-Tender, No Distention (Male) Exam: Deferred Back Exam: No: Normal Inspection (Spinal injury), Full Range of Motion Extremities: Normal Inspection, No Pedal Edema. No: Normal Range of Motion (Decreased due to spinal injury) Skin: Warm, Dry, Intact Neurological: No New Focal Deficit Psy/Mental Status: Alert, Normal Affect, Normal Mood - Patient Data Lab Results Last 24 hrs: Laboratory Results - last 24 hr 01/12/21 01/12/21 01/12/21 Range/Units 05:25 13:22 13:22 D-Dimer, Quantitative 0.79 H (0.19-0.50) mg/L C-Reactive Protein 5.3 H* (<1.0) mg/dL Vitamin D 25-Hydroxy 25.7 L (30.0-100.0) ng/ml Result Diagrams: 01/13/21 06:39 01/13/21 06:39 Sepsis Event Note - Evaluation Sepsis Screening Result: No Definite Risk - Focused Exam Vital Signs: Vital Signs Temp Pulse Resp BP Pulse Ox Pulse Ox 01/13/21 03:14 36.3 C 01/13/21 03:13 61 16 113/73 96 01/12/21 23:47 36.4 C 76 20 124/67 95 01/12/21 21:08 92 L 01/12/21 20:59 36.6 C 74 16 140/106 H 94 L - Problem List & Annotations (1) COVID-19 SNOMED Code(s): 844420920 Code(s): U07.1 - COVID-19 Status: Acute Priority: High Current Visit: Yes (2) Decubital ulcer SNOMED Code(s): 142704034 Code(s): L89.90 - PRESSURE ULCER OF UNSPECIFIED SITE, UNSPECIFIED STAGE Status: Acute Priority: High Current Visit: Yes Qualifiers: Pressure injury location: sacral region Pressure injury stage: unspecified pressure injury stage Qualified Code(s): L89.159 - Pressure ulcer of sacral region, unspecified stage (3) Lower GI bleed SNOMED Code(s): 95194082 Code(s): K92.2 - GASTROINTESTINAL HEMORRHAGE, UNSPECIFIED Status: Acute Priority: High Current Visit: Yes (4) SCIWORA (spinal cord injury without radiographic abnormality) SNOMED Code(s): 15154074 Code(s): FLK6305 - Status: Chronic Priority: High Current Visit: Yes (5) Acute and chronic respiratory failure SNOMED Code(s): 16138026 Code(s): J96.20 - ACUTE AND CHR RESP FAILURE, UNSP W HYPOXIA OR HYPERCAPNIA Status: Acute Priority: High Current Visit: Yes Qualifiers: Respiratory failure complication: hypoxia Qualified Code(s): J96.21 - Acute and chronic respiratory failure with hypoxia - Problem List Review Problem List Initiated/Reviewed/Updated: Yes - My Orders Last 24 Hours: My Active Orders 01/12/21 21:00 Remove Patch 0 ea TRDERM Q24H - Plan Plan:: 65-year-old male who presents with 5-day history of rectal bleeding which has progressively worsened. And is not taking any anticoagulants or NSAIDs. Patient does not drink alcohol. Denies any abdominal pain. Hemoglobin and hematocrit are stable at this time. Patient is not hypotensive or tachycardic. CT scan was essentially unremarkable. PLAN: History of COPD * O2 to keep sats between 88-92% * Albuterol nebs prn * RT to eval and treat Lower GI bleed * H&H Q4h * NPO * Consult general surgery * VS q4h; monitor for hypotension and tachycardia * Saline Lock History of spinal cord injury; Decubital ulcer * Reposition every 2 hours * Nursing staff to apply Mepilex to coccyx * PT/OT to eval and treat for strengthening as patient states he is still ambulatory Covid 19 * Remdesivir * Dexamethasone * RT to eval and treat * Incentive spirometer and flutter valve * D-dimer and C-reactive protein are pending * Baseline portable chest x-ray has been ordered Primary physician: pt needs DVT prophylaxis: contraindicated at this time due to GIB, pt placed on SCD's GI: Pepcid Code Status: Full Code Disposition: phlebotomy services technician and case management to assist with discharge planning. Patient will likely be here greater than 96 hours due to the treatment of Covid. 01/11/2021 65-year-old male who presented with a history of rectal bleeding. Nursing staff reports that there has been no bowel movements or rectal bleeding noted this morning. General surgeon, , did see the patient in consult last evening and recommended outpatient EGD and colonoscopy as the patient is stable and Covid test did come back positive. I did speak with Dr. Jameson today and he states that we can allow the patient to eat and drink. IV fluids were saline locked and the patient was placed on regular diet. Patient was given first dose of remdesivir last evening and will complete a 5-day course of treatment. He was also started on dexamethasone 6 mg daily. I have ordered incentive spirometer and flutter valve as well. Patient was titrated down to 1 L of oxygen per nasal cannula today and is doing well. As stated above, hemoglobins remained stable. Initially had been checking hemoglobins every 4 hours however we will check these every 12. Patient states that he did not sleep well last night so I ordered for him to receive melatonin at bedtime. Physical therapy has been ordered for wound care. They will also evaluate and treat for ambulation however the patient refused today as he does not have his cane at the hospital. Labs this a.m. reveal a WBC of 4.10, hemoglobin 16.3, hematocrit 51.1, platelet count 85,000, chemistry reveals a sodium of 139, potassium 4.4, chloride 103, anion gap 8.4, BUN 10, creatinine 0.7, GFR greater than 60, glucose 115, calcium 8.4, magnesium 1.8 As stated above, patient's platelet count is 85,000 which is down from 97,000 yesterday. Discussed the case with Dr. Lynch who recommends I order HIT panel as the patient was at [facility] and may have been receiving heparin while he was there. 01/12/2021 65-year-old gentleman who presented to the ER with a history of rectal bleeding and tested positive for Covid. Rectal bleeding has seemed to stop and H&H remained stable. Currently receiving remdesivir and dexamethasone treatment for Covid. Patient is irritable with staff. Has yet to ambulate with physical therapy due to the fact that he does not have his walker or to any shoes. Currently on 2 to 3 L of oxygen per nasal cannula. Has remained hemodynamically stable. Hematology reveals a WBC of 3.60, hemoglobin 15.7, hematocrit 47.6, platelet count 106, sodium 139, potassium 4.4, anion gap 8.4, BUN 19, creatinine 0.7, GFR greater than 60, glucose 148, calcium 8.3. D-dimer and C-reactive protein are pending. I have ordered a portable chest x-ray for baseline. Repeat lab studies in the a.m. plan on discharge to home once patient has completed 5- day course of remdesivir treatment. 01/13/2021 The patient is a 65-year-old gentleman who was originally admitted secondary to lower GI bleed although this is essentially resolved. His hemoglobin has remained stable. The patient does have his overall recovery confounded with new Covid 19 infection. The patient will be kept on oxygen titrated to keep his saturations around 92%.. This will be continued. I have ordered repeat laboratory studies for the morning. Remdesivir is to be continued. The patient also has been on dexamethasone 6 mg p.o. daily this is be continued for at least 5 more days. I reviewed the patient's medications and he is currently on Pepcid for his stomach pain and this will be continued. He is also anticoagulated with the use of heparin 5000 units subcu every 8 hours. The patient should be appropriate for discharge after completion of his medications.
[2021-01-13] MEDS: Famotidine 20 MG Tab PO SCH (08:24)
[2021-01-13] MEDS: Zinc Sulfate 220 MG Cap PO SCH (08:24)
[2021-01-13] MEDS: guaiFENesin 600 MG Tab.ER PO SCH ×2 (08:25→21:48)
[2021-01-13] MEDS: Baclofen 10 MG Tab PO SCH ×5 (08:25→21:48)
[2021-01-13] MEDS: Dexamethasone 4 MG Tab PO SCH (08:31)
[2021-01-13] MEDS: Heparin Sodium 5,000 Units/ML Vial SUBCUT SCH ×3 (08:32→23:20)
[2021-01-13] MEDS: Lidocaine 4% 1 each Patch TOP SCH (08:32)
[2021-01-13] MEDS: Fluticasone Propionate Nasal Spray 16 GM Bottle NASBOTH SCH ×2 (08:33→21:48)
[2021-01-13] MEDS: Tiotropium Bromide 4 GM Inhalation Spray (2.5mcg/1 dose; 10 doses) INH SCH (08:59)
[2021-01-13] MEDS: REMDESIVIR 100 MG in Sodium Chloride 0.9% 100 ML IV SCH (18:53)
[2021-01-13] MEDS: Tamsulosin 0.4 MG Cap.ER PO SCH (21:48)
[2021-01-13] MEDS: Melatonin 3 MG Tab PO SCH (21:48)
[2021-01-14] MEDS: Tiotropium Bromide 4 GM Inhalation Spray (2.5mcg/1 dose; 10 doses) INH SCH (08:56)
--- NOTE | 2021-01-14 08:56 | PCM.PN ---
- General Info Date of Service: 01/14/21 Admission Dx/Problem (Free Text): Admission Diagnosis/Problem Admission Diagnosis/Problem GI bleed not requiring more than 4 units of blood in 24 hours, ICU, or surgery. Infection with Covid 19 Subjective Update: The patient is a 65-year-old gentleman who was admitted to acute hospitalization on January 10, 2021. He was initially admitted secondary to low volume GI bleed not requiring blood transfusion. He was diagnosed with COVID-19. The patient today says that he is doing okay. He has stomach pain and some bloating. The patient's main concern also was that after eating he has to go to the bathroom and he cannot control his bowels. No new pain. The patient has been retained in acute hospitalization greater than 96 hours secondary to his COVID-19 treatment. Functional Status: Reports: Pain Controlled, Tolerating Diet. Denies: New Symptoms - Review of Systems General: Reports: Fatigue HEENT: Reports: No Symptoms Pulmonary: Reports: No Symptoms Cardiovascular: Reports: No Symptoms Gastrointestinal: Reports: Abdominal Pain Genitourinary: Reports: No Symptoms Musculoskeletal: Reports: No Symptoms Skin: Reports: No Symptoms Neurological: Reports: No Symptoms Psychiatric: Reports: No Symptoms - Patient Data Vitals - Most Recent: Last Vital Signs Temp 36.4 C 01/14/21 03:15 Pulse 65 01/14/21 03:15 Resp 20 01/14/21 03:15 BP 111/58 L 01/14/21 03:15 Pulse Ox 93 L 01/14/21 03:15 Weight - Most Recent: 86.092 kg I&O - Last 24 Hours: Intake & Output 01/13/21 01/14/21 01/14/21 22:59 06:59 14:59 Intake Total 420 1200 Output Total 4 Balance 420 1196 Lab Results Last 24 Hours: Laboratory Results - last 24 hr 01/14/21 01/14/21 Range/Units 05:20 05:20 WBC 4.89 (4.23-9.07) K/mm3 RBC 4.86 (4.63-6.08) M/mm3 Hgb 15.6 (13.7-17.5) gm/dl Hct 47.6 (40.1-51.0) % MCV 97.9 H (79.0-92.2) fl MCH 32.1 (25.7-32.2) pg MCHC 32.8 (32.2-35.5) g/dl RDW Std Deviation 49.8 H (35.1-43.9) fL Plt Count 113 L (163-337) K/mm3 MPV 10.9 (9.4-12.3) fl Neut % (Auto) 70.8 H (34.0-67.9) % Lymph % (Auto) 18.0 L (21.8-53.1) % [place] % (Auto) 10.6 (5.3-12.2) % Eos % (Auto) 0.2 L (0.8-7.0) Baso % (Auto) 0.0 L (0.1-1.2) % Neut # (Auto) 3.46 (1.78-5.38) K/mm3 Lymph # (Auto) 0.88 L (1.32-3.57) K/mm3 [place] # (Auto) 0.52 (0.30-0.82) K/mm3 Eos # (Auto) 0.01 L (0.04-0.54) K/mm3 Baso # (Auto) 0.00 L (0.01-0.08) K/mm3 Manual Slide Review Not Reportable Sodium 139 (136-145) mEq/L Potassium 4.3 (3.5-5.1) mEq/L Chloride 101 (98-107) mEq/L Carbon Dioxide 31 (21-32) mEq/L Anion Gap 11.3 (5-15) BUN 26 H (7-18) mg/dL Creatinine 0.7 (0.7-1.3) mg/dL Est Cr Clr Drug Dosing 102.06 mL/min Estimated GFR (MDRD) > 60 (>60) mL/min BUN/Creatinine Ratio 37.1 H (14-18) Glucose 197 H (70-99) mg/dL Calcium 8.0 L (8.5-10.1) mg/dL Magnesium 1.9 (1.8-2.4) mg/dL Total Bilirubin 0.4 (0.2-1.0) mg/dL AST 19 (15-37) U/L ALT 39 (16-63) U/L Alkaline Phosphatase 71 (46-116) U/L Total Protein 5.1 L (6.4-8.2) g/dl Albumin 2.4 L (3.4-5.0) g/dl Globulin 2.7 gm/dL Albumin/Globulin Ratio 0.9 L (1-2) Med Orders - Current: Current Medications Acetaminophen (Acetaminophen 325 Mg Tab) 650 mg PO Q4H PRN PRN Reason: Pain (Mild 1-3)/fever Last Admin: 01/11/21 12:11 Dose: 650 mg Documented by: Hydrocodone Bitart/Acetaminophen (Acetaminophen/Hydrocodone 325-5 Mg Tab) 1 tab PO Q4H PRN PRN Reason: Pain (moderate 4-6) Last Admin: 01/11/21 15:06 Dose: 1 tab Documented by: Albuterol/Ipratropium (Albuterol/Ipratropium 3.0-0.5 Mg/3 Ml Neb Soln) 3 ml NEB Q4H PRN PRN Reason: Shortness Of Breath/wheezing Baclofen (Baclofen 10 Mg Tab) 10 mg PO BEDTIME [facility] Last Admin: 01/13/21 21:48 Dose: 10 mg Documented by: Baclofen (Baclofen 10 Mg Tab) 10 mg PO QID [facility] Last Admin: 01/13/21 21:48 Dose: 10 mg Documented by: Dexamethasone (Dexamethasone 4 Mg Tab) 6 mg PO DAILY [facility] Last Admin: 01/13/21 08:31 Dose: 6 mg Documented by: Famotidine (Famotidine 20 Mg Tab) 20 mg PO DAILY [facility] Last Admin: 01/13/21 08:24 Dose: 20 mg Documented by: Fluticasone Propionate (Fluticasone Propionate Nasal [place] 16 Gm Bottle) 0 gm NASBOTH BID [facility] Last Admin: 01/13/21 21:48 Dose: 1 spray Documented by: Guaifenesin (Guaifenesin 600 Mg Tab.Er) 1,200 mg PO BID [facility] Last Admin: 01/13/21 21:48 Dose: 1,200 mg Documented by: Heparin Sodium (Porcine) (Heparin Sodium 5,000 Units/Ml Vial) 5,000 units SUBCUT Q8H [facility] Last Admin: 01/13/21 23:20 Dose: 5,000 units Documented by: Hydromorphone HCl (Hydromorphone 0.5 Mg/0.5 Ml Syringe) 0.25 mg IVPUSH Q2H PRN PRN Reason: Pain (severe 7-10) Remdesivir 100 mg/ Sodium (Chloride) 100 mls @ 100 mls/hr IV Q24H [facility] Stop: 01/14/21 19:59 Last Admin: 01/13/21 18:53 Dose: 100 mls/hr Documented by: Lidocaine (Lidocaine 4% 1 Each Patch) 1 each TOP DAILY [facility] Last Admin: 01/13/21 08:32 Dose: 1 each Documented by: Melatonin (Melatonin 3 Mg Tab) 6 mg PO BEDTIME [facility] Last Admin: 01/13/21 21:48 Dose: 6 mg Documented by: Miscellaneous Information (Remove Patch) 0 ea TRDERM Q24H [facility] Last Admin: 01/13/21 21:48 Dose: 1 ea Documented by: Ondansetron HCl (Ondansetron 4 Mg/2 Ml Sdv) 4 mg IV Q4H PRN PRN Reason: Nausea/Vomiting Simethicone (Simethicone 80 Mg Tab.Chew) 80 mg PO Q6H PRN PRN Reason: Gas Sodium Chloride (Sodium Chloride 0.9% 10 Ml Syringe) 10 ml FLUSH ASDIRECTED PRN PRN Reason: Keep Vein Open Last Admin: 01/10/21 10:49 Dose: 10 ml Documented by: Tamsulosin HCl (Tamsulosin 0.4 Mg Cap.Er) 0.8 mg PO BEDTIME [facility] Last Admin: 01/13/21 21:48 Dose: 0.8 mg Documented by: Tiotropium [place] (Tiotropium [place] 4 Gm Inhalation [place] (2.5mcg/1 Dose; 10 Doses)) 0 gm INH DAILY [facility] Last Admin: 01/13/21 08:59 Dose: 2 puff Documented by: Zinc Sulfate (Zinc Sulfate 220 Mg Cap) 220 mg PO DAILY [facility] Last Admin: 01/13/21 08:24 Dose: 220 mg Documented by: Discontinued Medications Baclofen (Baclofen 10 Mg Tab) 10 mg PO ONETIME ONE Stop: 01/11/21 00:50 Last Admin: 01/11/21 01:34 Dose: 10 mg Documented by: Famotidine (Famotidine 20 Mg/2 Ml Sdv) 20 mg IVPUSH BEDTIME [facility] Last Admin: 01/10/21 21:15 Dose: 20 mg Documented by: Sodium Chloride (Normal Saline) 1,000 mls @ 100 mls/hr IV ASDIRECTED [facility] Last Admin: 01/11/21 04:29 Dose: 100 mls/hr Documented by: Remdesivir 200 mg/ Sodium (Chloride) 250 mls @ 250 mls/hr IV ONETIME ONE Stop: 01/10/21 17:26 Last Admin: 01/10/21 18:49 Dose: 250 mls/hr Documented by: Influenza Virus Vaccine (Flu Vacc Sd3689(65up)/Mf59c/Pf 60 Mcg/0.5 Ml Syringe) 60 mcg IM .ONCE ONE Stop: 01/10/21 20:01 Iopamidol (Iopamidol 612 Mg/Ml 50 Ml Sdv) 50 ml IVPUSH ONETIME ONE Stop: 01/10/21 12:33 Last Admin: 01/10/21 12:58 Dose: 50 ml Documented by: Iopamidol (Iopamidol 612 Mg/Ml 100 Ml Bottle) 100 ml IVPUSH ONETIME ONE Stop: 01/10/21 12:33 Last Admin: 01/10/21 12:58 Dose: 100 ml Documented by: Sodium Chloride (Sodium Chloride 0.9% 10 Ml Syringe) 10 ml FLUSH ONETIME PRN PRN Reason: IV FLUSH Last Admin: 01/10/21 12:58 Dose: 10 ml Documented by: Temazepam (Temazepam 7.5 Mg Cap) 7.5 mg PO BEDTIME PRN PRN Reason: Sleep - Exam Quality Assessment: Supplemental Oxygen, DVT Prophylaxis General: Alert, Oriented, Cooperative, No Acute Distress HEENT: Pupils Equal, Pupils Reactive, EOMI Neck: Supple, Trachea Midline Lungs: Clear to Auscultation, Normal Respiratory Effort Cardiovascular: Regular Rate, Regular Rhythm GI/Abdominal Exam: Normal Bowel Sounds, Soft, No Distention, Tender. No: Guarding, Rigid, Rebound (Male) Exam: Deferred Back Exam: No: Normal Inspection, Full Range of Motion (Incomplete quadriplegia) Extremities: No: Normal Inspection (Incomplete quadriplegia), Normal Range of Motion Skin: Warm, Dry, Intact Neurological: No New Focal Deficit Psy/Mental Status: Alert, Normal Affect, Normal Mood - Patient Data Lab Results Last 24 hrs: Laboratory Results - last 24 hr 01/14/21 01/14/21 Range/Units 05:20 05:20 WBC 4.89 (4.23-9.07) K/mm3 RBC 4.86 (4.63-6.08) M/mm3 Hgb 15.6 (13.7-17.5) gm/dl Hct 47.6 (40.1-51.0) % MCV 97.9 H (79.0-92.2) fl MCH 32.1 (25.7-32.2) pg MCHC 32.8 (32.2-35.5) g/dl RDW Std Deviation 49.8 H (35.1-43.9) fL Plt Count 113 L (163-337) K/mm3 MPV 10.9 (9.4-12.3) fl Neut % (Auto) 70.8 H (34.0-67.9) % Lymph % (Auto) 18.0 L (21.8-53.1) % [place] % (Auto) 10.6 (5.3-12.2) % Eos % (Auto) 0.2 L (0.8-7.0) Baso % (Auto) 0.0 L (0.1-1.2) % Neut # (Auto) 3.46 (1.78-5.38) K/mm3 Lymph # (Auto) 0.88 L (1.32-3.57) K/mm3 [place] # (Auto) 0.52 (0.30-0.82) K/mm3 Eos # (Auto) 0.01 L (0.04-0.54) K/mm3 Baso # (Auto) 0.00 L (0.01-0.08) K/mm3 Manual Slide Review Not Reportable Sodium 139 (136-145) mEq/L Potassium 4.3 (3.5-5.1) mEq/L Chloride 101 (98-107) mEq/L Carbon Dioxide 31 (21-32) mEq/L Anion Gap 11.3 (5-15) BUN 26 H (7-18) mg/dL Creatinine 0.7 (0.7-1.3) mg/dL Est Cr Clr Drug Dosing 102.06 mL/min Estimated GFR (MDRD) > 60 (>60) mL/min BUN/Creatinine Ratio 37.1 H (14-18) Glucose 197 H (70-99) mg/dL Calcium 8.0 L (8.5-10.1) mg/dL Magnesium 1.9 (1.8-2.4) mg/dL Total Bilirubin 0.4 (0.2-1.0) mg/dL AST 19 (15-37) U/L ALT 39 (16-63) U/L Alkaline Phosphatase 71 (46-116) U/L Total Protein 5.1 L (6.4-8.2) g/dl Albumin 2.4 L (3.4-5.0) g/dl Globulin 2.7 gm/dL Albumin/Globulin Ratio 0.9 L (1-2) Result Diagrams: 01/14/21 05:20 01/14/21 05:20 Sepsis Event Note - Evaluation Sepsis Screening Result: No Definite Risk - Focused Exam Vital Signs: Vital Signs Temp Pulse Resp BP Pulse Ox 01/14/21 03:15 36.4 C 65 20 111/58 L 93 L 01/13/21 23:23 36.4 C 72 20 117/74 94 L - Problem List & Annotations (1) COVID-19 SNOMED Code(s): 501178024 Code(s): U07.1 - COVID-19 Status: Acute Priority: High Current Visit: Yes (2) Decubital ulcer SNOMED Code(s): 371596427 Code(s): L89.90 - PRESSURE ULCER OF UNSPECIFIED SITE, UNSPECIFIED STAGE Status: Acute Priority: High Current Visit: Yes Qualifiers: Pressure injury location: sacral region Pressure injury stage: unspecified pressure injury stage Qualified Code(s): L89.159 - Pressure ulcer of sacral region, unspecified stage (3) Lower GI bleed SNOMED Code(s): 09806801 Code(s): K92.2 - GASTROINTESTINAL HEMORRHAGE, UNSPECIFIED Status: Acute Priority: High Current Visit: Yes (4) SCIWORA (spinal cord injury without radiographic abnormality) SNOMED Code(s): 55825613 Code(s): PVO4648 - Status: Chronic Priority: High Current Visit: Yes (5) Acute and chronic respiratory failure SNOMED Code(s): 11391652 Code(s): J96.20 - ACUTE AND CHR RESP FAILURE, UNSP W HYPOXIA OR HYPERCAPNIA Status: Acute Priority: High Current Visit: Yes Qualifiers: Respiratory failure complication: hypoxia Qualified Code(s): J96.21 - Acute and chronic respiratory failure with hypoxia - Problem List Review Problem List Initiated/Reviewed/Updated: Yes - Plan Plan:: 65-year-old male who presents with 5-day history of rectal bleeding which has progressively worsened. And is not taking any anticoagulants or NSAIDs. Patient does not drink alcohol. Denies any abdominal pain. Hemoglobin and hematocrit are stable at this time. Patient is not hypotensive or tachycardic. CT scan was essentially unremarkable. PLAN: History of COPD * O2 to keep sats between 88-92% * Albuterol nebs prn * RT to eval and treat Lower GI bleed * H&H Q4h * NPO * Consult general surgery * VS q4h; monitor for hypotension and tachycardia * Saline Lock History of spinal cord injury; Decubital ulcer * Reposition every 2 hours * Nursing staff to apply Mepilex to coccyx * PT/OT to eval and treat for strengthening as patient states he is still ambulatory Covid 19 * Remdesivir * Dexamethasone * RT to eval and treat * Incentive spirometer and flutter valve * D-dimer and C-reactive protein are pending * Baseline portable chest x-ray has been ordered Primary physician: pt needs DVT prophylaxis: contraindicated at this time due to GIB, pt placed on SCD's GI: Pepcid Code Status: Full Code Disposition: catering convention services manager and case management to assist with discharge planning. Patient will likely be here greater than 96 hours due to the treatment of Covid. 01/11/2021 65-year-old male who presented with a history of rectal bleeding. Nursing staff reports that there has been no bowel movements or rectal bleeding noted this morning. General surgeon, , did see the patient in consult last evening and recommended outpatient EGD and colonoscopy as the patient is stable and Covid test did come back positive. I did speak with Dr. Jameson today and he states that we can allow the patient to eat and drink. IV fluids were saline locked and the patient was placed on regular diet. Patient was given first dose of remdesivir last evening and will complete a 5-day course of treatment. He was also started on dexamethasone 6 mg daily. I have ordered incentive spirometer and flutter valve as well. Patient was titrated down to 1 L of oxygen per nasal cannula today and is doing well. As stated above, hemoglobins remained stable. Initially had been checking hemoglobins every 4 hours however we will check these every 12. Patient states that he did not sleep well last night so I ordered for him to receive melatonin at bedtime. Physical therapy has been ordered for wound care. They will also evaluate and treat for ambulation however the patient refused today as he does not have his cane at the hospital. Labs this a.m. reveal a WBC of 4.10, hemoglobin 16.3, hematocrit 51.1, platelet count 85,000, chemistry reveals a sodium of 139, potassium 4.4, chloride 103, anion gap 8.4, BUN 10, creatinine 0.7, GFR greater than 60, glucose 115, calcium 8.4, magnesium 1.8 As stated above, patient's platelet count is 85,000 which is down from 97,000 yesterday. Discussed the case with Dr. Lynch who recommends I order HIT panel as the patient was at [facility] and may have been receiving heparin while he was there. 01/12/2021 65-year-old gentleman who presented to the ER with a history of rectal bleeding and tested positive for Covid. Rectal bleeding has seemed to stop and H&H remained stable. Currently receiving remdesivir and dexamethasone treatment for Covid. Patient is irritable with staff. Has yet to ambulate with physical therapy due to the fact that he does not have his walker or to any shoes. Currently on 2 to 3 L of oxygen per nasal cannula. Has remained hemodynamically stable. Hematology reveals a WBC of 3.60, hemoglobin 15.7, hematocrit 47.6, platelet count 106, sodium 139, potassium 4.4, anion gap 8.4, BUN 19, creatinine 0.7, GFR greater than 60, glucose 148, calcium 8.3. D-dimer and C-reactive protein are pending. I have ordered a portable chest x-ray for baseline. Repeat lab studies in the a.m. plan on discharge to home once patient has completed 5- day course of remdesivir treatment. 01/13/2021 The patient is a 65-year-old gentleman who was originally admitted secondary to lower GI bleed although this is essentially resolved. His hemoglobin has remained stable. The patient does have his overall recovery confounded with new Covid 19 infection. The patient will be kept on oxygen titrated to keep his saturations around 92%.. This will be continued. I have ordered repeat laboratory studies for the morning. Remdesivir is to be continued. The patient also has been on dexamethasone 6 mg p.o. daily this is be continued for at least 5 more days. I reviewed the patient's medications and he is currently on Pepcid for his stomach pain and this will be continued. He is also anticoagulated with the use of heparin 5000 units subcu every 8 hours. The patient should be roseann ropriate for discharge after completion of his medications. 01/14/2021 Patient is a 65-year-old gentleman who will remain in hospitalization until completion of treatment for his COVID-19. He will likely be appropriate for discharge tomorrow. The patient's oxygen has been titrated down. His oxygen saturations were kept around 92%. For now the patient's remdesivir will continue. He is also anticoagulated with heparin 5000 units subcu every 8 hours. The patient's famotidine has been continued and I have also ordered the addition of Protonix to help with the patient's reflux. I have ordered repeat laboratory studies for the morning. Wound care will continue for the patient's sacral decubitus.
[2021-01-14] MEDS: Lidocaine 4% 1 each Patch TOP SCH (09:05)
[2021-01-14] MEDS: Zinc Sulfate 220 MG Cap PO SCH (09:05)
[2021-01-14] MEDS: Famotidine 20 MG Tab PO SCH (09:07)
[2021-01-14] MEDS: Dexamethasone 4 MG Tab PO SCH (09:17)
[2021-01-14] MEDS: Baclofen 10 MG Tab PO SCH ×5 (09:17→20:40)
[2021-01-14] MEDS: guaiFENesin 600 MG Tab.ER PO SCH ×2 (09:17→20:39)
[2021-01-14] MEDS: Heparin Sodium 5,000 Units/ML Vial SUBCUT SCH ×3 (09:17→23:19)
[2021-01-14] MEDS: Fluticasone Propionate Nasal Spray 16 GM Bottle NASBOTH SCH ×2 (09:17→20:39)
[2021-01-14] MEDS: Pantoprazole 40 MG Tab.CR PO SCH (12:41)
[2021-01-14] MEDS: REMDESIVIR 100 MG in Sodium Chloride 0.9% 100 ML IV SCH (18:01)
[2021-01-14] MEDS: Tamsulosin 0.4 MG Cap.ER PO SCH (20:38)
[2021-01-14] MEDS: Acetaminophen 325 MG Tab PO PRN (23:19)
[2021-01-14] MEDS: Melatonin 3 MG Tab PO SCH (23:21)
[2021-01-15] MEDS: Acetaminophen/HYDROcodone 325-5 MG Tab PO PRN (01:55)
--- NOTE | 2021-01-15 07:50 | PCM.DCSUM1 ---
Discharge Summary - Hospital Course HPI Initial Comments: The patient was originally admitted secondary to low volume GI bleed and was found to be COVID-19 positive. Diagnosis: Stroke: No - Discharge Data Discharge Date: 01/15/21 Discharge Disposition: Home, Self-Care 01 Condition: Good - Referral to Home Health Primary Care Physician: PCP None - Discharge Diagnosis/Problem(s) (1) COVID-19 SNOMED Code(s): 086800157 ICD Code: U07.1 - COVID-19 Status: Resolved Priority: High Current Visit: Yes (2) Decubital ulcer SNOMED Code(s): 916734734 ICD Code: L89.90 - PRESSURE ULCER OF UNSPECIFIED SITE, UNSPECIFIED STAGE Status: Chronic Priority: High Current Visit: Yes Qualifiers: Pressure injury location: sacral region Pressure injury stage: unspecified pressure injury stage Qualified Code(s): L89.159 - Pressure ulcer of sacral region, unspecified stage (3) Lower GI bleed SNOMED Code(s): 34195670 ICD Code: K92.2 - GASTROINTESTINAL HEMORRHAGE, UNSPECIFIED Status: Resolved Priority: High Current Visit: Yes Problem Details: Low volume not requiring transfusion. (4) SCIWORA (spinal cord injury without radiographic abnormality) SNOMED Code(s): 20526878 ICD Code: TCO0502 - Status: Chronic Priority: High Current Visit: Yes (5) Acute and chronic respiratory failure SNOMED Code(s): 04396137 ICD Code: J96.20 - ACUTE AND CHR RESP FAILURE, UNSP W HYPOXIA OR HYPERCAPNIA Status: Resolved Priority: High Current Visit: Yes Qualifiers: Respiratory failure complication: hypoxia Qualified Code(s): J96.21 - Acute and chronic respiratory failure with hypoxia - Patient Summary/Data Consults: Consultations 01/10/21 14:11 Consult to Case Management/Vehicle Cost [employer] [CONS] Routine Consult to [employer] [CONS] Routine Consult to Physician [CONS] Routine OT Evaluation and Treatment [CONS] Routine PT Evaluation and Treatment [CONS] Routine Respiratory Care Assess and Treatment [CONS] Routine 01/11/21 10:44 PT Evaluation and Treatment [CONS] Routine Hospital Course: The patient is a 65-year-old gentleman who is 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 This was low volume and not considered appropriate for ICU and did not require any blood transfusion. The patient's hemoglobin had been monitored and was found to be stable throughout his course of hospitalization. The patient had been evaluated by general surgeon, Dr. Viveros, who thought the bleeding was likely secondary to external hemorrhoids. On discharge the patient's hemoglobin was at 16.3 g/dL. Complicating his issue was that upon admission he was tested for COVID-19 and found to be positive. The patient was started on remdesivir 200 mg for the first dose then followed by remdesivir 100 mg IV daily for total of 4 doses. The patient initially had been minimally hypoxic at times requiring 3 L of oxygen via nasal cannula and he had been using this at home. He normally has been using 1 to 1-1/2 L of oxygen at home on occasion. The patient was also noted to have decubitus ulcer on his sacrum that was present on admission which was evaluated by wound care and treated while in hospital. The patient had been given prescriptions for calmoseptine ointment and Mepilex dressings to use at home. The patient continued to improve through his hospitalization. He had been somewhat angry at times and was looking forward to going home. The patient had been ambulating slowly with his own personal 7 wheeled walker. The patient overall has been hemodynamically stable and he was considered appropriate for discharge after completion of the remdesivir. Without consideration for pneumonia the patient was not discharged on dexamethasone. The patient has been recommended to continue with his regular diet as tolerated. He is also to have activity as tolerated. The patient is recommended to follow-up with general surgeon. The patient's has been caring for him and he does not need any skilled care other than wound care which his can perform. The patient has been hemodynamically stable and he has been discharged from acute hospitalization with the recommendations above. - Patient Instructions Diet: Usual Diet as Tolerated Activity: As Tolerated - Discharge Plan *PRESCRIPTION DRUG MONITORING PROGRAM REVIEWED*: No *COPY OF PRESCRIPTION DRUG MONITORING REPORT IN PATIENT MIGUEL: No Prescriptions/Med Rec: Menthol/Zinc Oxide [Calmoseptine Ointment Packet] 3.5 gm TP DAILY #5 oint.pack Silver Sulfate/Foam Bandage [Mepilex Ag 6"X6" Dressing] 1 each TP DAILY PRN #30 bandage PRN Reason: Wound Nursing Home Medications: Home Meds Baclofen 10 mg PO QID 01/16/16 [History] Famotidine [Pepcid] 40 mg PO DAILY 01/16/16 [History] Tiotropium [Spiriva HandiHaler] 1 puff INH DAILY 01/16/16 [History] Acetaminophen [Tylenol Extra Strength] 500 mg PO Q4H PRN 11/20/17 [History] Albuterol [Proventil HFA] 1 puff INH Q6H PRN 11/20/17 [History] Nitroglycerin [Nitro-Bid 2%] 1 inch TOP ASDIRECTED PRN 11/20/17 [History] bisacodyL [Dulcolax] 10 mg RC DAILY PRN 11/20/17 [History] Baclofen 10 mg PO BEDTIME 01/10/21 [History] Diclofenac Sodium [Voltaren] 1 applic TOP TID 01/10/21 [History] Fluticasone Propionate [Allergy Relief] 1 puff NASBOTH BID 01/10/21 [History] Hydrocodone/Acetaminophen [HYDROcodone-Acetaminophen 5-325 MG] 1 tab PO BEDTIME PRN 01/10/21 [History] Lidocaine 5% [Lidoderm 5%] 1 patch TOP DAILY 01/10/21 [History] Menthol [Biofreeze] 1 applic TOP Q2H PRN 01/10/21 [History] Menthol/Zinc Oxide [Calmoseptine] 1 applic TOP Q1H PRN 01/10/21 [History] Simethicone 80 mg PO Q6H PRN 01/10/21 [History] Tamsulosin [Flomax] 0.8 mg PO BEDTIME 01/10/21 [History] guaiFENesin [Mucinex] 1,200 mg PO BID 01/10/21 [History] predniSONE [Prednisone] 40 mg PO DAILY 01/10/21 [History] Menthol/Zinc Oxide [Calmoseptine Ointment Packet] 3.5 gm TP DAILY #5 oint.pack 01/15/21 [Rx] Silver Sulfate/Foam Bandage [Mepilex Ag 6"X6" Dressing] 1 each TP DAILY PRN #30 bandage 01/15/21 [Rx] Oxygen Therapy Mode: Nasal Cannula Oxygen Flow Rate (L/min): 1 Patient Handouts: COVID-19 Frequently Asked Questions, COVID-19, 10 Things You Can Do to Manage Your COVID-19 Symptoms at Home - [facility] (10/01/2020), Gastrointestinal Bleeding, [id number], Sepsis, Self Care, Adult Forms: ED Department Discharge Referrals: Sarah Felton PA-C [Ordering Only Provider] - 01/21/21 10:00 am (Sarah Felton is out of the office and your appt. will be with Yuliya BALLESTEROS) Zach Viveros MD [Physician] - - Discharge Summary/Plan Comment DC Time >30 min.: Yes Total # of Minutes for Discharge Time: 45 - General Info Date of Service: 01/15/21 Admission Dx/Problem (Free Text: Admission Diagnosis/Problem Admission Diagnosis/Problem GI bleed not requiring more than 4 units of blood in 24 hours, ICU, or surgery. Infection with Covid 19 Subjective Update: The patient today says that he feels good. He feels like he can go home. He feels like he is at his baseline. He is denied any new pain. The patient says that he is breathing better. Functional Status: Reports: Pain Controlled, Tolerating Diet. Denies: New Symptoms - Review of Systems General: Reports: No Symptoms HEENT: Reports: No Symptoms Pulmonary: Reports: No Symptoms Cardiovascular: Reports: No Symptoms Gastrointestinal: Reports: No Symptoms Genitourinary: Reports: No Symptoms Musculoskeletal: Reports: No Symptoms Skin: Reports: No Symptoms Neurological: Reports: No Symptoms Psychiatric: Reports: No Symptoms - Patient Data Vitals - Most Recent: Last Vital Signs Temp 36.7 C 01/15/21 04:30 Pulse 60 01/15/21 04:30 Resp 19 01/15/21 04:30 BP 116/63 01/15/21 04:30 Pulse Ox 94 L 01/15/21 04:30 Weight - Most Recent: 89.267 kg I&O - Last 24 hours: Intake & Output 01/14/21 01/15/21 01/15/21 22:59 06:59 14:59 Intake Total 890 450 Balance 890 450 Lab Results - Last 24 hrs: Laboratory Results - last 24 hr 01/12/21 01/15/21 01/15/21 Range/Units 05:25 04:40 04:40 WBC 4.96 (4.23-9.07) K/mm3 RBC 4.89 (4.63-6.08) M/mm3 Hgb 15.6 (13.7-17.5) gm/dl Hct 47.1 (40.1-51.0) % MCV 96.3 H (79.0-92.2) fl MCH 31.9 (25.7-32.2) pg MCHC 33.1 (32.2-35.5) g/dl RDW Std Deviation 48.0 H (35.1-43.9) fL Plt Count 123 L (163-337) K/mm3 MPV 10.6 (9.4-12.3) fl Neut % (Auto) 78.2 H (34.0-67.9) % Lymph % (Auto) 11.7 L (21.8-53.1) % Jones % (Auto) 9.5 (5.3-12.2) % Eos % (Auto) 0 L (0.8-7.0) Baso % (Auto) 0.0 L (0.1-1.2) % Neut # (Auto) 3.88 (1.78-5.38) K/mm3 Lymph # (Auto) 0.58 L (1.32-3.57) K/mm3 Jones # (Auto) 0.47 (0.30-0.82) K/mm3 Eos # (Auto) 0.00 L (0.04-0.54) K/mm3 Baso # (Auto) 0.00 L (0.01-0.08) K/mm3 Sodium 135 L (136-145) mEq/L Potassium 4.5 (3.5-5.1) mEq/L Chloride 100 (98-107) mEq/L Carbon Dioxide 30 (21-32) mEq/L Anion Gap 9.5 (5-15) BUN 27 H (7-18) mg/dL Creatinine 0.8 (0.7-1.3) mg/dL Est Cr Clr Drug Dosing 89.30 mL/min Estimated GFR (MDRD) > 60 (>60) mL/min BUN/Creatinine Ratio 33.8 H (14-18) Glucose 209 H (70-99) mg/dL Calcium 8.4 L (8.5-10.1) mg/dL Magnesium 1.9 (1.8-2.4) mg/dL Total Bilirubin 0.4 (0.2-1.0) mg/dL AST 13 L (15-37) U/L ALT 37 (16-63) U/L Alkaline Phosphatase 73 (46-116) U/L Total Protein 5.7 L (6.4-8.2) g/dl Albumin 2.4 L (3.4-5.0) g/dl Globulin 3.3 gm/dL Albumin/Globulin Ratio 0.7 L (1-2) Miscellaneous Test Comment Med Orders - Current: Current Medications Acetaminophen (Acetaminophen 325 Mg Tab) 650 mg PO Q4H PRN PRN Reason: Pain (Mild 1-3)/fever Last Admin: 01/14/21 23:19 Dose: 650 mg Documented by: Hydrocodone Bitart/Acetaminophen (Acetaminophen/Hydrocodone 325-5 Mg Tab) 1 tab PO Q4H PRN PRN Reason: Pain (moderate 4-6) Last Admin: 01/15/21 01:55 Dose: 1 tab Documented by: Albuterol/Ipratropium (Albuterol/Ipratropium 3.0-0.5 Mg/3 Ml Neb Soln) 3 ml NEB Q4H PRN PRN Reason: Shortness Of Breath/wheezing Baclofen (Baclofen 10 Mg Tab) 10 mg PO BEDTIME [facility] Last Admin: 01/14/21 20:40 Dose: 10 mg Documented by: Baclofen (Baclofen 10 Mg Tab) 10 mg PO QID [facility] Last Admin: 01/14/21 20:40 Dose: 10 mg Documented by: Famotidine (Famotidine 20 Mg Tab) 20 mg PO DAILY [facility] Last Admin: 01/14/21 09:07 Dose: 20 mg Documented by: Fluticasone Propionate (Fluticasone Propionate Nasal Hazel 16 Gm Bottle) 0 gm NASBOTH BID [facility] Last Admin: 01/14/21 20:39 Dose: 1 spray Documented by: Guaifenesin (Guaifenesin 600 Mg Tab.Er) 1,200 mg PO BID [facility] Last Admin: 01/14/21 20:39 Dose: 1,200 mg Documented by: Heparin Sodium (Porcine) (Heparin Sodium 5,000 Units/Ml Vial) 5,000 units SUBCUT Q8H [facility] Last Admin: 01/14/21 23:19 Dose: 5,000 units Documented by: Hydromorphone HCl (Hydromorphone 0.5 Mg/0.5 Ml Syringe) 0.25 mg IVPUSH Q2H PRN PRN Reason: Pain (severe 7-10) Lidocaine (Lidocaine 4% 1 Each Patch) 1 each TOP DAILY [facility] Last Admin: 01/14/21 09:05 Dose: 1 each Documented by: Melatonin (Melatonin 3 Mg Tab) 6 mg PO BEDTIME [facility] Last Admin: 01/14/21 23:21 Dose: Not Given Documented by: Miscellaneous Information (Remove Patch) 0 ea TRDERM Q24H [facility] Last Admin: 01/14/21 22:00 Dose: 1 ea Documented by: Ondansetron HCl (Ondansetron 4 Mg/2 Ml Sdv) 4 mg IV Q4H PRN PRN Reason: Nausea/Vomiting Pantoprazole Sodium (Pantoprazole 40 Mg Tab.Cr) 40 mg PO DAILY [facility] Last Admin: 01/14/21 12:41 Dose: 40 mg Documented by: Simethicone (Simethicone 80 Mg Tab.Chew) 80 mg PO Q6H PRN PRN Reason: Gas Sodium Chloride (Sodium Chloride 0.9% 10 Ml Syringe) 10 ml FLUSH ASDIRECTED PRN PRN Reason: Keep Vein Open Last Admin: 01/10/21 10:49 Dose: 10 ml Documented by: Tamsulosin HCl (Tamsulosin 0.4 Mg Cap.Er) 0.8 mg PO BEDTIME [facility] Last Admin: 01/14/21 20:38 Dose: 0.8 mg Documented by: Tiotropium [place] (Tiotropium [place] 4 Gm Inhalation Hazel (2.5mcg/1 Dose; 10 Doses)) 0 gm INH DAILY [facility] Last Admin: 01/14/21 08:56 Dose: 2 puff Documented by: Zinc Sulfate (Zinc Sulfate 220 Mg Cap) 220 mg PO DAILY [facility] Last Admin: 01/14/21 09:05 Dose: 220 mg Documented by: Discontinued Medications Baclofen (Baclofen 10 Mg Tab) 10 mg PO ONETIME ONE Stop: 01/11/21 00:50 Last Admin: 01/11/21 01:34 Dose: 10 mg Documented by: Dexamethasone (Dexamethasone 4 Mg Tab) 6 mg PO DAILY [facility] Last Admin: 01/14/21 09:17 Dose: 6 mg Documented by: Famotidine (Famotidine 20 Mg/2 Ml Sdv) 20 mg IVPUSH BEDTIME [facility] Last Admin: 01/10/21 21:15 Dose: 20 mg Documented by: Sodium Chloride (Normal Saline) 1,000 mls @ 100 mls/hr IV ASDIRECTED [facility] Last Admin: 01/11/21 04:29 Dose: 100 mls/hr Documented by: Remdesivir 200 mg/ Sodium (Chloride) 250 mls @ 250 mls/hr IV ONETIME ONE Stop: 01/10/21 17:26 Last Admin: 01/10/21 18:49 Dose: 250 mls/hr Documented by: Remdesivir 100 mg/ Sodium (Chloride) 100 mls @ 100 mls/hr IV Q24H [facility] Stop: 01/14/21 19:59 Last Admin: 01/14/21 18:01 Dose: 100 mls/hr Documented by: Influenza Virus Vaccine (Flu Vacc Vo2028(65up)/Mf59c/Pf 60 Mcg/0.5 Ml Syringe) 60 mcg IM .ONCE ONE Stop: 01/10/21 20:01 Iopamidol (Iopamidol 612 Mg/Ml 50 Ml Sdv) 50 ml IVPUSH ONETIME ONE Stop: 01/10/21 12:33 Last Admin: 01/10/21 12:58 Dose: 50 ml Documented by: Iopamidol (Iopamidol 612 Mg/Ml 100 Ml Bottle) 100 ml IVPUSH ONETIME ONE Stop: 01/10/21 12:33 Last Admin: 01/10/21 12:58 Dose: 100 ml Documented by: Sodium Chloride (Sodium Chloride 0.9% 10 Ml Syringe) 10 ml FLUSH ONETIME PRN PRN Reason: IV FLUSH Last Admin: 01/10/21 12:58 Dose: 10 ml Documented by: Temazepam (Temazepam 7.5 Mg Cap) 7.5 mg PO BEDTIME PRN PRN Reason: Sleep - Exam Quality Assessment: Reports: Supplemental Oxygen, DVT Prophylaxis General: Reports: Alert, Oriented, Cooperative HEENT: Reports: Pupils Equal, Pupils Reactive, EOMI, Mucous Membr. Moist/[place] Neck: Reports: Supple, Trachea Midline Lungs: Reports: Clear to Auscultation, Normal Respiratory Effort Cardiovascular: Reports: Regular Rate, Regular Rhythm GI/Abdominal Exam: Normal Bowel Sounds, Soft, Non-Tender, No Distention (Male) Exam: Deferred Rectal (Males) Exam: Deferred Back Exam: Denies: Normal Inspection (Functional quadriplegic), Full Range of Motion (Limited range of motion) Extremities: No: Normal Inspection, Normal Range of Motion (Admitted range of motion due to functional quadriplegia) Skin: Reports: Warm, Dry, Intact Neurological: Reports: No New Focal Deficit, Normal Speech. Denies: Normal Gait Psy/Mental Status: Reports: Alert, Normal Affect, Normal Mood *Q Meaningful Use (DIS) - VTE *Q VTE Anticoagulation Contraindications: Medical/Procedure Contrai
[2021-01-15 08:18] VITALS: BP 120/70; PULSE 59
[2021-01-15] MEDS: Lidocaine 4% 1 each Patch TOP SCH (08:47)
[2021-01-15] MEDS: Baclofen 10 MG Tab PO SCH (08:48)
[2021-01-15] MEDS: Famotidine 20 MG Tab PO SCH (08:48)
[2021-01-15] MEDS: Pantoprazole 40 MG Tab.CR PO SCH (08:48)
[2021-01-15] MEDS: Zinc Sulfate 220 MG Cap PO SCH (08:48)
[2021-01-15] MEDS: guaiFENesin 600 MG Tab.ER PO SCH (08:48)
[2021-01-15] MEDS: Tiotropium Bromide 4 GM Inhalation Spray (2.5mcg/1 dose; 10 doses) INH SCH (08:53)
[2021-01-15] MEDS: Fluticasone Propionate Nasal Spray 16 GM Bottle NASBOTH SCH (11:21)
[2021-01-15] MEDS: Heparin Sodium 5,000 Units/ML Vial SUBCUT SCH (11:21)
== END 2021-01-15 12:00 | disposition home or self-care (01) | DRG 393 ==
LOC: JD.ED 10:20 → JD.MS 14:11
PROVIDERS: ADMIT Internal Medicine; ATTEND Internal Medicine
PROC: XW033E5 Introduction of Remdesivir Anti-infective into Peripheral Vein, Percutaneous Approach, New Technology Group 5 (ICD-10-PCS; principal; 2021-01-10)
PROC: 3E0DX3Z Introduction of Anti-inflammatory into Mouth and Pharynx, External Approach (ICD-10-PCS; 2021-01-10)
DX: K92.1 Melena (principal); K64.4 Residual hemorrhoidal skin tags; U07.1 COVID-19; G82.54 Quadriplegia, C5-C7 incomplete; J96.21 Acute and chronic respiratory failure with hypoxia; K92.2 Gastrointestinal hemorrhage, unspecified; J44.9 Chronic obstructive pulmonary disease, unspecified; M54.9 Dorsalgia, unspecified; K59.09 Other constipation; L89.152 Pressure ulcer of sacral region, stage 2; K21.9 Gastro-esophageal reflux disease without esophagitis; R32 Unspecified urinary incontinence; R33.9 Retention of urine, unspecified; G89.29 Other chronic pain; M54.50 Low back pain, unspecified; M19.90 Unspecified osteoarthritis, unspecified site; Z87.891 Personal history of nicotine dependence; Z79.899 Other long term (current) drug therapy; Z79.52 Long term (current) use of systemic steroids
CPT/HCPCS: 36415; 74177; 80053; 85007; 85027; 85610; 99285; Q9967 ×2; U0002; 71045; 71045-26; 82306; 83735; 85014; 85018; 85025; 85379; 86022; 86140; 90694; 94640; 94667; 94668; 94762; 97162-GP; 97530-GP; A9270-GY; G0008; J1644; J3490; J7030; J7050; J8540

== ENCOUNTER 2021-01-20 03:04 | Emergency (ER) | payer MEDICARE, OTHER ==
[2021-01-20] MEDS ORDERED: Sodium Chloride 0.9% 1,000 ML IV ONE (03:43)
--- NOTE | 2021-01-20 04:04 | EDM.PDOC ---
<Matty Joseph - Last Filed: 01/20/21 16:23> ED HPI GENERAL MEDICAL PROBLEM - General Chief Complaint: Respiratory Problem Stated Complaint: [facility] Time Seen by Provider: 01/20/21 03:30 - Related Data Allergies Allergy/AdvReac Type Severity Reaction Status Date / Time No Known Allergies Allergy Verified 01/20/21 03:18 Home Meds: Home Meds Baclofen 10 mg PO QID 01/16/16 [History] Famotidine [Pepcid] 40 mg PO DAILY 01/16/16 [History] Tiotropium [Spiriva HandiHaler] 1 puff INH DAILY 01/16/16 [History] Acetaminophen [Tylenol Extra Strength] 500 mg PO Q4H PRN 11/20/17 [History] Albuterol [Proventil HFA] 1 puff INH Q6H PRN 11/20/17 [History] Nitroglycerin [Nitro-Bid 2%] 1 inch TOP ASDIRECTED PRN 11/20/17 [History] bisacodyL [Dulcolax] 10 mg RC DAILY PRN 11/20/17 [History] Baclofen 10 mg PO BEDTIME 01/10/21 [History] Diclofenac Sodium [Voltaren] 1 applic TOP TID 01/10/21 [History] Fluticasone Propionate [Allergy Relief] 1 puff NASBOTH BID 01/10/21 [History] Hydrocodone/Acetaminophen [HYDROcodone-Acetaminophen 5-325 MG] 1 tab PO BEDTIME PRN 01/10/21 [History] Lidocaine 5% [Lidoderm 5%] 1 patch TOP DAILY 01/10/21 [History] Menthol [Biofreeze] 1 applic TOP Q2H PRN 01/10/21 [History] Menthol/Zinc Oxide [Calmoseptine] 1 applic TOP Q1H PRN 01/10/21 [History] Simethicone 80 mg PO Q6H PRN 01/10/21 [History] Tamsulosin [Flomax] 0.8 mg PO BEDTIME 01/10/21 [History] guaiFENesin [Mucinex] 1,200 mg PO BID 01/10/21 [History] predniSONE [Prednisone] 40 mg PO DAILY 01/10/21 [History] Menthol/Zinc Oxide [Calmoseptine Ointment Packet] 3.5 gm TP DAILY #5 oint.pack 01/15/21 [Rx] Silver Sulfate/Foam Bandage [Mepilex Ag 6"X6" Dressing] 1 each TP DAILY PRN #30 bandage 01/15/21 [Rx] Course - Re-Assessments/Exams Free Text/Narrative Re-Assessment/Exam: 01/20/21 06:00. Have assumed care after change of shift. I agree with hx and exam as documented by Dr Henriquez. Labs reviewed. He is over gettting his CTPA at this time. I am informed his sats are running in the low 90's on 10 L O2 with a nonrebreather mask, significantly more requirement than his baseline 2 L NC. He has had 1 liter of fluid. His WBC was normal at 5,650. As noted lactic acid was 3.0, Dr Henriquez does not believe this is due to sepsis but rather underlying illness, relative dehydration and I agree those are his known problems. Blood cultures times 2 have been done. He has had 1 liter of NS. BP is up to 111/62 from 80's systolic on arrival. Will give a further liter of LR over the next 2 hrs, continue cautious rehydration after that with consider of underlying covid disease and known need to be cautious with rehydration. Will switch him from the 10 L NRB to high flow oxygen. We are currently on diversion. Will see if the [facility] have any covid beds available. 01/20/21 06:35. CTPA shows no evidence for PE. He does have bilateral infiltrates suggestive for covid pneumonia. 01/20/21 07:[address] [facility] full, checking with [facility] He is on high flow at 50 L, 80 % Fio2, sats 92 % with that. 01/20/21 08:44. [facility] will take him once they have a covid bed that opens up for him, expected to happen later this morning. Dr Alvarado, Hospitalist accepting Phys. Sx and findings also discussed with Dr Camp, [facility]. We will send him by ground ambulance once we get a room #. Order for repeat lactic acid placed. 01/20/21 09:02. I am informed by his nurse that he has not been tolerating the high flow NC, threatening to take it off, switched back to NRB, 10 L. 01/20/21 12)5. Repeat lactic acid is 1. Still waiting to here from [place] for their readiness to take/send patient. Departure - Departure Time of Disposition: 08:45 Disposition: DC/Tfer to Acute Hospital 02 Condition: Serious Clinical Impression: Pneumonia due to COVID-19 virus, Hypoxia, Quadriplegia COPD (chronic obstructive pulmonary disease) Qualifiers: COPD type: unspecified COPD Qualified Code(s): J44.9 - Chronic obstructive pulmonary disease, unspecified - Discharge Information Referrals: PCP,None [Primary Care Provider] - Forms: ED Department Discharge <Graham Henriquez - Last Filed: 01/21/21 16:40> ED HPI GENERAL MEDICAL PROBLEM - General Source of Information: Reports: Patient, Old Records (D/C summary 01/15/2021) History Limitations: Reports: Uncooperative (Hostile, replying "I don't know, go ask my " to most questions) - History of Present Illness INITIAL COMMENTS - FREE TEXT/NARRATIVE: Mr. Cali is a 65-year-old man with a past medical history significant for functional quadriplegia due to a cervical spinal cord injury in 2015, who, medical records indicate, was admitted to the [facility] for 3-1/2 weeks for a COPD exacerbation, being discharged on or about 01/10/2021. He was then seen in this ED on 01/10/2021 for painless rectal bleeding. He was found to be hemodynamically stable, afebrile, saturating 92% on room air. His physical exam was notable for fallon red blood on rectal exam. Work-up included a CBC, CMP, PT/INR, a swab for the SARS-CoV-2 virus, and a CT of the abdomen and pelvis with oral and IV contrast. His blood work was unremarkable, but his swab for the SARS-CoV-[address] virus [address] positive[address] The CT scan noted patchy areas of consolidation within both lungs likely representing mild bibasilar pneumonia. The patient was admitted for further evaluation. His rectal bleeding was felt due to external hemorrhoids. His COVID-19 was treated with dexamethasone and remdesivir. The triage note indicates that the patient received an infusion of monoclonal antibodies yesterday, but the patient adamantly denies that, stating that since discharge from the hospital, he has stayed at home. He also denies, however, that he has COPD. The patient now returns to the ED by EMS stating that he has had dyspnea on and off since around 1900 last night. He acknowledges that he chronically has intermittent dyspnea, and that his current dyspnea is no different than his usual. He also reports having a cough occasionally productive of sputum for the past few years. No recent wheezing. He denies recently having a fever. He did not take any [id number] or home remedies to specifically address his symptoms. EMS found the patient's SPO2 to be depressed. They placed a nonrebreather mask. At triage, the patient's initial BP was found to be depressed at 80/53, with tachycardia of 121 bpm and tachypnea of 27 rpm. He is afebrile, saturating 92% on 10 L with a nonrebreather mask. He is not in acute distress. The patient denies having a recent fever, chills, sore throat, ear pain, nasal or sinus congestion, chest pain, palpitations, nausea, vomiting, constipation, diarrhea, abdominal pain, urinary symptoms, recent weight gain or weight loss, recent bloody bowel movements or black bowel movements, recent joint aches, headaches, or rashes. The patient states that he does not have a PCP. His Surgeon is Dr. Zach Viveros. He does not know if he has received a COVID vaccination or influenza vaccination. Generalized Pain Score (Numeric/FACES): 5 Past Medical History Respiratory History: Reports: COPD (intermittent use home O2) Gastrointestinal History: Reports: GERD, GI Bleed Genitourinary History: Reports: BPH Musculoskeletal History: Reports: Fracture, Osteoarthritis Neurological History: Reports: Concussion, Other (See Below) (Incomplete quadraplegia from cervical spinal cord injury 2016) - Infectious Disease History Infectious Disease History: Reports: Chicken Pox, Measles, Mumps, Novel Coronavirus (dx'd 01/10/2021) - Past Surgical History Neurological Surgical History: Reports: C-Spine (C4,5,6 cage) Social & Family History - Tobacco Use Tobacco Use Status *Q: Former Tobacco User Years of Tobacco use: 51 Packs/Tins Daily: 1 Month/Year Tobacco Last Used: Quit 2017 Tobacco Use Comment: Started smoking 1965 - Caffeine Use Caffeine Use: Reports: None - Alcohol Use Alcohol Use History: No - Recreational Drug Use Recreational Drug Use: No - Living Situation & Occupation Living situation: Reports: , with Spouse Occupation: Disabled ED ROS GENERAL - Review of Systems Review Of Systems: Comprehensive ROS is negative, except as noted in HPI. ED EXAM, GENERAL - Physical Exam Exam: See Below Exam Limited By: No Limitations General Appearance: Alert, WD/WN, No Apparent Distress Eye Exam: Bilateral Eye: EOMI, Normal Inspection Ears: Normal External Exam, Hearing Grossly Normal Nose: Normal Inspection Throat/Mouth: Normal Inspection, Normal Lips, Normal Voice, No Airway Compromise Head: Atraumatic, Normocephalic Neck: Normal Inspection, Full Range of Motion Respiratory/Chest: No Respiratory Distress, Lungs Clear, Normal Breath Sounds, No Accessory Muscle Use, Rales (scattered). No: Decreased Breath Sounds, Crackles, Wheezing, Stridor, Accessory Muscle Use, Prolonged Expiration Cardiovascular: Normal Peripheral Pulses, No Edema, No Gallop, No JVD, No Murmur, No Rub, Tachycardia (regular) Peripheral Pulses: 3+: Radial (L), Radial (R) GI/Abdominal: Normal Bowel Sounds, Soft, No Organomegaly, No Distention, No Abnormal Bruit, No Mass, Tender (Mild, generalized - chronic x 2016) Extremities: Normal Inspection, No Pedal Edema, Normal Capillary Refill Neurological: Alert, Oriented, Normal Cognition, Other (Functional quadriplegia - minimal use of bilateral upper and lower extremities) Psychiatric: Other (Angry/hostile) Skin Exam: Warm, Dry, Intact, Normal Color, No Rash #1 Interpretation EKG Date: 01/20/21 Time: 04:12 Rhythm: Other (Sinus tachycardia) Rate (Beats/Min): 115 [place]: Normal P-Wave: Present QRS: Normal ST-T: Normal QT: Normal Comparison: No Change (02/27/2017) Course - Vital Signs Last Recorded V/S: Last Vital Signs Temp 36.9 C 01/20/21 03:21 Pulse 102 H 01/20/21 12:02 Resp 24 H 01/20/21 12:02 BP 128/70 01/20/21 12:02 Pulse Ox 90 L 01/20/21 12:02 - Orders/Labs/Meds Labs: Laboratory Tests 01/20/21 01/20/21 01/20/21 Range/Units 03:21 03:21 03:21 WBC 5.65 (4.23-9.07) K/mm3 RBC 5.07 (4.63-6.08) M/mm3 Hgb 16.2 (13.7-17.5) gm/dl Hct 48.9 (40.1-51.0) % MCV 96.4 H (79.0-92.2) fl MCH 32.0 (25.7-32.2) pg MCHC 33.1 (32.2-35.5) g/dl RDW Std Deviation 48.3 H (35.1-43.9) fL Plt Count 102 L (163-337) K/mm3 MPV 11.0 (9.4-12.3) fl Neutrophils % (Manual) 82 H (40-60) % Band Neutrophils % 9 (0-10) % Lymphocytes % (Manual) 6 L (20-40) % Atypical Lymphs % 0 % Monocytes % (Manual) 3 (2-10) % Eosinophils % (Manual) 0 L (0.8-7.0) % Basophils % (Manual) 0 L (0.2-1.2) Toxic Granulation 1+ slight Platelet Estimate Decreased RBC Morph Comment Normal PT 10.1 (9.7-12.0) SECONDS INR < 0.93 APTT 29.0 (21.7-31.4) SECONDS D-Dimer, Quantitative 1.02 H (0.19-0.50) mg/L Puncture Site ABG pH (7.35-7.45) ABG pCO2 (35.0-45.0) mmHg ABG pO2 (80.0-100.0) mmHg ABG HCO3 (22.0-26.0) meq/L ABG O2 Saturation (96.0-97.0) % ABG Base Excess (-2-2.0) Eduard Test O2 Delivery Device Sodium 132 L (136-145) mEq/L Potassium 4.2 (3.5-5.1) mEq/L Chloride 94 L (98-107) mEq/L Carbon Dioxide 32 (21-32) mEq/L Anion Gap 10.2 (5-15) BUN 13 (7-18) mg/dL Creatinine 1.0 (0.7-1.3) mg/dL Est Cr Clr Drug Dosing TNP Estimated GFR (MDRD) > 60 (>60) mL/min BUN/Creatinine Ratio 13.0 L (14-18) Glucose 166 H (70-99) mg/dL Lactic Acid (0.4-2.0) mmol/L Calcium 8.2 L (8.5-10.1) mg/dL Total Bilirubin 0.6 (0.2-1.0) mg/dL AST 34 (15-37) U/L ALT 48 (16-63) U/L Alkaline Phosphatase 85 (46-116) U/L Troponin I 0.022 (0.00-0.056) ng/mL C-Reactive Protein (<1.0) mg/dL NT-Pro-B Natriuret Pep (0-125) pg/mL Total Protein 6.4 (6.4-8.2) g/dl Albumin 2.2 L (3.4-5.0) g/dl Globulin 4.2 gm/dL Albumin/Globulin Ratio 0.5 L (1-2) 01/20/21 01/20/21 01/20/21 Range/Units 03:21 03:21 03:21 WBC (4.23-9.07) K/mm3 RBC (4.63-6.08) M/mm3 Hgb (13.7-17.5) gm/dl Hct (40.1-51.0) % MCV (79.0-92.2) fl MCH (25.7-32.2) pg MCHC (32.2-35.5) g/dl RDW Std Deviation (35.1-43.9) fL Plt Count (163-337) K/mm3 MPV (9.4-12.3) fl Neutrophils % (Manual) (40-60) % Band Neutrophils % (0-10) % Lymphocytes % (Manual) (20-40) % Atypical Lymphs % % Monocytes % (Manual) (2-10) % Eosinophils % (Manual) (0.8-7.0) % Basophils % (Manual) (0.2-1.2) Toxic Granulation Platelet Estimate RBC Morph Comment PT (9.7-12.0) SECONDS INR APTT (21.7-31.4) SECONDS D-Dimer, Quantitative (0.19-0.50) mg/L Puncture Site ABG pH (7.35-7.45) ABG pCO2 (35.0-45.0) mmHg ABG pO2 (80.0-100.0) mmHg ABG HCO3 (22.0-26.0) meq/L ABG O2 Saturation (96.0-97.0) % ABG Base Excess (-2-2.0) Eduard Test O2 Delivery Device Sodium (136-145) mEq/L Potassium (3.5-5.1) mEq/L Chloride (98-107) mEq/L Carbon Dioxide (21-32) mEq/L Anion Gap (5-15) BUN (7-18) mg/dL Creatinine (0.7-1.3) mg/dL Est Cr Clr Drug Dosing Estimated GFR (MDRD) (>60) mL/min BUN/Creatinine Ratio (14-18) Glucose (70-99) mg/dL Lactic Acid 3.0 H* (0.4-2.0) mmol/L Calcium (8.5-10.1) mg/dL Total Bilirubin (0.2-1.0) mg/dL AST (15-37) U/L ALT (16-63) U/L Alkaline Phosphatase (46-116) U/L Troponin I (0.00-0.056) ng/mL C-Reactive Protein 16.4 H* (<1.0) mg/dL NT-Pro-B Natriuret Pep 831 H (0-125) pg/mL Total Protein (6.4-8.2) g/dl Albumin (3.4-5.0) g/dl Globulin gm/dL Albumin/Globulin Ratio (1-2) 01/20/21 01/20/21 Range/Units 04:14 09:00 WBC (4.23-9.07) K/mm3 RBC (4.63-6.08) M/mm3 Hgb (13.7-17.5) gm/dl Hct (40.1-51.0) % MCV (79.0-92.2) fl MCH (25.7-32.2) pg MCHC (32.2-35.5) g/dl RDW Std Deviation (35.1-43.9) fL Plt Count (163-337) K/mm3 MPV (9.4-12.3) fl Neutrophils % (Manual) (40-60) % Band Neutrophils % (0-10) % Lymphocytes % (Manual) (20-40) % Atypical Lymphs % % Monocytes % (Manual) (2-10) % Eosinophils % (Manual) (0.8-7.0) % Basophils % (Manual) (0.2-1.2) Toxic Granulation Platelet Estimate RBC Morph Comment PT (9.7-12.0) SECONDS INR APTT (21.7-31.4) SECONDS D-Dimer, Quantitative (0.19-0.50) mg/L Puncture Site Rt radial ABG pH 7.44 (7.35-7.45) ABG pCO2 45.5 H (35.0-45.0) mmHg ABG pO2 68.0 L (80.0-100.0) mmHg ABG HCO3 30.7 H (22.0-26.0) meq/L ABG O2 Saturation 94.4 L (96.0-97.0) % ABG Base Excess 6.0 H (-2-2.0) Eduard Test Positive O2 Delivery Device Nrb Sodium (136-145) mEq/L Potassium (3.5-5.1) mEq/L Chloride (98-107) mEq/L Carbon Dioxide (21-32) mEq/L Anion Gap (5-15) BUN (7-18) mg/dL Creatinine (0.7-1.3) mg/dL Est Cr Clr Drug Dosing Estimated GFR (MDRD) (>60) mL/min BUN/Creatinine Ratio (14-18) Glucose (70-99) mg/dL Lactic Acid 1.0 (0.4-2.0) mmol/L Calcium (8.5-10.1) mg/dL Total Bilirubin (0.2-1.0) mg/dL AST (15-37) U/L ALT (16-63) U/L Alkaline Phosphatase (46-116) U/L Troponin I (0.00-0.056) ng/mL C-Reactive Protein (<1.0) mg/dL NT-Pro-B Natriuret Pep (0-125) pg/mL Total Protein (6.4-8.2) g/dl Albumin (3.4-5.0) g/dl Globulin gm/dL Albumin/Globulin Ratio (1-2) Meds: Medications Discontinued Medications Generic Name Dose Route Start Last Admin Trade Name Freq PRN Reason Stop Dose Admin Sodium Chloride 1,000 mls @ 999 mls/hr 01/20/21 03:43 01/20/21 04:01 Normal Saline IV 01/20/21 04:43 999 mls/hr ONETIME ONE Administration Sodium Chloride 100 mls @ 60 mls/hr 01/20/21 05:30 01/20/21 06:10 Normal Saline IV 60 mls/hr ASDIRECTED RACHELE Administration Lactated Ringer's 1,000 mls @ 500 mls/hr 01/20/21 06:52 01/20/21 07:00 Ringers, Lactated IV 01/20/21 08:51 500 mls/hr .BOLUS ONE Administration Iopamidol 100 ml 01/20/21 05:23 01/20/21 06:10 Iopamidol 755 Mg/Ml 100 Ml Bottle IVPUSH 01/20/21 05:24 100 ml ONETIME ONE Administration Methylprednisolone Sodium Succinate 125 mg 01/20/21 06:39 01/20/21 06:59 Methylprednisolone Sodium Succinate 125 Mg/2 Ml Sdv IVPUSH 01/20/21 06:40 125 mg ONETIME ONE Administration Sodium Chloride 10 ml 01/20/21 05:23 01/20/21 06:10 Sodium Chloride 0.9% 10 Ml Syringe FLUSH 10 ml ONETIME PRN Administration Keep Vein Open - Re-Assessments/Exams Free Text/Narrative Re-Assessment/Exam: 01/20/21 04:03 The patient's BP was depressed at 80/53, with tachycardia of 121 bpm at triage. I ordered a 1 L bolus of NS. I have ordered a work-up that includes numerous blood tests, 2 sets of blood cultures, an ABG, a portable chest x-ray, and an ECG. 01/20/21 04:35 Portable chest radiograph reviewed. Poor inspiratory effort. The cardiac silhouette is within normal limits. No pulmonary vascular congestion. No pleural effusions seen on this AP view. There are bilateral hazy infiltrates, consistent with COVID pneumonia, increased from prior exam 01/12/2021. No pneumothorax. Thoracic scoliosis. Formal read per the Radiologist pending. 01/20/21 05:10 The patient's CBC is remarkable for thrombocytopenia of 102,000, and is otherwise unremarkable. His CMP is remarkable for mild hyponatremia of 132, and hyperglycemia of 166, with the remainder of his CMP being unremarkable. His lactic acid level is elevated at 3.0. His CRP is significantly elevated at 16.4. His troponin is within normal limits at 0.022. His pro-BNP is modestly elevated at 831. His D-dimer is elevated at 1.02. His coags are within normal limits. His ABG represents a primary metabolic alkalosis with appropriately compensated respiratory acidosis. Evidence suggestive of a bacterial infection, such as pneumonia, includes hypotension, tachycardia, tachypnea, hypoxemia, and an elevated lactic acid level. Evidence against it includes a known recent history of COVID-19, no leukocytosis, no recent fever, and no change in his chronic cough. Equivocal evidence includes a chest x-ray with bilateral infiltrates, more consistent with COVID pneumonia than bacterial pneumonia, and intermittent dyspnea of undetermined duration or severity. The patient's D-dimer elevation is most likely due to COVID-19, but a pulmonary embolus is a possibility, and would explain his abnormal vital signs. I will therefore order a CT angiogram of the chest to not only evaluate for a pulmonary mass, but also, hopefully, shed some light on whether or not there is evidence for bacterial pneumonia. 01/20/21 05:[address] Hugo Vicente, and care of the patient turned over to him at this time, for change of shift.
[2021-01-20] MEDS ORDERED: Iopamidol 755 Mg/ML 100 ML Bottle IVPUSH ONE (05:23)
[2021-01-20] MEDS ORDERED: Sodium Chloride 0.9% 10 ML Syringe FLUSH PRN (05:23)
[2021-01-20] MEDS ORDERED: Sodium Chloride 0.9% 100 ML IV SCH (05:30)
--- NOTE | 2021-01-20 06:28 | CT ---
CT chest Technique: Multiple axial sections through the chest were obtained. Intravenous contrast was utilized. Study has been performed as a pulmonary angiogram protocol. Comparison: No prior CT chest study is available, prior chest x-ray of 01/12/21 was utilized. Findings: Pulmonary arteries are well-opacified. No filling defects are seen to indicate pulmonary embolism. Thoracic aorta shows atherosclerotic calcification with no aneurysm. Coronary artery calcification is noted. No axillary adenopathy is seen. Minimal pericardial effusion is seen posteriorly. Heart is mildly enlarged. Visualized upper abdominal structures show nothing acute. Lung window settings were reviewed. Diffuse emphysematous change is seen. Areas of increased density are noted within the upper lungs as well as consolidation within both lower lungs (worse within the right base). Bone window settings were reviewed. Scattered disc space narrowing and endplate spurring is noted within the spine. No acute osseous abnormality is appreciated. Impression: 1. No findings of pulmonary embolism. 2. Cardiomegaly and slight pericardial effusion. 3. Consolidation within both lung bases, worse on the right side. Patchy areas of increased density are seen within both upper lungs. Diffuse emphysematous change is also noted. Findings most likely represent multifocal pneumonia. Please exclude COVID disease. 4. Other findings as noted above which are more chronic. Diagnostic code #3
--- NOTE | 2021-01-20 06:31 | CR ---
Chest: Portable view of the chest was obtained. Comparison: Prior chest x-ray of 01/12/21. Increased density is seen within the left lung base. Mild atelectasis is seen within the right lung base. Heart size and mediastinum are unchanged from prior chest x-ray. Bony structures show nothing acute. Impression: 1. Increased density within the left lung base raising the possibility of pneumonia. Please correlate with the patient's symptoms. 2. Mild atelectasis is noted within the right lung base. Diagnostic code #3
[2021-01-20] MEDS ORDERED: methylPREDNISolone Sodium Succinate 125 MG/2 ML SDV IVPUSH ONE (06:39)
[2021-01-20] MEDS ORDERED: Lactated Ringers 1,000 ML IV ONE (06:52)
[2021-01-20 12:03] VITALS: BP 128/70; PULSE 102
== END 2021-01-20 14:49 ==
LOC: JD.ED 03:04
DX: U07.1 COVID-19 (principal); J12.82 Pneumonia due to coronavirus disease 2019; J44.9 Chronic obstructive pulmonary disease, unspecified; R09.02 Hypoxemia; R53.2 Functional quadriplegia; N40.0 Benign prostatic hyperplasia without lower urinary tract symptoms; K21.9 Gastro-esophageal reflux disease without esophagitis; R79.89 Other specified abnormal findings of blood chemistry; R79.82 Elevated C-reactive protein (CRP); Z79.899 Other long term (current) drug therapy; Z87.891 Personal history of nicotine dependence
CPT/HCPCS: 36415; 36600; 71045; 71275; 80053; 82803; 83605; 83880; 84484; 85007; 85027; 85379; 85610; 85730; 86140; 87040; 93005; 96374; 99285; J2930; J7030; J7120; Q9967